=== PATIENT | female | born 1945 | race Caucasian/White ===

== ENCOUNTER → 2018-05-05 08:33 | Outpatient (CLI) | payer MEDICARE, OTHER, SELFPAY ==
[2018-05-05 10:22] LABS: Cholesterol 233 mg/dL (140-199); Glucose 92 mg/dL (80-110); HDL Cholesterol 49 mg/dL (40-60); LDL Cholesterol Calculated 151 mg/dL (<100); Triglycerides 164 mg/dL (35-150)
== END ==
PROVIDERS: PCP Physician Assistant; Visit Provider Physician Assistant
DX: Z13.1 Encounter for screening for diabetes mellitus (principal); Z13.220 Encounter for screening for lipoid disorders; Z13.6 Encounter for screening for cardiovascular disorders
CPT/HCPCS: 36415; 80061; 82947

== ENCOUNTER → 2018-07-06 14:57 | Outpatient (CLI) | payer MEDICARE, OTHER, SELFPAY ==
--- NOTE | 2018-07-06 15:02 | DI.RAD.S_ITS ---
PROCEDURE: XR WRIST RT MIN 3V INDICATIONS: Pain thumb/wrist TECHNIQUE: 4 views of the wrist were acquired. COMPARISON: [facility], , WRIST MINIMUM 3 VIEWS LEFT, 08/02/2015, 14:36. FINDINGS: Bones: No fractures or dislocations. No suspicious bony lesions. First CMC and triscaphe joint degeneration Soft tissues: No suspicious soft tissue calcifications. IMPRESSION: First CMC and triscaphe joint degeneration Dictated by: Adonay Gardner M.D. on 07/06/2018 at 16:16 Approved by: Adonay Gardner M.D. on 07/06/2018 at 16:25
--- NOTE | 2018-07-06 15:02 | DI.RAD.S_ITS ---
PROCEDURE: XR HAND RT MIN 3V INDICATIONS: Pain thumb/wrist TECHNIQUE: 3 views of the hand(s) acquired. COMPARISON: [facility], , HAND 3V LEFT, 08/02/2015, 14:36. FINDINGS: Bones: No fractures or dislocations. Carpal bones are normally aligned. No suspicious bony lesions. First CMC and triscaphe joint degeneration. Diffuse interphalangeal joint degeneration, with some marginal lucencies for example the PIP joint of the ring finger. Additional marginal lucencies present at the DIP joints of the index and middle finger as well as the PIP joints of the middle finger. Soft tissues: No suspicious soft tissue calcifications. IMPRESSION: First CMC and triscaphe joint degeneration Pauciarticular marginal lucencies raise the possibility of erosive arthropathy as detailed above. Dictated by: Adonay Gardner M.D. on 07/06/2018 at 16:14 Approved by: Adonay Gardner M.D. on 07/06/2018 at 16:16
== END ==
PROVIDERS: PCP Physician Assistant; Visit Provider Physician Assistant
DX: M79.644 Pain in right finger(s) (principal); M25.531 Pain in right wrist; M79.641 Pain in right hand; M18.11 Unilateral primary osteoarthritis of first carpometacarpal joint, right hand; M19.031 Primary osteoarthritis, right wrist; Z98.890 Other specified postprocedural states
CPT/HCPCS: 73110; 73130

== ENCOUNTER → 2019-01-19 08:49 | Outpatient (CLI) | payer MEDICARE, OTHER, SELFPAY ==
[2019-01-19 09:37] LABS: Cholesterol 258 mg/dL (140-199); HDL Cholesterol 48 mg/dL (40-60); LDL Cholesterol Calculated 186 mg/dL (<100); Triglycerides 120 mg/dL (35-150)
== END ==
PROVIDERS: PCP Physician Assistant; Visit Provider Physician Assistant
DX: E78.2 Mixed hyperlipidemia (principal)
CPT/HCPCS: 36415; 80061

== ENCOUNTER 2019-04-16 22:50 | Observation (INO) | payer MEDICARE, OTHER, SELFPAY ==
[2019-04-16 23:03] VITALS: BP 189/95; PULSE 124; RESP 20; O2SAT 98
--- NOTE | 2019-04-16 23:04 | DI.RAD.S_ITS ---
PROCEDURE: XR CHEST 1V INDICATIONS: chest pain TECHNIQUE: One view of the chest was acquired. COMPARISON: None. FINDINGS: Surgical changes and devices: Bilateral shoulder arthroplasties. Lungs and pleura: Lungs are clear. No pleural effusions or pneumothorax. Mediastinum: Mediastinal contours appear normal. Heart size is normal. Bones and chest wall: No suspicious bony lesions. Overlying soft tissues appear unremarkable. IMPRESSION: No acute cardiopulmonary disease process. Dictated by: Marina Moran MD, PhD on 04/17/2019 at 9:01 Approved by: Marina Moran MD, PhD on 04/17/2019 at 9:04
[2019-04-16 23:19] LABS: Add Manual Diff / Slide Review NO; Basophils Absolute Auto 0 /uL (0-100); Basophils Percent Auto 0.6 % (0-2); Eosinophils Absolute Auto 100 /uL (0-450); Eosinophils Percent Auto 1.6 % (2-4); Hematocrit 44.2 % (36-46); Lymphocytes Absolute Auto 3000 /uL (1100-4500); Lymphocytes Percent Auto 45.2 % (25-40); Mean Corpuscular Hemoglobin 30.5 PG (26-34); Mean Corpuscular Volume 89.7 fL (80-100); Monocytes Absolute Auto 600 /uL (0-900); Monocytes Percent Auto 9.4 % (3-14); Neutrophils Absolute Auto 2900 /uL (1500-7000); Neutrophils Percent Auto 43.2 % (50-75); Platelet Count 283 X10^3/uL (150-400); Red Blood Cell Count 4.93 X10^6/uL (4.0-5.2); Red Cell Distribution Width 13.7 % (11.6-14.8); White Blood Cell Count 6.7 X10^3/uL (4.5-11.0)
--- NOTE | 2019-04-16 23:19 | ED_ITS ---
HPI - Chest Pain General Chief Complaint: Chest Pain Stated Complaint: irregular heart beat Time Seen by Provider: 04/16/19 23:18 Source: patient Mode of arrival: Ambulatory History of Present Illness HPI narrative: Chief complaint: Palpitations with rapid heart rate History of present illness: The patient is a 73-year-old female who has no previous history of atrial fibrillation. She developed palpitations with a rapid heart rate. She denied any chest pain but had some mild chest pressure. She thought maybe this was a flare of her asthma so she took 2 puffs of her inhaler. She has had mild shortness of breath with exertion and walking up stairs. She thought that she may be developing a stress reaction. She denied any headache but has some degree of posterior neck pain. She had no jaw pain. She did feel short of breath. She admits to a history of asthma but denies a history of heart murmur COPD myocardial infarction hypertension diabetes mellitus. She did feel dizzy and lightheaded. Intermittently she has had ind igestion. She denies any fever chills or sweats cough nausea vomiting diarrhea change in bowel habits or urinary symptoms. Related Data Home Medications Medication Instructions Recorded Confirmed cetirizine 10 mg PO QDAYP PRN #0 06/03/16 07/06/18 multivitamin [Multiple Vitamins] 1 tab PO QDAY #0 12/16/16 04/17/19 Fish Oil 1 cap PO .QDAY 07/06/18 04/17/19 fluticasone propionate 110 2 puff INHALATION Q12H PRN 07/06/18 07/06/18 mcg/actuation HFA aerosol inhaler Previous Rx's Medication Instructions Recorded albuterol sulfate 90 mcg/actuation 2 puff INHALATION Q4-6H PRN #18 08/06/17 aerosol inhaler gram rivaroxaban 20 mg PO DAILY #30 tab 04/17/19 Allergies Allergy/AdvReac Type Severity Reaction Status Date / Time cephalexin [From KEFLEX] AdvReac Intermediate rash Verified 07/06/18 14:26 morphine [MORPHINE] AdvReac Intermediate rash Verified 07/06/18 14:26 high dose flu shot Allergy Throat Uncoded 07/06/18 14:26 closing, hoarsness Review of Systems Review of Systems Narrative: The patient's review of systems were all negative except those mentioned in the history of present illness. Patient History Medical History Asthma (Inactive) Family history of cardiovascular disease (Inactive) Mixed hyperlipidemia (Inactive) Seasonal allergic rhinitis due to pollen (Inactive) Surgical History History of ankle surgery (Acute) History of replacement of both shoulder joints (Acute) Status post appendectomy Status post knee surgery Family History Father Leukemia Cancer Social History household members: none Smoking Status: Never smoker second hand exposure: No alcohol intake: current substance use type: does not use Smoking Status: Never smoker Exam Narrative Exam Narrative: PHYSICAL EXAM: CONSTITUTIONAL: Awake, Alert, Oriented, Coherent, Cooperative in NAD. Does not appear toxic or ill. HEAD: AT/NC EENT: PERRL, FROM of eyes, no discharge, Oral mucosa is moist and pink, posterior pharynx is without erythema or exudate. NECK: Supple, no obvious JVD, Trachea is midline without stridor, no palpable LN or masses. SPINE: No gross deformity, no palpable tenderness of the cervical, thoracic, lumbar or sacral spine. No CVA tenderness. THORAX: No deformity, retractions, chest wall tenderness, subcutaneous air or crepitice. LUNGS: Clear with symmetrical breath sounds without respiratory distress HEART: The patient's heart rhythm is irregular irregular with variable S1-S2. Intermittently her rate is fast. The monitor reveals that her heart rate ranges from [address]. ABDOMEN: Soft, non-tender, normal bowel sounds without guarding, rebound, rigidity or palpable mass EXTREMITIES: No edema, cyanosis, deformity or tenderness. SKIN: No rash, bruising, petechiae or purpura. NEURO: Awake, alert, oriented, conversive, cranial nerves II-XII are symmetrical and normal, moves all 4 extremities and is ambulatory Initial Vital Signs Initial Vital Signs: Vital Signs Pulse Rate 124 H 04/16/19 23:03 Respiratory Rate 20 04/16/19 23:03 Blood Pressure 189/95 H 04/16/19 23:03 Pulse Oximetry 98 04/16/19 23:03 Course Course Course Narrative: 0106 I discussed the patient with Dr. Martinez in the patient will be admitted to a general floor and telemetry Orders Ordered: Discontinued Medications Acetaminophen (Tylenol) 650 mg PO Q6HR PRN PRN Reason: Fever/Mild Pain (1-3) Albuterol (Ventolin Hfa) 2 puff INH RTQ4HR PRN PRN Reason: Shortness Of Breath Or Wheezing Albuterol (Ventolin) 2.5 mg INH [id number] PRN PRN Reason: Shortness Of Breath Aspirin (Aspirin Ec) 81 mg PO DAILY [facility] Last Admin: 04/17/19 08:50 Dose: 81 mg Documented by: FRANCES Atorvastatin Calcium (Lipitor) 20 mg PO BEDTIME [facility] Diltiazem HCl (Cardizem) 10 mg IV NOW ONE Stop: 04/16/19 23:22 Last Admin: 04/16/19 23:28 Dose: 10 mg Documented by: TATIANA Enoxaparin Sodium (Lovenox) 40 mg SUBCUT DAILY [facility] Last Admin: 04/17/19 08:50 Dose: 40 mg Documented by: FRANCES Sodium Chloride (Normal Saline 0.9%) 1,000 mls @ 75 mls/hr IV CONT [facility] Last Admin: 04/17/19 02:48 Dose: 75 mls/hr Documented by: NATHAN Loratadine (Claritin) 10 mg PO DAILY PRN PRN Reason: ALLERGIC SYMPTOMS Lorazepam (Ativan) 0.5 mg IV NOW ONE Stop: 04/16/19 23:39 Last Admin: 04/16/19 23:47 Dose: 0.5 mg Documented by: TATIANA Metoprolol Succinate (Toprol Xl) 12.5 mg PO NOW ONE Stop: 04/17/19 02:08 Last Admin: 04/17/19 02:41 Dose: 12.5 mg Documented by: NATHAN Naloxone HCl (Narcan) 0.2 mg IV Q2MIN PRN PRN Reason: Opiate Reversal Ondansetron HCl (Zofran) 4 mg IV Q8HR PRN PRN Reason: Nausea And Vomiting Potassium Chloride (Klor-Con M20) 40 meq PO NOW ONE Stop: 04/17/19 01:24 Last Admin: 04/17/19 02:40 Dose: 40 meq Documented by: NATHAN Vital Signs Vital signs: Vital Signs - 8 hr 04/16/19 23:03 04/16/19 23:28 04/17/19 00:02 Pulse Rate 124 H 135 H 97 H Respiratory Rate 20 19 Blood Pressure 189/95 H 195/95 H Blood Pressure [Left Arm] 178/92 H Pulse Oximetry 98 97 MDM - Chest Pain Medical Records Data Attestation: I reviewed the patient's medical records. Lab Data Attestation: I reviewed the patient's lab results. Result diagrams: 04/16/19 22:50 04/17/19 05:33 Labs: Lab Results 04/16/19 04/16/19 04/16/19 Range/Units 22:50 22:50 22:50 WBC 6.7 (4.5-11.0) X10^3/uL RBC 4.93 (4.0-5.2) X10^6/uL Hgb 15.0 (12.0-16.0) g/dL Hct 44.2 (36-46) % MCV 89.7 (80-100) fL MCH 30.5 (26-34) PG MCHC 34.0 (30-36) % RDW 13.7 (11.6-14.8) % Plt Count 283 (150-400) X10^3/uL Neut % (Auto) 43.2 L (50-75) % Lymph % (Auto) 45.2 H (25-40) % [place] % (Auto) 9.4 (3-14) % Eos % (Auto) 1.6 L (2-4) % Baso % (Auto) 0.6 (0-2) % Neut # (Auto) 2900 (0242-9086) /uL Lymph # (Auto) 3000 (7453-0559) /uL [place] # (Auto) 600 (0-900) /uL Eos # (Auto) 100 (0-450) /uL Baso # (Auto) 0 (0-100) /uL PT (10.1-12.7) SECONDS INR (0.9-1.3) APTT (26.4-36.2) SECONDS Sodium 142 (137-145) mmol/L Potassium 3.8 (3.4-5.1) mmol/L Chloride 102 (98-107) mmol/L Carbon Dioxide 32 (22-32) mmol/L BUN 20 H (7-17) mg/dL Creatinine 0.70 (0.52-1.04) mg/dL Estimated GFR > 60.0 (>60) mL/min BUN/Creatinine Ratio 28.6 H (6-22) Glucose 99 (80-110) mg/dL Calcium 9.9 (8.4-10.2) mg/dL Magnesium 2.2 (1.6-2.3) mg/dL Total Bilirubin 0.3 (0.2-1.3) mg/dL AST 52 H (14-36) IU/L ALT 47 H (<35) IU/L Alkaline Phosphatase 117 (38-126) U/L Total Creatine Kinase 105 (30-135) U/L Troponin I < 0.012 (0.01-0.034) ng/mL Total Protein 8.2 (6.3-8.2) g/dL Albumin 4.8 (3.5-5.0) g/dL Globulin 3.4 (1.7-4.1) g/dL Albumin/Globulin Ratio 1.4 (1.0-2.8) TSH (0.47-4.68) uIU/mL 04/16/19 04/16/19 Range/Units 22:50 22:57 WBC (4.5-11.0) X10^3/uL RBC (4.0-5.2) X10^6/uL Hgb (12.0-16.0) g/dL Hct (36-46) % MCV (80-100) fL MCH (26-34) PG MCHC (30-36) % RDW (11.6-14.8) % Plt Count (150-400) X10^3/uL Neut % (Auto) (50-75) % Lymph % (Auto) (25-40) % [place] % (Auto) (3-14) % Eos % (Auto) (2-4) % Baso % (Auto) (0-2) % Neut # (Auto) (6652-0921) /uL Lymph # (Auto) (0691-1280) /uL [place] # (Auto) (0-900) /uL Eos # (Auto) (0-450) /uL Baso # (Auto) (0-100) /uL PT 10.2 (10.1-12.7) SECONDS INR 0.9 (0.9-1.3) APTT 34 (26.4-36.2) SECONDS Sodium (137-145) mmol/L Potassium (3.4-5.1) mmol/L Chloride (98-107) mmol/L Carbon Dioxide (22-32) mmol/L BUN (7-17) mg/dL Creatinine (0.52-1.04) mg/dL Estimated GFR (>60) mL/min BUN/Creatinine Ratio (6-22) Glucose (80-110) mg/dL Calcium (8.4-10.2) mg/dL Magnesium (1.6-2.3) mg/dL Total Bilirubin (0.2-1.3) mg/dL AST (14-36) IU/L ALT (<35) IU/L Alkaline Phosphatase (38-126) U/L Total Creatine Kinase (30-135) U/L Troponin I (0.01-0.034) ng/mL Total Protein (6.3-8.2) g/dL Albumin (3.5-5.0) g/dL Globulin (1.7-4.1) g/dL Albumin/Globulin Ratio (1.0-2.8) TSH 3.97 (0.47-4.68) uIU/mL ECG Data Attestation: I personally reviewed and interpreted this ECG as follows: Interpretation: The patient's EKG obtained on April 16 at 22: 5A revealed atrial fibrillation with rapid ventricular rate. The ventricular rate is 114. QRS is slightly prolonged at 104 milliseconds. QTC is normal at 396 milliseconds the patient has a left axis deviation. The patient has nonspecific ST segment depressions in V3 through V6. There are no acute T-wave abnormalities. Discharge Plan Departure Patient Disposition: Admitted as Observation Clinical Impression: Atrial fibrillation with rapid ventricular response Discharge Date/Time: 04/17/19 02:09 Admit Date/Time: 04/17/19 01:20 Admit Provider: Albert Martinez
[2019-04-16 23:22] LABS: Alanine Aminotransferase 47 IU/L (<35); Albumin 4.8 g/dL (3.5-5.0); Albumin Globulin Ratio 1.4 (1.0-2.8); Alkaline Phosphatase 117 U/L (38-126); Aspartate Aminotransferase 52 IU/L (14-36); BUN Creatinine Ratio 28.6 (6-22); Bilirubin Total 0.3 mg/dL (0.2-1.3); Blood Urea Nitrogen 20 mg/dL (7-17); Calcium 9.9 mg/dL (8.4-10.2); Carbon Dioxide 32 mmol/L (22-32); Chloride 102 mmol/L (98-107); Estimated Glomerular Filt Rate > 60.0 mL/min (>60); Globulin 3.4 g/dL (1.7-4.1); Glucose 99 mg/dL (80-110); HEMOLYSIS 28 (0-50); Potassium 3.8 mmol/L (3.4-5.1); Sodium 142 mmol/L (137-145); Total Protein 8.2 g/dL (6.3-8.2)
[2019-04-16 23:28] VITALS: BP 195/95; PULSE 135
[2019-04-16] MEDS: dilTIAZem 5 MG/ML SDV 10 MG IV (23:28)
[2019-04-16 23:34] LABS: Troponin I < 0.012 ng/mL (0.01-0.034)
[2019-04-16] MEDS: LORazepam 2 MG/ML INJ 0.5 MG IV (23:47)
[2019-04-16 23:48] LABS: Creatine Kinase 105 U/L (30-135); Magnesium 2.2 mg/dL (1.6-2.3)
[2019-04-17] VITALS (12 sets, daily range): BP systolic 118–178; BP diastolic 71–92; PULSE 59–97; RESP 14–19; TEMP 36.4–37.1; O2SAT 93–99; BMI 28.8
[2019-04-17 00:37] LABS: Thyroid Stimulating Hormone 3.97 uIU/mL (0.47-4.68)
[2019-04-17 01:32] LABS: INR 0.9 (0.9-1.3); Prothrombin Time 10.2 SECONDS (10.1-12.7)
[2019-04-17 01:35] LABS: PTT Partial Thromboplastin Tim 34 SECONDS (26.4-36.2)
--- NOTE | 2019-04-17 02:19 | PM.HP.1 ---
History of Present Illness History of Present Illness Date Patient Seen: 04/17/19 Time Patient Seen: 02:00 Chief complaint: irregular heart beat Narrative: Ms. Alicia Richmond is a 73-year-old female with history significant for asthma, seasonal allergies and mixed hyperlipidemia treated with lifestyle changes who presents to the ER with an onset of feeling unwell with fluttering palpitations and chest tightness, rapid irregular heartbeat, lightheadedness and dizziness that started at 9:00 p.m. tonight. The patient describes earlier in the day feeling winded somewhat and therefore used her albuterol inhaler without relief. She endorses consuming 4-5 cups of caffeinated drinks. She has had no prior episodes of tachycardia but has a family history cardiovascular disease notable for atrial fibrillation. She provides a history of having walking pneumonia at [facility] finally resolving around [place] time but no complaints of illness since. She has had no fevers or chills, headaches or visual changes. She has had no nasal congestion or sore throat. She has had chest tightness as described above that is resolved and is no longer short of breath. She has had no cough or wheezing though she has a history of asthma that is seasonal. She denies abdominal pain, heartburn, nausea or vomiting, diarrhea or constipation. She reports no urinary symptoms. She is normally active and was walking her dog early in the evening tonight asymptomatic. Upon arrival to the ER the patient is found to have a rapid heartbeat at 1:20 a.m. 4-180, hypertensive at 189/95, respirations of 20 saturating 98% on room air. A 12 lead EKG is obtained which reveals atrial fibrillation with ventricular rate of 114 with left axis the left anterior fascicular block, no ectopy, ST or T-wave changes. A chest x-ray shows no acute cardiopulmonary pathology. On laboratory analysis she has white count of 6.7, hemoglobin of 15.0 command crit 44.2 and platelets of 238. On chemistry she has potassium 3.8 and a magnesium of 2.2 she has a BUN of 20 and creatinine is 0.7 with a nonfasting glucose of 99. She has a TSH of 3.97. In the ER the patient is given Cardizem 10 mg IV with reduction of heart rate to 96 and upon arrival to the floor the patient has converted to a sinus rhythm. The patient is admitted to medicine service for further evaluation and treatment for new onset atrial fibrillation. Patient History Medical History (Updated 04/17/19 @ 02:34 by DASHAWN Ware) Asthma (Inactive) Family history of cardiovascular disease (Inactive) Mixed hyperlipidemia (Inactive) Seasonal allergic rhinitis due to pollen (Inactive) Surgical History (Updated 04/17/19 @ 02:34 by DASHAWN Ware) History of ankle surgery (Acute) History of replacement of both shoulder joints (Acute) Status post appendectomy Status post knee surgery Family & Social History Family History (Updated 04/17/19 @ 02:35 by DASHAWN Ware) Father Leukemia Cancer Tobacco & Substance use: Smoking Status Never smoker alcohol intake current Comment: The patient lives alone in a condominium with her doctor and has been for 20 years. She provides a family history of her father passing away from leukemia and prostate cancer, her mother having atrial fibrillation and strokes, her brother had hyperlipidemia and atrial fibrillation. Smoking: The patient denies using tobacco products. Alcohol: The patient endorses drinking occasionally socially. Substance use: The patient denies recreation pharmaceuticals herbal or cannabis products. Advanced directives: The patient has formal advanced directives and states her wishes to be FULL CODE. She designates her brother Sheridan Singh to be her surrogate decision maker. Meds Home Medications and Allergies Home Medications Medication Instructions Recorded Confirmed Type cetirizine 10 mg PO QDAYP PRN #0 06/03/16 07/06/18 History multivitamin [Multiple Vitamins] 1 tab PO QDAY #0 12/16/16 04/17/19 History albuterol sulfate 90 mcg/actuation 2 puff INHALATION Q4-6H PRN #18 08/06/17 04/17/19 Rx aerosol inhaler gram Fish Oil 1 cap PO .QDAY 07/06/18 04/17/19 History fluticasone propionate 110 2 puff INHALATION Q12H PRN 07/06/18 07/06/18 History mcg/actuation HFA aerosol inhaler Allergies Allergy/AdvReac Type Severity Reaction Status Date / Time cephalexin [From KEFLEX] AdvReac Intermediate rash Verified 07/06/18 14:26 morphine [MORPHINE] AdvReac Intermediate rash Verified 07/06/18 14:26 high dose flu shot Allergy Throat Uncoded 07/06/18 14:26 closing, hoarsness Review of Systems Review of Systems Narrative: All systems reviewed and found unremarkable under discussed in the HPI above. Exam Vital Signs (past 8 hours): - 04/16/19 23:03 04/16/19 23:28 04/17/19 00:02 Pulse Rate 124 H 135 H 97 H Respiratory Rate 20 19 Blood Pressure 189/95 H 195/95 H Blood Pressure [Left Arm] 178/92 H Pulse Oximetry 98 97 04/17/19 01:39 Pulse Rate 73 Respiratory Rate 19 Blood Pressure Blood Pressure [Left Arm] 137/74 Pulse Oximetry 97 Oxygen Delivery Method Room Air Narrative Exam Narrative: GENERAL APPEARANCE: well developed, well nourished, restless and uncomfortable appearing HEENT: Normocephalic, PERRLA, conjunctiva clear, EOMs intact without nystagmus, no sinus tenderness to percussion, no rhinorrhea, mucous membranes are moist and pink without lesions or exudate. NECK/THYROID: neck supple, no JVD, no carotid bruit, no thyromegaly, trachea midline. LYMPH NODES: no cervical or supraclavicular lymphadenopathy. SKIN: [place], warm and dry, no visible lesions, rashes, ulcerations or petechiae. HEART: Irregularly irregular rhythm, S1-S2, 1/6 systolic murmur, no rubs or gallops, brisk capillary refill, no edema LUNGS: clear to auscultation bilaterally, no coarseness crackles or wheezing, no cough present CHEST: Symmetrical movement, no accessory muscle use, good tidal volume. ABDOMEN: Soft, no distention, no abdominal tenderness, no guarding or peritoneal signs, no organomegaly, no flank or suprapubic tenderness, active bowel tones. BACK: Normal curvature, nontender to palpation, no CVA tenderness on percussion EXTREMITIES: moves all extremities, strength is 5/5 and symmetrical, no deformities or joint effusions. NEUROLOGIC: AAO x4, cranial nerves II-XII grossly intact, altered sensation with slight tingling, hearing bilateral lower extremities. PSYCH: Good eye contact, anxious, cooperative, appropriate with stable behavior Objective Labs Result Diagrams: 04/16/19 22:50 04/16/19 22:50 Labs: Laboratory Results - last 24 hr 04/16/19 04/16/19 04/16/19 22:50 22:50 22:50 WBC 6.7 RBC 4.93 Hgb 15.0 Hct 44.2 MCV 89.7 MCH 30.5 MCHC 34.0 RDW 13.7 Plt Count 283 Neut % (Auto) 43.2 L Lymph % (Auto) 45.2 H [place] % (Auto) 9.4 Eos % (Auto) 1.6 L Baso % (Auto) 0.6 Neut # (Auto) 2900 Lymph # (Auto) 3000 [place] # (Auto) 600 Eos # (Auto) 100 Baso # (Auto) 0 PT INR APTT Sodium 142 Potassium 3.8 Chloride 102 Carbon Dioxide 32 BUN 20 H Creatinine 0.70 Estimated GFR > 60.0 BUN/Creatinine Ratio 28.6 H Glucose 99 Calcium 9.9 Magnesium 2.2 Total Bilirubin 0.3 AST 52 H ALT 47 H Alkaline Phosphatase 117 Total Creatine Kinase 105 Troponin I < 0.012 Total Protein 8.2 Albumin 4.8 Globulin 3.4 Albumin/Globulin Ratio 1.4 TSH 04/16/19 04/16/19 22:50 22:57 WBC RBC Hgb Hct MCV MCH MCHC RDW Plt Count Neut % (Auto) Lymph % (Auto) [place] % (Auto) Eos % (Auto) Baso % (Auto) Neut # (Auto) Lymph # (Auto) [place] # (Auto) Eos # (Auto) Baso # (Auto) PT 10.2 INR 0.9 APTT 34 Sodium Potassium Chloride Carbon Dioxide BUN Creatinine Estimated GFR BUN/Creatinine Ratio Glucose Calcium Magnesium Total Bilirubin AST ALT Alkaline Phosphatase Total Creatine Kinase Troponin I Total Protein Albumin Globulin Albumin/Globulin Ratio TSH 3.97 Assessment & Plan Assessment & Plan narrative: This is a 73-year-old female patient who presents a new onset of atrial fibrillation with shortness of breath earlier in the day began having chest fluttering lightheadedness and dizziness at 9:00 p.m. tonight. The patient has no prior episodes but a finely history cardiovascular disease notably for atrial fibrillation. 1. New onset atrial fibrillation, acute, present on admission, active. Patient with onset of acute symptoms at 9:00 p.m. this evening, fluttering in her chest, chest tightness, SOB, diaphoresis and lightheadedness. Positive family history of cardiovascular disease and atrial fibrillation. Patient reports increased stress as well as 4-5 caffeinated drinks today. Upon arrival patient's heart rate is 120s to 180s in atrial fibrillation. Troponin is negative at less than 0.012, 12 lead EKG showing AFib at a rate of 114 with left axis and left anterior fascicular block no ectopy, ST or T-wave changes. Patient received Cardizem 10 mg IV in the emergency department with decrease in atrial fibrillation to a controlled rate in the 90s. Potassium 3.8, will give 40 mEq of potassium extended release, magnesium is adequate at 2.2. Will give metoprolol succinate 12.5 p.o. x1 now. 2. Mild persistent asthma, chronic, stable Patient with history of seasonal asthma using albuterol inhaler as needed. Has previously had Flovent prescribed but has not used it for over a year. Patient used albuterol earlier for dyspnea without benefit. Respiratory therapy to consult and evaluate. Continue albuterol inhaler 2 puffs every 4 hours as needed for shortness of breath or wheezing. Albuterol nebulizer every 2 hours as needed. 3. Mixed hyperlipidemia, presumed stable -history of elevated lipids undergoing lifestyle modification. -will obtain an updated lipid panel. -will start atorvastatin 20 mg daily. VTE prophylaxis: SCDs, Lovenox Diet: Heart healthy IVF: Normal saline 75 cc/hour. The patient is admitted to the hospital for further treatment evaluation of new onset atrial fibrillation. The patient is at risk for complications and adverse events. The patient is admitted as observation with expected length of stay to be less than 2 midnights.
[2019-04-17] MEDS: POTASSIUM CHLORIDE 20 MEQ TAB 40 MEQ PO (02:40)
[2019-04-17] MEDS: METOPROLOL ER 25 MG TABLET 12.5 MG PO (02:41)
[2019-04-17] MEDS: SODIUM CHLORIDE 0.9% 1,000 ML 75 ML IV (02:48)
[2019-04-17 06:16] LABS: BUN Creatinine Ratio 28.3 (6-22); Blood Urea Nitrogen 17 mg/dL (7-17); Calcium 8.8 mg/dL (8.4-10.2); Carbon Dioxide 26 mmol/L (22-32); Chloride 107 mmol/L (98-107); Estimated Glomerular Filt Rate > 60.0 mL/min (>60); Glucose 100 mg/dL (80-110); HEMOLYSIS < 15 (0-50); Potassium 4.4 mmol/L (3.4-5.1); Sodium 141 mmol/L (137-145)
[2019-04-17 06:17] LABS: Cholesterol 213 mg/dL (140-199); HDL Cholesterol 46 mg/dL (40-60); LDL Cholesterol Calculated 138 mg/dL (<100); Triglycerides 144 mg/dL (35-150)
[2019-04-17] MEDS: ENOXAPARIN 40 MG/0.4 ML SYRINGE SUBCUT (08:50)
[2019-04-17] MEDS: ASPIRIN EC 81 MG TABLET PO (08:50)
--- NOTE | 2019-04-17 09:02 | CM.DANOTE ---
DCP: Case received, EMR reviewed and met with patient. Introduced self and role. Was able to obtain information from patient regarding baseline history regarding activity and living situation. DCP assessment completed with information currently available. Patient is a 73 year old female who admitted early this morning to the care of the hospitalist team. PCP: Dr. Bill Canales (Formerly Janey Baker, [facility]) Payer: confirmed: Medicare/[employer] PPO. Patient came to the hospital via family vehicle secondary to shortness of breath and irregular heart beat. Patient holds diagnosis of a-fib with rapid v. response. Met with patient in her room. Her brother, [place], was at bedside. She is alert and oriented. She resides alone and is independent. She confirmed that she is now seeing Bill Canales, her primary prior was Janey Baker. She stated she has not had any heart problems before. P: DCP to continue to follow and be available for any resources needed. Patient should be able to go home when she is medically stable. Tameka Elias, RN/[employer]
--- NOTE | 2019-04-17 10:56 | PC.NURSE ---
AM NOTE - pt is alert, denies chest pain or nausea, hr reg 58 this am, ra 98%.
--- NOTE | 2019-04-17 11:20 | DI.ECHO.S_ITS ---
Echocardiogram Report + + :Name: YOLIS US Study Date: 04/17/2019 Height: 64 in : :[facility] Weight: 167 lb : : Gender: Female BSA: 1.8 m2 : :: 1945 Age: 73 yrs BP: 118/74 mmHg: :Reason For Study: Atrial fibrillation : :Ordering Physician: [place] : :Hospitalist Performed By: Esther Mesa : :Referring: JAZMYNE AUGUST : + + Interpretation Summary Normal left ventricle size with ejection fraction 60-65%. Both atria are normal in size. Mild aortic valve sclerosis. Mild aortic regurgitation. Mildly enlarged ascending aorta and aortic arch. Procedure: A two-dimensional transthoracic echocardiogram with color flow and Doppler was performed. The study quality was technically adequate. There is no prior echocardiogram noted for this patient. The patient was in sinus bradycardia with heart rates between 52-67 bpm during the exam. Left Ventricle: The left ventricle is normal in size and wall thickness. The ejection fraction is estimated to be 60-65%. Left ventricular wall motion is normal. Diastolic parameters suggest probable normal left ventricular diastolic function and normal filling pressures. Right Ventricle: The right ventricle is normal in size and function. Atria: Both atria are normal in size. There is no Doppler evidence for an interatrial shunt. Mitral Valve: The mitral valve is normal in structure and function. There is trace mitral regurgitation. Aortic Valve: The aortic valve is trileaflet. The aortic valve opens well. There is mild aortic valve sclerosis. There is mild aortic regurgitation. Tricuspid Valve: The tricuspid valve is normal in structure but is abnormal in function. There is a trace or physiologic amount of tricuspid regurgitation. Pulmonary artery pressures cannot be estimated because of the lack of a measurable TR jet velocity. Pulmonic Valve: The pulmonic valve is not well visualized. There is a trace or physiologic amount of pulmonic regurgitation. Great Vessels: The aortic root is normal size. The ascending aorta is mildly enlarged. The aortic arch is mildly enlarged. The IVC is dilated (diameter is greater than 2.1 cm) yet it collapses greater than 50% with a sniff. This suggests a right atrial pressure of 8 mm Hg. Pericardium/ Pleura There is no pericardial effusion. MMode/2D Measurements & Calculations LVIDd: 4.0 cm LVOT diam: 2.0 cm LVIDs: 2.4 cm Ao root diam: 2.7 cm FS: 38.5 % asc Aorta Diam: 3.4 cm EPSS: 0.73 cm Ao Arch Diam (Prox Trans): 3.0 cm IVSd: 0.97 cm LVPWd: 0.79 cm LV albright. diameter/BSA (cm/m^2): 2.2 LV sys. diameter/BSA (cm/m^2): 1.3 LA A2 area: 15.9 cm2 RA long axis: 3.5 cm LA A4 area: 13.2 cm2 RA area: 10.4 cm2 LA length (vol): 4.2 cm RA vol: 26.6 ml LA vol: 42.1 ml RA : 14.7 ml/m2 LA vol index: 23.2 ml/m2 IVC diam: 2.3 cm RVD1 (basal): 2.7 cm RVD2 (mid): 2.1 cm TAPSE: 1.9 cm Doppler Measurements & Calculations Ao V2 max: 105.2 cm/sec LVOT Max Haris: 100.9 cm/sec Ao V2 mean: 72.2 cm/sec LV V1 max P.1 mmHg Ao max P.4 mmHg LV V1 VTI: 23.6 cm Ao mean P.4 mmHg CORNEL(I,D): 3.2 cm2 Ao V2 VTI: 22.7 cm CORNEL(V,D): 3.0 cm2 sev ratio: 1.0 CORNEL indexed to BSA (cm^2/m^2): 1.8 MV E max haris: 71.8 cm/sec PA V2 max: 69.4 cm/sec MV A max haris: 64.5 cm/sec PA V2 mean: 46.6 cm/sec MV E/A: 1.1 PA mean P.0 mmHg Med Peak E' Haris: 6.6 cm/sec PA pr(Accel): 4.3 mmHg E/E' med: 10.8 Lat Peak E' Haris: 8.7 cm/sec E/E' lat: 8.2 E/e' average: 9.5 MV dec time: 0.29 sec MV P1/2t: 85.4 msec MV P1/2t max haris: 73.1 cm/sec SV(LVOT): 72.9 ml MVA(P1/2t): 2.6 cm2 _ Electronically signed by: Karey Basurto on Reading Physician:04/17/2019 03:45 PM
--- NOTE | 2019-04-17 13:54 | DIET.PN ---
Dietary Progress Note Assessment: Mr. Richmond is a 73 yof history significant for asthma, seasonal allergies and mixed hyperlipidemia treated with lifestyle changes who presents feeling unwell with fluttering palpitations and chest tightness, rapid irregular heartbeat, lightheadedness and dizziness. She reports having consumed 5-6 cups of coffee the day of admission as she was running around all day. For the last several days she has had more carbonated beverages that normal and associated her heavy chest to reflux. She reports good appetite consuming cereals, yogurt, toast, soups, salads, fruit, and cheese on a daily basis. Activity involves walking her dog. HT: 162.56 cm WT: 76 kg BMI: 28.8 Labs: AST: 52 ALT: 47 Chol: 213 LDL: 138 HDL: 46 Tr MNA: 14 Pascual: 22 Nutrition Diagnosis: Altered nutrition related lab values r/t cardiac, liver disorders aeb increased AST, ALT, Serium lipids, shortness of breat, excess intake of food high in sodium, caffeine, fat. Interventions: 1. Discussed hear healthy nutrition therapy. Recommended limiting salt to 2g/day, cholesterol to 200 mg, caffeine to < 300 mg. 2. Discussed importance of non-caffeinated fluids. 3. Provided handouts of [facility] healthy food lists to increase and to limit. Diet Order: Heart healthy EER: 1600 anu @ 30cal/kg IBW 70-80g pro @ 1.3-1.5 g/kg IBW Monitoring/Evaluations: Wt, PO's, labs.
--- NOTE | 2019-04-17 14:05 | PM.DS.1 ---
History of Present Illness History of Present Illness Date Patient Seen: 04/17/19 Chief complaint: irregular heart beat Narrative: Ms. Alicia Richmond is a 73-year-old female with history significant for asthma, seasonal allergies and mixed hyperlipidemia treated with lifestyle changes who presents to the ER with an onset of feeling unwell with fluttering palpitations and chest tightness, rapid irregular heartbeat, lightheadedness and dizziness that started at 9:00 p.m. tonight. The patient describes earlier in the day feeling winded somewhat and therefore used her albuterol inhaler without relief. She endorses consuming 4-5 cups of caffeinated drinks. She has had no prior episodes of tachycardia but has a family history cardiovascular disease notable for atrial fibrillation. She provides a history of having walking pneumonia at [facility] finally resolving around [place] time but no complaints of illness since. She has had no fevers or chills, headaches or visual changes. She has had no nasal congestion or sore throat. She has had chest tightness as described above that is resolved and is no longer short of breath. She has had no cough or wheezing though she has a history of asthma that is seasonal. She denies abdominal pain, heartburn, nausea or vomiting, diarrhea or constipation. She reports no urinary symptoms. She is normally active and was walking her dog early in the evening tonight asymptomatic. Upon arrival to the ER the patient is found to have a rapid heartbeat at 1:20 a.m. 4-180, hypertensive at 189/95, respirations of 20 saturating 98% on room air. A 12 lead EKG is obtained which reveals atrial fibrillation with ventricular rate of 114 with left axis the left anterior fascicular block, no ectopy, ST or T-wave changes. A chest x-ray shows no acute cardiopulmonary pathology. On laboratory analysis she has white count of 6.7, hemoglobin of 15.0 command crit 44.2 and platelets of 238. On chemistry she has potassium 3.8 and a magnesium of 2.2 she has a BUN of 20 and creatinine is 0.7 with a nonfasting glucose of 99. She has a TSH of 3.97. In the ER the patient is given Cardizem 10 mg IV with reduction of heart rate to 96 and upon arrival to the floor the patient has converted to a sinus rhythm. The patient is admitted to medicine service for further evaluation and treatment for new onset atrial fibrillation. Discharge Providers Provider Date of admission: 04/17/19 01:20 Discharge Date: 04/17/19 Primary care physician: Irena Baker PA-C Consults: 04/17/19 02:11 Consult to Dietitian, Adult Routine Comment: Reason For Exam: new onset afib, freq caffeine intake Consult to Discharge Planning Routine Comment: 04/17/19 02:16 Consult to Respiratory Therapy Evaluate & Treat Comment: Mild persistent asthma Physician Instructions: Evaluate and treat Discharge provider: Donna Ford MD Summary Hospital Course Discharge Diagnosis: 1. Paroxsymal Atrial Fibrillation 2. Asthma Hospital Course: Patient was admitted to the hospital with rapid afib. She received one dose of cardizem in the ED and an additional dose of metoprolol with conversion of her afib to sinus rhythm. Her heart rate is 59 today before any medication. The patient has a CHadsvasc score of 2 and qualifies for anticoagulation. The patient was discharged on xeralto with a plan for outpatient Cardiac Event monitoring. Patient has no complaints today and is deemed appropriate for discharge home. Patient had an echo obtained before discharge, the results of which are still pending. Status at Discharge Cognitive/behavioral status at discharge: oriented Functional status at discharge: independent ambulation Overall status at discharge: patient is back to baseline Time Spent with Patient Time spent: Less than 30 minutes Time spent discussing smoking cessation with patient: 3 to 10 minutes Exam Vital Signs (past 8 hours): - 04/17/19 06:08 04/17/19 07:40 04/17/19 10:00 Temperature 98.1 F Pulse Rate 59 L Respiratory Rate 16 Blood Pressure 118/74 Pulse Oximetry 97 97 98 04/17/19 12:58 Temperature 98.6 F Pulse Rate 59 L Respiratory Rate 16 Blood Pressure 132/71 Pulse Oximetry 98 Oxygen Delivery Method Room Air Oxygen Flow Rate 0 Narrative Exam Narrative: Pleasant female in no acute distress Lungs: Clear to auscultation CV: RRR nl Sl S2 2/6 CHRISTINE Abd; soft/ non tender/ non distended Ext/ no edema Objective Labs Result Diagrams: 04/16/19 22:50 04/17/19 05:33 Labs: Laboratory Results - last 24 hr 04/16/19 04/16/19 04/16/19 22:50 22:50 22:50 WBC 6.7 RBC 4.93 Hgb 15.0 Hct 44.2 MCV 89.7 MCH 30.5 MCHC 34.0 RDW 13.7 Plt Count 283 Neut % (Auto) 43.2 L Lymph % (Auto) 45.2 H [place] % (Auto) 9.4 Eos % (Auto) 1.6 L Baso % (Auto) 0.6 Neut # (Auto) 2900 Lymph # (Auto) 3000 [place] # (Auto) 600 Eos # (Auto) 100 Baso # (Auto) 0 PT INR APTT Sodium 142 Potassium 3.8 Chloride 102 Carbon Dioxide 32 BUN 20 H Creatinine 0.70 Estimated GFR > 60.0 BUN/Creatinine Ratio 28.6 H Glucose 99 Calcium 9.9 Magnesium 2.2 Total Bilirubin 0.3 AST 52 H ALT 47 H Alkaline Phosphatase 117 Total Creatine Kinase 105 Troponin I < 0.012 Total Protein 8.2 Albumin 4.8 Globulin 3.4 Albumin/Globulin Ratio 1.4 Triglycerides Cholesterol LDL Cholesterol, Calc HDL Cholesterol TSH 04/16/19 04/16/19 04/17/19 22:50 22:57 05:33 WBC RBC Hgb Hct MCV MCH MCHC RDW Plt Count Neut % (Auto) Lymph % (Auto) [place] % (Auto) Eos % (Auto) Baso % (Auto) Neut # (Auto) Lymph # (Auto) [place] # (Auto) Eos # (Auto) Baso # (Auto) PT 10.2 INR 0.9 APTT 34 Sodium 141 Potassium 4.4 Chloride 107 Carbon Dioxide 26 BUN 17 Creatinine 0.60 Estimated GFR > 60.0 BUN/Creatinine Ratio 28.3 H Glucose 100 Calcium 8.8 Magnesium Total Bilirubin AST ALT Alkaline Phosphatase Total Creatine Kinase Troponin I Total Protein Albumin Globulin Albumin/Globulin Ratio Triglycerides Cholesterol LDL Cholesterol, Calc HDL Cholesterol TSH 3.97 04/17/19 05:33 WBC RBC Hgb Hct MCV MCH MCHC RDW Plt Count Neut % (Auto) Lymph % (Auto) [place] % (Auto) Eos % (Auto) Baso % (Auto) Neut # (Auto) Lymph # (Auto) [place] # (Auto) Eos # (Auto) Baso # (Auto) PT INR APTT Sodium Potassium Chloride Carbon Dioxide BUN Creatinine Estimated GFR BUN/Creatinine Ratio Glucose Calcium Magnesium Total Bilirubin AST ALT Alkaline Phosphatase Total Creatine Kinase Troponin I Total Protein Albumin Globulin Albumin/Globulin Ratio Triglycerides 144 Cholesterol 213 H LDL Cholesterol, Calc 138 H HDL Cholesterol 46 TSH Discharge Plan Discharge Plan Patient Disposition: Home Discharge comment: outpatient phototypesetting equipment monitor. Please obtain from the Cardiology office in [place] Discharge orders & Medications Prescriptions: New rivaroxaban 20 mg tablet 20 mg PO DAILY Qty: 30 RF: 0 Continued albuterol sulfate [Ventolin HFA] 90 mcg/actuation HFA aerosol inhaler 2 puff INHALATION Q4-6H PRN (Reason: wheezing) Qty: 18 RF: 3 cetirizine 10 MG tablet 10 mg PO QDAYP PRNQty: 0 RF: 0 multivitamin [Multiple Vitamins] 1 EACH tablet 1 tab PO QDAY Qty: 0 RF: 0 Flovent HFA 110 mcg/actuation HFA aerosol inhaler 2 puff INHALATION Q12H PRNRF: 0 Fish Oil 1 cap PO .QDAY RF: 0 Follow up/Referrals: Irena Baker PA-C [Primary Care Provider] - Diet/Activity/Treatments Diet: Low-fat and Low-sodium Activity: as tolerated Discharge Data Primary Care Provider: Irena Baker Attending Provider: Albert Martinez Admit Date/Time: 04/17/19 01:20 Quality VTE Deep Vein Thrombosis/Pulmonary Embolism Present on Admission: No
--- NOTE | 2019-04-17 15:33 | PC.NURSE ---
Discharge note: Discharge instructions given to patient as ordered, discharged home via private vehicle with brother [place]. Discussed importance of F/U with Dr. Canales on 04/18 at 0830 and Event monitor f/u placement. Educated regarding diet, activity/restrictions, home safety, and stroke sx. Verbalized understanding of discharge instructions. Ambulating independently in the room,alert and pleasant. IV removed.
--- NOTE | 2019-04-26 10:01 | PC.NURSE ---
Late entry: NS stop time 04/17 [id number]
== END 2019-04-17 15:51 | disposition home or self-care (01) ==
LOC: ED 04-17 01:07 → AC 04-17 01:20
PROVIDERS: Admitting Provider Nurse Practitioner Adult Health; Emergency Provider Emergency Medicine; PCP Physician Assistant; Visit Provider Nurse Practitioner Adult Health
DX: I48.0 Paroxysmal atrial fibrillation (principal); R07.9 Chest pain, unspecified; J45.909 Unspecified asthma, uncomplicated
CPT/HCPCS: 36415; 71045; 80048; 80053; 80061; 82550; 83735; 84443; 84484; 85025; 85610; 85730; 93005; 93306; 96361; 96372; 96374; 96375; 99284; 99285; G0378; J1650; J2060

== ENCOUNTER → 2019-05-15 06:53 | Outpatient (CLI) | payer MEDICARE, OTHER, SELFPAY ==
[2019-04-17 02:13] VITALS: BMI 28.8
--- NOTE | 2019-05-15 08:16 | PM.TREADMILL ---
Cardiac Stress Test Report Referral & Results Date Patient Seen: 05/15/19 Time Patient Seen: 08:16 Requesting provider: Bill Canales Indication: atrial fibrillation Rest ECG: normal sinus rhythm Procedure Note: Standard Oscar protocol, 6:44, 6.9 METS Very good exercise capacity, KAITLIN -21% Normal hemodynamic response to exercise No chest pain or anginal symptoms Resting ECG sinus rhythm; non specific st changes to exercise; no ectopy Impression: Non conclusive exercise stress test Please note: Actual ECG tracings can be found in the PACS system.
== END ==
PROVIDERS: PCP Internal Medicine; Referring Provider Internal Medicine; Visit Provider Internal Medicine
DX: I48.91 Unspecified atrial fibrillation (principal)
CPT/HCPCS: 93017

== ENCOUNTER → 2020-06-03 12:27 | Outpatient (CLI) | payer MEDICARE, OTHER, SELFPAY ==
[2019-04-17 02:13] VITALS: BMI 28.8
--- NOTE | 2020-06-03 | DI.CT.S_ITS ---
PROCEDURE: CT SINUS SCREEN WO CON INDICATIONS: Chronic pansinusitis TECHNIQUE: Noncontrast 3.0 mm axial images acquired from the frontal sinuses to the mid-sella, with coronal and sagittal reformats. For radiation dose reduction, the following was used: automated exposure control, adjustment of mA and/or kV according to patient size. COMPARISON: A prior sinus CT from 2018 is not available for review at the time of this dictation. FINDINGS: Image quality: Excellent. Maxillary Sinuses: No bony remodeling or destruction. [id number] mucosal thickening is seen within the inferior right maxillary sinus. Ethmoid Air Cells: No bony remodeling or destruction. Sinuses are clear. Sphenoid Sinuses: No bony remodeling or destruction. Sinuses are clear. Frontal Sinuses: No bony remodeling or destruction. Sinuses are clear. Ostiomeatal Complexes: Ostiomeatal complexes are patent, if there constitutionally narrowed. No Kimber cells. Miscellaneous: Visualized intra-orbital contents are normal. 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 No significant nasal septal deviation. Incidental note is made of hyperostosis frontalis. This is not considered to be pathologic in a woman of this age. IMPRESSION: Mild focal right maxillary sinus disease. Constitutionally narrowed ostiomeatal complexes noted. Dictated by: Hang Guzman M.D. on 06/03/2020 at 14:23 Approved by: Hang Guzman M.D. on 06/03/2020 at 14:25
== END ==
PROVIDERS: PCP Internal Medicine; Referring Provider Otolaryngology; Visit Provider Otolaryngology
DX: J32.4 Chronic pansinusitis (principal); J30.9 Allergic rhinitis, unspecified
CPT/HCPCS: 70486

== ENCOUNTER → 2021-05-01 09:55 | Outpatient (CLI) | payer MEDICARE, OTHER, SELFPAY ==
[2019-04-17 02:13] VITALS: BMI 28.8
--- NOTE | 2021-05-01 | DI.RAD.S_ITS ---
PROCEDURE: XR CHEST 2V INDICATIONS: Mild intermittent asthma with (acute) exacerbation TECHNIQUE: 2 views of the chest were acquired. COMPARISON: [facility], CR, XR CHEST 1V, 04/16/2019, 23:50. FINDINGS: Surgical changes and devices: Bilateral shoulder prosthesis noted Lungs and pleura: Lungs are clear. No pleural effusions or pneumothorax. Mediastinum: Mediastinal contours are normal. Heart size is normal. Atherosclerotic vascular calcification noted in the aortic arch. Bones and chest wall: No suspicious bony abnormalities. Soft tissues appear unremarkable. IMPRESSION: No acute cardiopulmonary findings Approved by: Joey May M.D. on 05/01/2021 at 11:43
== END ==
PROVIDERS: PCP Internal Medicine; Referring Provider Physician Assistant; Visit Provider Physician Assistant
DX: J45.21 Mild intermittent asthma with (acute) exacerbation (principal)
CPT/HCPCS: 71046

== ENCOUNTER → 2021-06-11 18:10 | Outpatient (ROUT) | payer MEDICARE, OTHER, SELFPAY ==
[2019-04-17 02:13] VITALS: BMI 28.8
== END ==
PROVIDERS: PCP Internal Medicine; Visit Provider Dermatology
DX: M71.30 Other bursal cyst, unspecified site (principal)
CPT/HCPCS: 87070; 87205

== ENCOUNTER → 2021-08-12 08:33 | Outpatient (CLI) | payer MEDICARE, OTHER, SELFPAY ==
[2019-04-17 02:13] VITALS: BMI 28.8
--- NOTE | 2021-08-12 08:35 | DI.CT.S_ITS ---
PROCEDURE: CT HEAD/BRAIN WO CON INDICATIONS: fall 3wk ago, head trauma, >65 yo TECHNIQUE: Noncontrast 4.5 mm thick angled axial sections acquired from the foramen magnum to the vertex, with coronal and sagittal reformats. For radiation dose reduction, the following was used: automated exposure control, adjustment of mA and/or kV according to patient size. COMPARISON: None. FINDINGS: Image quality: Excellent. CSF spaces: Basal cisterns are patent. No extra-axial fluid collections. The ventricles are symmetric in size and shape. Brain: No intracranial bleeds or masses. There is cerebral volume loss for age, with resultant ventricular and sulcal prominence. There are periventricular and deep white matter chronic small vessel ischemic changes. There is intracranial internal carotid artery atherosclerosis. Skull and face: Calvarium and visualized facial bones appear intact, without suspicious lesions. Incidental note is made of hyperostosis frontalis. This is not considered to be pathologic in a woman of this age. Sinuses: Visualized sinuses and mastoids are clear. IMPRESSION: Negative for hemorrhage. Unremarkable intracranial study for age, with note made of mild brain parenchymal volume loss and chronic small vessel ischemic change. Dictated by: Hang Guzman M.D. on 08/12/2021 at 7:53 Approved by: Hang Guzman M.D. on 08/12/2021 at 7:54
== END ==
PROVIDERS: PCP Internal Medicine; Referring Provider Physician Assistant; Visit Provider Physician Assistant
DX: S09.90XA Unspecified injury of head, initial encounter (principal); W19.XXXA Unspecified fall, initial encounter
CPT/HCPCS: 70450

== ENCOUNTER → 2022-04-27 07:56 | Outpatient (CLI) | payer MEDICARE, OTHER, SELFPAY ==
[2019-04-17 02:13] VITALS: BMI 28.8
[2022-04-27 09:49] LABS: Add Manual Diff / Slide Review NO; Basophils Absolute Auto 0 /uL (0-100); Basophils Percent Auto 0.7 % (0-2); Eosinophils Absolute Auto 100 /uL (0-450); Eosinophils Percent Auto 2.1 % (2-4); Hemoglobin 13.6 g/dL (12.0-16.0); Lymphocytes Absolute Auto 1300 /uL (1100-4500); Lymphocytes Percent Auto 25.2 % (25-40); Mean Corpuscular HGB Conc 33.1 % (30-36); Mean Corpuscular Hemoglobin 29.4 PG (26-34); Mean Corpuscular Volume 88.9 fL (80-100); Monocytes Absolute Auto 400 /uL (0-900); Monocytes Percent Auto 7.5 % (3-14); Neutrophils Absolute Auto 3300 /uL (1500-7000); Neutrophils Percent Auto 64.5 % (50-75); Platelet Count 255 X10^3/uL (150-400); Red Blood Cell Count 4.61 X10^6/uL (4.0-5.2); Red Cell Distribution Width 13.7 % (11.6-14.8); White Blood Cell Count 5.1 X10^3/uL (4.5-11.0)
[2022-04-27 10:39] LABS: Alanine Aminotransferase 21 IU/L (<35); Albumin 4.3 g/dL (3.5-5.0); Albumin Globulin Ratio 1.7 (1.0-2.8); Alkaline Phosphatase 88 U/L (38-126); Aspartate Aminotransferase 23 IU/L (14-36); BUN Creatinine Ratio 21.7 (6-22); Bilirubin Total 0.5 mg/dL (0.2-1.3); Blood Urea Nitrogen 15 mg/dL (7-17); Calcium 9.2 mg/dL (8.4-10.2); Carbon Dioxide 28 mmol/L (22-32); Chloride 102 mmol/L (98-107); Cholesterol 258 mg/dL (140-199); Estimated Glomerular Filt Rate > 60 mL/min (>60); Globulin 2.5 g/dL (1.7-4.1); Glucose 94 mg/dL (80-110); HDL Cholesterol 66 mg/dL (40-60); HEMOLYSIS < 15 (0-50); LDL Cholesterol Calculated 159 mg/dL (<100); Potassium 4.3 mmol/L (3.4-5.1); Sodium 138 mmol/L (137-145); Total Protein 6.8 g/dL (6.3-8.2); Triglycerides 163 mg/dL (35-150)
[2022-04-27 10:53] LABS: Vitamin D 25 Hydroxy (D3) 46.3 ng/mL (30.0-100.0)
[2022-04-27 11:07] LABS: TSH w/ Reflex to FT4 0.81 uIU/mL (0.47-4.68)
[2022-04-27 11:22] LABS: Vitamin B12 387 pg/mL (239-931)
[2022-04-27 11:50] LABS: Folate > 20.0 ng/mL (2.76-20.0)
== END ==
PROVIDERS: PCP Family Medicine; Referring Provider Family Medicine; Visit Provider Family Medicine
DX: J45.909 Unspecified asthma, uncomplicated (principal); E78.2 Mixed hyperlipidemia; Z79.899 Other long term (current) drug therapy; Z13.29 Encounter for screening for other suspected endocrine disorder
CPT/HCPCS: 36415; 80053; 80061; 82306; 82607; 82746; 84443; 85025

== ENCOUNTER 2022-11-23 07:54 | Emergency (ER) | payer MEDICARE, OTHER, SELFPAY ==
[2019-04-17 02:13] VITALS: BMI 28.8
[2022-11-23 08:31] VITALS: BP 165/72; PULSE 68; RESP 18; TEMP 36.9; O2SAT 100; BMI 25.4
--- NOTE | 2022-11-23 08:54 | ED.EXTPRO ---
HPI - Extremity Problem General Chief complaint: Extremity Problem,Nontraumatic Stated complaint: poss blood clot/RT calf muscle Time Seen by Provider: 11/23/22 08:36 Source: patient Mode of arrival: Family Vehicle History of Present Illness HPI Narrative: Patient is a 77-year-old female. Is approximately 2-3 weeks status post right total hip replacement. She states that she has been increasing her activity at home. Over the past day or so she has had increased discomfort in her right upper outside hip and also behind her right knee. No swelling. No chest pain. No shortness of breath. She states she did take an extra pain medication last night and the pain did improve and she was able to sleep. She tried to contact her orthopedic surgeon at the end of last week but has not heard anything back from them. Related Data Home Medications Medication Instructions Recorded Confirmed cetirizine 10 mg tablet 10 mg PO QDAYP PRN ##0 06/03/16 07/06/18 multivitamin (Multiple Vitamins 1 tab PO QDAY ##0 12/16/16 04/17/19 tablet) Fish Oil 1 cap PO .QDAY 07/06/18 04/17/19 fluticasone propionate 110 2 puff inhalation Q12H PRN 07/06/18 07/06/18 mcg/actuation HFA aerosol inhaler (Flovent HFA) Previous Rx's Medication Instructions Recorded albuterol sulfate 90 mcg/actuation 2 puff inhalation Q4-6H PRN 08/06/17 aerosol inhaler (Ventolin HFA) wheezing #18 grams rivaroxaban 20 mg tablet 20 mg PO DAILY #30 tabs 04/17/19 Allergies Allergy/AdvReac Type Severity Reaction Status Date / Time cephalexin [From KEFLEX] AdvReac Intermediate rash Verified 11/23/22 08:35 morphine [MORPHINE] AdvReac Intermediate rash Verified 11/23/22 08:35 high dose flu shot Allergy Throat Uncoded 11/23/22 08:35 closing, hoarsness Review of Systems Constitutional Constitutional: Reports system reviewed and no additional complaints, except as documented Gastrointestinal Gastrointestinal: Reports system reviewed and no additional complaints, except as documented Genitourinary Genitourinary: Reports system reviewed and no additional complaints, except as documented Musculoskeletal Musculoskeletal: Reports system reviewed and no additional complaints, except as documented Integumentary/Breasts Skin/Breast: Reports system reviewed and no additional complaints, except as documented Hematologic/Lymphatic On Anticoagulants: No Patient History Medical History (Updated 11/23/22 @ 08:56 by Elie Valles DO) Asthma Family history of cardiovascular disease Mixed hyperlipidemia Seasonal allergic rhinitis due to pollen Surgical History History of ankle surgery History of replacement of both shoulder joints Status post appendectomy Status post knee surgery Family History Father Leukemia Cancer Social History household members: none Smoking Status: Never smoker second hand exposure: No alcohol intake: current substance use type: does not use Smoking Status: Never smoker alcohol intake frequency: 0-2 drinks per day Substance Use Type: does not use Exam Initial Vital Signs Initial Vital Signs: Vital Signs Temperature 98.4 F 11/23/22 08:31 Pulse Rate 68 11/23/22 08:31 Respiratory Rate 18 11/23/22 08:31 Blood Pressure 165/72 H 11/23/22 08:31 Pulse Oximetry 100 11/23/22 08:31 Oxygen Delivery Method Room Air 11/23/22 08:31 HENMT Head: normal to inspection Resp Effort & Inspection: normal respiratory effort Extrem Other: No swelling in the right lower extremity. Some minimal discomfort to the lateral aspect of the right upper hip. No discomfort to the calf muscle. No discomfort along the vessels concerning for DVT. Course Vital Signs Vital signs: Vital Signs - 8 hr 11/23/22 08:31 Temperature 98.4 F Pulse Rate 68 Respiratory Rate 18 Blood Pressure 165/72 H Pulse Oximetry 100 Oxygen Delivery Method Room Air MDM - Extremity (Nontraumatic) MDM Narrative Medical decision making narrative: I have low suspicion based on her clinical presentation today that she has a DVT. She has no swelling. She has no tenderness along the back of the vessels that would be concerning for DVT. She is no chest pain. No shortness of breath. I do suspect that this is activity related. Advised she maybe cut back on her activity for the next day or so. She has pain medication at home that does seem to be working for her when she takes it. Will have her follow all of the postoperative instructions given to her by the orthopedic surgeon. Discharge Plan Departure Patient Disposition: Home Clinical Impression: Pain in right leg Activity Restrictions/Additional Instructions: I have low suspicion based on your presentation today that you have a blood clot in your leg. I do suspect that this is activity related. I do recommend that you follow all of the postoperative instructions given to you by your orthopedic surgeon and keep all of your scheduled medical appointments. Return to the emergency department for new or worsening symptoms. Prescriptions: No Action albuterol sulfate [Ventolin HFA] 90 mcg/actuation HFA aerosol inhaler 2 puff INHALATION Q4-6H PRN (Reason: wheezing) Qty: 18 3RF cetirizine 10 MG tablet 10 mg PO QDAYP PRNQty: 0 multivitamin [Multiple Vitamins] 1 EACH tablet 1 tab PO QDAY Qty: 0 Flovent HFA 110 mcg/actuation HFA aerosol inhaler 2 puff INHALATION Q12H PRN Fish Oil 1 cap PO .QDAY rivaroxaban 20 mg tablet 20 mg PO DAILY Qty: 30 0RF Rx Instructions: must administer with evening meal Referrals: Anahi Card ARNP [Primary Care Provider] - Stand Alone Forms: Patient Portal/API
== END 2022-11-23 09:10 | disposition home or self-care (01) ==
PROVIDERS: Emergency Provider Emergency Medicine; PCP Family Medicine
DX: M79.604 Pain in right leg (principal); Z96.641 Presence of right artificial hip joint
CPT/HCPCS: 99281

== ENCOUNTER 2023-04-02 21:52 | Emergency (ER) | payer MEDICARE, OTHER, SELFPAY ==
[2019-04-17 02:13] VITALS: BMI 28.8
[2023-04-02] VITALS (16 sets, daily range): BP systolic 104–176; BP diastolic 68–124; PULSE 45–136; RESP 16–32; TEMP 36.6; O2SAT 96–99
--- NOTE | 2023-04-02 22:09 | DI.RAD.S_ITS ---
PROCEDURE: XR CHEST 1V INDICATIONS: A FIB RVR TECHNIQUE: One view of the chest was acquired. COMPARISON: [facility], CR, XR CHEST 2V, 05/01/2021, 9:55. [facility], CR, XR CHEST 1V, 04/16/2019, 23:50. FINDINGS: Surgical changes and devices: None. Lungs and pleura: Lungs are clear. No pleural effusions or pneumothorax. Mediastinum: Mediastinal contours appear normal. Heart size is normal. Bones and chest wall: Bilateral shoulder arthroplasties. No suspicious bony lesions. Overlying soft tissues appear unremarkable. IMPRESSION: No acute cardiopulmonary abnormality is seen. Dictated by: Kristina Quinones M.D. on 04/02/2023 at 22:31 Approved by: Kristina Quinones M.D. on 04/02/2023 at 22:32
--- NOTE | 2023-04-02 22:09 | ED.ARRPALP ---
HPI - Arrhythmia/Palpitations General Chief Complaint: Arrhythmia/Palpitations Stated Complaint: chest discomfort afib w/ rvr Time Seen by Provider: 04/02/23 21:53 Source: family and EMS Mode of arrival: EMS History of Present Illness HPI narrative: 77-year-old female presents by EMS from home for chest pressure that began approximately 1 hour prior to arrival. Patient states that yesterday after eating a big meal she felt central chest pressure, but it went away. Today it returned and was accompanied by a fluttering sensation in her chest so she called 911. EMS noted pulse rate varial between 90-140bpm. Patient denies history of heart disease. Currently being treated for a sinus infection by PCP. Related Data Home Medications Medication Instructions Recorded Confirmed cetirizine 10 mg tablet 10 mg PO QDAYP PRN ##0 06/03/16 03/24/23 multivitamin (Multiple Vitamins 1 tab PO QDAY ##0 12/16/16 03/24/23 tablet) Fish Oil 1 cap PO .QDAY 07/06/18 03/24/23 fluticasone propionate 110 2 puff inhalation Q12H PRN 07/06/18 03/24/23 mcg/actuation HFA aerosol inhaler (Flovent HFA) Previous Rx's Medication Instructions Recorded albuterol sulfate 90 mcg/actuation 2 puff inhalation Q4-6H PRN 08/06/17 aerosol inhaler (Ventolin HFA) wheezing #18 grams rivaroxaban 20 mg tablet 20 mg PO DAILY #30 tabs 04/17/19 fluticasone propionate 50 1 spray intranasal DAILY #16 grams 03/24/23 mcg/actuation nasal spray,suspension (Flonase Allergy Relief) apixaban 5 mg tablet (Eliquis) 5 mg PO BID #60 tabs 04/03/23 metoprolol succinate 25 mg 12.5 mg (1/2 x 25 mg) PO BID #60 04/03/23 tablet,extended release 24 hr tabs (Toprol XL) Allergies Allergy/AdvReac Type Severity Reaction Status Date / Time cephalexin [From KEFLEX] AdvReac Intermediate rash Verified 04/02/23 22:42 morphine [MORPHINE] AdvReac Intermediate rash Verified 04/02/23 22:42 high dose flu shot Allergy Throat Uncoded 04/02/23 22:42 closing, hoarsness Review of Systems Review of Systems Narrative: negative except as noted above Patient History Medical History Chronic rhinosinusitis Mixed hyperlipidemia Family history of cardiovascular disease Seasonal allergic rhinitis due to pollen Asthma Surgical History History of ankle surgery History of replacement of both shoulder joints Status post appendectomy Status post knee surgery Family History Father Leukemia Cancer Social History household members: none Smoking Status: Never smoker second hand exposure: No alcohol intake: current substance use type: does not use Smoking Status: Never smoker alcohol intake frequency: 0-2 drinks per day Substance Use Type: does not use Exam Initial Vital Signs Initial Vital Signs: Vital Signs Temperature 97.8 F 04/02/23 21:52 Pulse Rate 136 H 04/02/23 21:52 Respiratory Rate 18 04/02/23 21:52 Blood Pressure 168/86 H 04/02/23 21:52 Pulse Oximetry 98 04/02/23 21:52 Oxygen Delivery Method Room Air 04/02/23 21:52 Const: Awake, alert, no acute distress, nontoxic appearing Cardiac: irregularly irregular, variable between 80-120bpm RESP: unlabored, clear bilaterally, no wheezing GI: Atraumatic, soft, nontender, nondistended, no rebound, no guarding MSK: Atraumatic, full range of motion, pulses equal Skin: Warm, Dry, intact, no rashes Neuro: AO x3, CN II-XII grossly intact, moves all extremities Psych: affect normal, mood normal, not suicidal, not homicidal Course Orders Ordered: ED Orders 04/02/23 21:55 BNP [NT-proBNP (BNP-Adult 18+)] Stat CBC Auto Diff [Complete Blood Count AUTO DIFF] Stat CMP [Comprehensive Metabolic Panel] Stat PT [Prothrombin Time INR] Stat TSH [Thyroid Stimulating Hormone] Stat Troponin & CK Cardiac Panel Stat 04/02/23 22:09 Chest [XR chest 1V] Stat EKG-12 Lead Stat 04/02/23 23:44 EKG-12 Lead Stat 04/03/23 00:25 Trop I [Troponin I] Stat Discontinued Medications Apixaban (Apixaban 5 Mg Tablet) 5 mg PO NOW ONE Stop: 04/03/23 01:37 Last Admin: 04/03/23 01:41 Dose: 5 mg Documented By: CHERYL Sodium Chloride (Normal Saline 0.9%) 1,000 mls @ 1,000 mls/hr IV BOLUS ONE Stop: 04/03/23 00:43 Last Infusion: 04/03/23 01:10 Dose: Infused Documented By: Admin: 04/02/23 23:47 Dose: 1,000 mls/hr Documented By: CHERYL Metoprolol Tartrate (Metoprolol Tartrate 5 Mg/5 Ml Inj) 5 mg IV Q5M SAHIL Stop: 04/02/23 22:26 Last Admin: 04/02/23 22:30 Dose: 5 mg Documented By: Admin: 04/02/23 22:23 Dose: 5 mg Documented By: Admin: 04/02/23 22:16 Dose: 5 mg Documented By: CHERYL Vital Signs Vital signs: Vital Signs - 8 hr 04/02/23 21:52 04/02/23 22:17 04/02/23 22:18 Temperature 97.8 F Pulse Rate 136 H 92 H 96 H Respiratory Rate 18 23 22 Blood Pressure 168/86 H Pulse Oximetry 98 97 98 Oxygen Delivery Method Room Air Room Air Room Air 04/02/23 22:18 04/02/23 22:21 04/02/23 22:21 Temperature Pulse Rate 108 H Respiratory Rate 22 Blood Pressure 176/124 H 155/92 H Pulse Oximetry 96 Oxygen Delivery Method Room Air 04/02/23 22:25 04/02/23 22:25 04/02/23 22:30 Temperature Pulse Rate 103 H 98 H Respiratory Rate 29 H 16 Blood Pressure 141/100 H Pulse Oximetry 97 97 Oxygen Delivery Method 04/02/23 22:30 04/02/23 22:35 04/02/23 22:35 Temperature Pulse Rate 87 Respiratory Rate 19 Blood Pressure 138/102 H 130/108 H Pulse Oximetry 98 Oxygen Delivery Method Room Air 04/02/23 22:40 04/02/23 22:40 04/02/23 22:50 Temperature Pulse Rate 74 Respiratory Rate 32 H Blood Pressure 142/102 H 129/77 Pulse Oximetry 99 Oxygen Delivery Method Room Air 04/02/23 22:50 04/02/23 22:55 04/02/23 22:55 Temperature Pulse Rate 83 76 Respiratory Rate 29 H 18 Blood Pressure 117/86 Pulse Oximetry 98 98 Oxygen Delivery Method Room Air Room Air 04/02/23 23:00 04/02/23 23:01 04/02/23 23:01 Temperature Pulse Rate 80 94 H Respiratory Rate 18 23 Blood Pressure 120/96 H Pulse Oximetry 97 97 Oxygen Delivery Method Room Air 04/02/23 23:06 04/02/23 23:06 04/02/23 23:08 Temperature Pulse Rate 85 104 H Respiratory Rate 20 23 Blood Pressure 109/68 Pulse Oximetry 97 96 Oxygen Delivery Method Room Air Room Air 04/02/23 23:08 04/02/23 23:30 04/02/23 23:33 Temperature Pulse Rate 45 L Respiratory Rate 26 H Blood Pressure 104/69 109/71 Pulse Oximetry 97 Oxygen Delivery Method Room Air 04/02/23 23:33 04/03/23 00:00 04/03/23 00:00 Temperature Pulse Rate 49 L 50 L Respiratory Rate 22 23 Blood Pressure 116/79 Pulse Oximetry 96 99 Oxygen Delivery Method Room Air Room Air 04/03/23 00:24 04/03/23 00:24 04/03/23 00:30 Temperature Pulse Rate 49 L 50 L Respiratory Rate 24 25 H Blood Pressure 118/69 Pulse Oximetry 98 98 Oxygen Delivery Method Room Air Room Air 04/03/23 00:31 04/03/23 00:31 04/03/23 01:00 Temperature Pulse Rate 50 L 54 L Respiratory Rate 21 29 H Blood Pressure 119/67 Pulse Oximetry 98 98 Oxygen Delivery Method Room Air Room Air 04/03/23 01:01 04/03/23 01:01 04/03/23 01:30 Temperature Pulse Rate 53 L 60 Respiratory Rate 24 24 Blood Pressure 100/69 Pulse Oximetry 98 96 Oxygen Delivery Method Room Air Room Air MDM - Arrhythmia/Palpitations Differential Diagnosis Differential diagnosis: Likely palpitations, artial fibrillation and artial flutter Lab Data 04/02/23 21:55 04/02/23 21:55 Labs: Lab Results 04/02/23 04/03/23 Range/Units 21:55 00:25 WBC 7.4 (4.5-11.0) X10^3/uL RBC 5.10 (4.0-5.2) X10^6/uL Hgb 14.1 (12.0-16.0) g/dL Hct 42.9 (36-46) % MCV 84.1 (80-100) fL MCH 27.7 (26-34) PG MCHC 33.0 (30-36) % RDW 17.8 H (11.6-14.8) % Plt Count 333 (150-400) X10^3/uL Neut % (Auto) 56.5 (50-75) % Lymph % (Auto) 31.8 (25-40) % [place] % (Auto) 8.2 (3-14) % Eos % (Auto) 2.3 (2-4) % Baso % (Auto) 1.2 (0-2) % Neut # (Auto) 4200 (7946-5450) /uL Lymph # (Auto) 2400 (2121-3453) /uL [place] # (Auto) 600 (0-900) /uL Eos # (Auto) 200 (0-450) /uL Baso # (Auto) 100 (0-100) /uL PT 10.5 (9.4-12.5) SECONDS INR 0.9 (0.9-1.3) Sodium 138 (137-145) mmol/L Potassium 4.2 (3.4-5.1) mmol/L Chloride 99 (98-107) mmol/L Carbon Dioxide 30 (22-32) mmol/L BUN 16 (7-17) mg/dL Creatinine 0.76 (0.52-1.04) mg/dL Estimated GFR > 60 (>60) mL/min BUN/Creatinine Ratio 21.1 (6-22) Glucose 112 H (80-110) mg/dL Calcium 10.5 H (8.4-10.2) mg/dL Total Bilirubin 0.5 (0.2-1.3) mg/dL AST 30 (14-36) IU/L ALT 21 (<35) IU/L Alkaline Phosphatase 76 (38-126) U/L Total Creatine Kinase 109 (30-135) U/L Troponin I 0.025 0.019 (0.01-0.034) ng/mL NT-Pro-B Natriuret Pep 357 (<450) pg/mL Total Protein 7.5 (6.3-8.2) g/dL Albumin 4.4 (3.5-5.0) g/dL Globulin 3.1 (1.7-4.1) g/dL Albumin/Globulin Ratio 1.4 (1.0-2.8) TSH 1.04 (0.47-4.68) uIU/mL ECG Data Interpretation: EKG 1 -atrial fibrillation, 98 beats per minute, no ST T wave changes, no STEMI EKG 2 -sinus bradycardia, rate 48 beats per minute, no ST T wave changes, no STEMI MDM Narrative Medical decision making narrative: Patient presenting for chest pain and irregular heartbeat, found to be in atrial fibrillation with variable ventricular response. Patient denies history of atrial fibrillation or heart problems, however record review shows that in April of 2019 patient presented to the ER for shortness of breath and was found to be in AFib with RVR. She was actually admitted to the hospital for this and subsequently discharged with Xarelto prescription. Patient does have repetitive speaking pattern and details the same story multiple times throughout our interview, I question if patient has beginnings of dementia Patient received IV metoprolol with conversion to sinus bradycardia. Laboratory work is reviewed, WBCs 7.4, hemoglobin 14.1, potassium 4.2, creatinine 0.6. Initial troponin 0.025, recheck 0.019. Patient reports feeling improved after converting to sinus rhythm. Patient's chads 2 Vasc score for based on age, female gender, hypertension. She consents to Eliquis use and initial dose provided in the emergency department. Patient will be discharged on low-dose metoprolol and Eliquis. She has an appointment with her primary care physician on 04/07 and will discuss results of ER visit at that time. Discharge Plan Departure Patient Disposition: Home Clinical Impression: Atrial fibrillation Instructions: DI for Atrial Fibrillation Prescriptions: New metoprolol succinate [Toprol XL] 25 mg tablet extended release 24 hr 12.5 mg PO BID Qty: 60 0RF Eliquis 5 mg tablet 5 mg PO BID Qty: 60 0RF No Action fluticasone propionate [Flonase Allergy Relief] 50 mcg/actuation spray,suspension 1 spray intranasal DAILY Qty: 16 0RF Rx Instructions: administer into each nostril albuterol sulfate [Ventolin HFA] 90 mcg/actuation HFA aerosol inhaler 2 puff INHALATION Q4-6H PRN (Reason: wheezing) Qty: 18 3RF cetirizine 10 MG tablet 10 mg PO QDAYP PRNQty: 0 multivitamin [Multiple Vitamins] 1 EACH tablet 1 tab PO QDAY Qty: 0 Flovent HFA 110 mcg/actuation HFA aerosol inhaler 2 puff INHALATION Q12H PRN Fish Oil 1 cap PO .QDAY rivaroxaban 20 mg tablet 20 mg PO DAILY Qty: 30 0RF Rx Instructions: must administer with evening meal Referrals: Rocio Thomas MD [Primary Care Provider] - Stand Alone Forms: Patient Portal/API
[2023-04-02 22:16] LABS: Add Manual Diff / Slide Review NO; Basophils Absolute Auto 100 /uL (0-100); Basophils Percent Auto 1.2 % (0-2); Eosinophils Absolute Auto 200 /uL (0-450); Eosinophils Percent Auto 2.3 % (2-4); Hematocrit 42.9 % (36-46); Hemoglobin 14.1 g/dL (12.0-16.0); INR 0.9 (0.9-1.3); Lymphocytes Absolute Auto 2400 /uL (1100-4500); Lymphocytes Percent Auto 31.8 % (25-40); Mean Corpuscular Hemoglobin 27.7 PG (26-34); Mean Corpuscular Volume 84.1 fL (80-100); Monocytes Absolute Auto 600 /uL (0-900); Monocytes Percent Auto 8.2 % (3-14); Neutrophils Absolute Auto 4200 /uL (1500-7000); Neutrophils Percent Auto 56.5 % (50-75); Platelet Count 333 X10^3/uL (150-400); Prothrombin Time 10.5 SECONDS (9.4-12.5); Red Cell Distribution Width 17.8 % (11.6-14.8); White Blood Cell Count 7.4 X10^3/uL (4.5-11.0)
[2023-04-02] MEDS: METOPROLOL TARTRATE 5 MG/5 ML INJ IV ×3 (22:16→22:30)
[2023-04-02 22:18] LABS: Chloride 99 mmol/L (98-107); HEMOLYSIS 17 (0-50)
[2023-04-02 22:21] LABS: Alanine Aminotransferase 21 IU/L (<35); Albumin 4.4 g/dL (3.5-5.0); Albumin Globulin Ratio 1.4 (1.0-2.8); BUN Creatinine Ratio 21.1 (6-22); Bilirubin Total 0.5 mg/dL (0.2-1.3); Blood Urea Nitrogen 16 mg/dL (7-17); Calcium 10.5 mg/dL (8.4-10.2); Carbon Dioxide 30 mmol/L (22-32); Creatine Kinase 109 U/L (30-135); Estimated Glomerular Filt Rate > 60 mL/min (>60); Globulin 3.1 g/dL (1.7-4.1); Potassium 4.2 mmol/L (3.4-5.1); Sodium 138 mmol/L (137-145); Total Protein 7.5 g/dL (6.3-8.2)
[2023-04-02 22:22] LABS: Alkaline Phosphatase 76 U/L (38-126); Aspartate Aminotransferase 30 IU/L (14-36); Glucose 112 mg/dL (80-110)
[2023-04-02 22:32] LABS: NT-proBNP (BNP-Adult 18+) 357 pg/mL (<450); Troponin I 0.025 ng/mL (0.01-0.034)
[2023-04-02 23:21] LABS: Thyroid Stimulating Hormone 1.04 uIU/mL (0.47-4.68)
[2023-04-02] MEDS: SODIUM CHLORIDE 0.9% 1,000 ML 1000 ML IV (23:47)
[2023-04-03] VITALS (7 sets, daily range): BP systolic 100–119; BP diastolic 67–79; PULSE 49–60; RESP 21–29; O2SAT 96–99
[2023-04-03 01:35] LABS: Troponin I 0.019 ng/mL (0.01-0.034)
[2023-04-03] MEDS: APIXABAN 5 MG TABLET PO (01:41)
== END 2023-04-03 01:53 | disposition home or self-care (01) ==
PROVIDERS: Emergency Provider Emergency Medicine; PCP Family Medicine
DX: I48.91 Unspecified atrial fibrillation (principal); Z79.01 Long term (current) use of anticoagulants
CPT/HCPCS: 36415; 71045; 80053; 82550; 83880; 84443; 84484; 85025; 85610; 93005; 96361; 96374; 99284

== ENCOUNTER 2023-04-15 05:42 | Emergency (ER) | payer MEDICARE, OTHER, SELFPAY ==
[2019-04-17 02:13] VITALS: BMI 28.8
[2023-04-15 05:51] VITALS: PULSE 52; RESP 23; O2SAT 98
--- NOTE | 2023-04-15 05:51 | DI.RAD.S_ITS ---
PROCEDURE: XR CHEST 1V INDICATIONS: chest pain TECHNIQUE: One view of the chest was acquired. COMPARISON: [facility], CR, XR CHEST 1V, 04/02/2023, 22:09. [facility], CR, XR CHEST 2V, 05/01/2021, 9:55. FINDINGS: Surgical changes and devices: Bilateral shoulder arthroplasties are present. Lungs and pleura: Lungs are clear. No pleural effusions or pneumothorax. Mediastinum: Mediastinal contours appear normal. Heart size is normal. Bones and chest wall: No suspicious bony lesions. Overlying soft tissues appear unremarkable. IMPRESSION: No acute cardiopulmonary abnormality is seen. There is no significant discrepancy when compared to the overnight preliminary report. Approved by: Adrián Jeter M.D. on 04/15/2023 at 8:05
[2023-04-15 05:57] VITALS: BP 193/86; PULSE 49; RESP 22; TEMP 36.1; O2SAT 99; BMI 25.2
[2023-04-15 06:00] VITALS: BP 179/113; PULSE 49; RESP 28; O2SAT 98
[2023-04-15 06:11] LABS: Add Manual Diff / Slide Review NO; Basophils Absolute Auto 0 /uL (0-100); Basophils Percent Auto 0.8 % (0-2); Eosinophils Absolute Auto 200 /uL (0-450); Hematocrit 37.5 % (36-46); Hemoglobin 12.3 g/dL (12.0-16.0); Lymphocytes Absolute Auto 1600 /uL (1100-4500); Lymphocytes Percent Auto 27.5 % (25-40); Mean Corpuscular HGB Conc 32.9 % (30-36); Mean Corpuscular Hemoglobin 27.9 PG (26-34); Mean Corpuscular Volume 84.9 fL (80-100); Monocytes Absolute Auto 500 /uL (0-900); Monocytes Percent Auto 9.4 % (3-14); Neutrophils Absolute Auto 3300 /uL (1500-7000); Neutrophils Percent Auto 59.3 % (50-75); Platelet Count 218 X10^3/uL (150-400); Red Blood Cell Count 4.41 X10^6/uL (4.0-5.2); Red Cell Distribution Width 17.2 % (11.6-14.8); White Blood Cell Count 5.6 X10^3/uL (4.5-11.0)
--- NOTE | 2023-04-15 06:11 | ED.CHESTPAIN ---
HPI - Chest Pain General Chief Complaint: Chest Pain Stated Complaint: sharp pain in chest Time Seen by Provider: 04/15/23 05:48 Source: patient Mode of arrival: Ambulatory Limitations: no limitations History of Present Illness HPI narrative: Patient is a 77-year-old female. Recent new diagnosis of atrial fibrillation. Not currently in atrial fibrillation. Is on Eliquis and also metoprolol. Has seen her primary doctor several times over the past couple days for several different reasons to include medication management and other medical issues. She was scheduled to have a stress test today at 0730 hours and also a ZIO patch. She states that she was also diagnosed with reflux disease just recently. Was started on Prilosec. States she took a dose last evening. She seems to have issues taking this medication and she thinks that maybe it is making her symptoms worse. She woke up this morning with sharp retrosternal chest discomfort. No shortness a breath. Not worse with palpation or movement. She took some Pepto-Bismol. That seems to have resolved her symptoms. She was currently asymptomatic. She has not taken her daily medications today. Related Data Home Medications Medication Instructions Recorded Confirmed cetirizine 10 mg tablet 10 mg PO QDAYP PRN ##0 06/03/16 04/14/23 multivitamin (Multiple Vitamins 1 tab PO QDAY ##0 12/16/16 04/14/23 tablet) Fish Oil 1 cap PO .QDAY 07/06/18 04/14/23 Previous Rx's Medication Instructions Recorded albuterol sulfate 90 mcg/actuation 2 puff inhalation Q4-6H PRN 08/06/17 aerosol inhaler (Ventolin HFA) wheezing #18 grams fluticasone propionate 50 1 spray intranasal DAILY #16 grams 03/24/23 mcg/actuation nasal spray,suspension (Flonase Allergy Relief) apixaban 5 mg tablet (Eliquis) 5 mg PO BID #60 tabs 04/03/23 metoprolol succinate 25 mg 12.5 mg (1/2 x 25 mg) PO BID #60 04/03/23 tablet,extended release 24 hr tabs (Toprol XL) famotidine 20 mg tablet (Pepcid) 20 mg PO DAILY #30 tabs 04/12/23 fluticasone propionate 110 2 puff inhalation Q12H #12 grams 04/12/23 mcg/actuation HFA aerosol inhaler (Flovent HFA) Allergies Allergy/AdvReac Type Severity Reaction Status Date / Time cephalexin [From KEFLEX] AdvReac Intermediate rash Verified 04/12/23 10:47 morphine [MORPHINE] AdvReac Intermediate rash Verified 04/12/23 10:47 high dose flu shot Allergy Throat Uncoded 04/12/23 10:47 closing, hoarsness Review of Systems Constitutional Constitutional: Reports system reviewed and no additional complaints, except as documented Cardiovascular Cardiovascular: Reports system reviewed and no additional complaints, except as documented Respiratory Respiratory: Reports system reviewed and no additional complaints, except as documented Gastrointestinal Gastrointestinal: Reports system reviewed and no additional complaints, except as documented Hematologic/Lymphatic On Anticoagulants: No Patient History Medical History Heartburn Asthma Chronic rhinosinusitis Mixed hyperlipidemia Family history of cardiovascular disease Seasonal allergic rhinitis due to pollen Surgical History History of ankle surgery History of replacement of both shoulder joints Status post appendectomy Status post knee surgery Family History Father Leukemia Cancer Social History household members: none Smoking Status: Never smoker second hand exposure: No alcohol intake: current substance use type: does not use Smoking Status: Never smoker alcohol intake frequency: a few times a week Substance Use Type: does not use Exam Initial Vital Signs Initial Vital Signs: Vital Signs Pulse Rate 52 L 04/15/23 05:51 Respiratory Rate 23 04/15/23 05:51 Pulse Oximetry 98 04/15/23 05:51 HENMT Head: normal to inspection and normocephalic Resp Effort & Inspection: normal respiratory effort Auscultation: clear to auscultation bilaterally Cardio Rate: regular rate Rhythm: regular rhythm GI Inspection: normal to inspection Palpation: soft and No tender Skin General: no rashes or lesions noted Neuro General: patient alert, patient awake and moves all extremities Course Orders Ordered: ED Orders 04/15/23 05:51 XR chest 1V Stat EKG-12 Lead Stat 04/15/23 06:03 Complete Blood Count AUTO DIFF Stat Comprehensive Metabolic Panel Stat Lipase Stat Troponin I Stat Vital Signs Vital signs: Vital Signs - 8 hr 04/15/23 05:51 04/15/23 05:57 04/15/23 06:00 Temperature 97 F L Pulse Rate 52 L 49 L Respiratory Rate 23 22 Blood Pressure 193/86 H 179/113 H Pulse Oximetry 98 99 Oxygen Delivery Method Room Air 04/15/23 06:00 04/15/23 06:22 04/15/23 06:22 Temperature Pulse Rate 49 L 48 L Respiratory Rate 28 H 16 Blood Pressure 190/84 H Pulse Oximetry 98 98 Oxygen Delivery Method Room Air 04/15/23 06:30 04/15/23 06:30 Temperature Pulse Rate 48 L Respiratory Rate 16 Blood Pressure 182/91 H Pulse Oximetry 97 Oxygen Delivery Method MDM - Chest Pain Medical Records Data Attestation: I reviewed the patient's medical records. Lab Data 04/15/23 06:03 04/15/23 06:03 Labs: Lab Results 04/15/23 Range/Units 06:03 WBC 5.6 (4.5-11.0) X10^3/uL RBC 4.41 (4.0-5.2) X10^6/uL Hgb 12.3 (12.0-16.0) g/dL Hct 37.5 (36-46) % MCV 84.9 (80-100) fL MCH 27.9 (26-34) PG MCHC 32.9 (30-36) % RDW 17.2 H (11.6-14.8) % Plt Count 218 (150-400) X10^3/uL Neut % (Auto) 59.3 (50-75) % Lymph % (Auto) 27.5 (25-40) % [place] % (Auto) 9.4 (3-14) % Eos % (Auto) 3.0 (2-4) % Baso % (Auto) 0.8 (0-2) % Neut # (Auto) 3300 (4927-4448) /uL Lymph # (Auto) 1600 (6360-1927) /uL [place] # (Auto) 500 (0-900) /uL Eos # (Auto) 200 (0-450) /uL Baso # (Auto) 0 (0-100) /uL Sodium 137 (137-145) mmol/L Potassium 4.0 (3.4-5.1) mmol/L Chloride 104 (98-107) mmol/L Carbon Dioxide 26 (22-32) mmol/L BUN 14 (7-17) mg/dL Creatinine 0.74 (0.52-1.04) mg/dL Estimated GFR > 60 (>60) mL/min BUN/Creatinine Ratio 18.9 (6-22) Glucose 106 (80-110) mg/dL Calcium 8.9 (8.4-10.2) mg/dL Total Bilirubin 0.6 (0.2-1.3) mg/dL AST 42 H (14-36) IU/L ALT 41 H (<35) IU/L Alkaline Phosphatase 88 (38-126) U/L Troponin I < 0.012 (0.01-0.034) ng/mL Total Protein 6.8 (6.3-8.2) g/dL Albumin 4.1 (3.5-5.0) g/dL Globulin 2.7 (1.7-4.1) g/dL Albumin/Globulin Ratio 1.5 (1.0-2.8) Lipase 103 (23-300) U/L ECG Data Attestation: I personally reviewed and interpreted this ECG as follows: Interpretation: Sinus bradycardia Ventricular rate of 48 Normal axis Normal QRS Normal QTC No ST T wave changes MDM Narrative Medical decision making narrative: Patient is now asymptomatic and has been asymptomatic since arrival here in the ER. She is in sinus rhythm. Her symptoms resolved after taking the Pepto-Bismol. I do suspect that this was GI related. She has an appointment to have a stress test done in approximately 45 minutes. Troponin was negative. Labs unremarkable. Nonischemic EKG. Will discharge patient so that she can follow-up with her outpatient stress test. Discharge Plan Departure Patient Disposition: Home Clinical Impression: Atypical chest pain Instructions: DI for Atypical Chest Pain Activity Restrictions/Additional Instructions: Recommend that you continue to take all of your medications as directed. I also recommend that you keep your scheduled medical appointments that you have later this morning. Contact your primary care doctor for follow-up. Return to the emergency department for new symptoms. Prescriptions: No Action fluticasone propionate [Flonase Allergy Relief] 50 mcg/actuation spray,suspension 1 spray intranasal DAILY Qty: 16 0RF Rx Instructions: administer into each nostril famotidine [Pepcid] 20 mg tablet 20 mg PO DAILY Qty: 30 2RF Flovent HFA 110 mcg/actuation HFA aerosol inhaler 2 puff INHALATION Q12H Qty: 12 2RF albuterol sulfate [Ventolin HFA] 90 mcg/actuation HFA aerosol inhaler 2 puff INHALATION Q4-6H PRN (Reason: wheezing) Qty: 18 3RF cetirizine 10 MG tablet 10 mg PO QDAYP PRNQty: 0 multivitamin [Multiple Vitamins] 1 EACH tablet 1 tab PO QDAY Qty: 0 Fish Oil 1 cap PO .QDAY metoprolol succinate [Toprol XL] 25 mg tablet extended release 24 hr 12.5 mg PO BID Qty: 60 0RF Eliquis 5 mg tablet 5 mg PO BID Qty: 60 0RF Referrals: Rocio Thomas MD [Primary Care Provider] - Stand Alone Forms: Patient Portal/API
[2023-04-15 06:22] VITALS: BP 190/84; PULSE 48; RESP 16; O2SAT 98
[2023-04-15 06:28] LABS: Alanine Aminotransferase 41 IU/L (<35); Albumin 4.1 g/dL (3.5-5.0); Albumin Globulin Ratio 1.5 (1.0-2.8); Alkaline Phosphatase 88 U/L (38-126); Aspartate Aminotransferase 42 IU/L (14-36); BUN Creatinine Ratio 18.9 (6-22); Bilirubin Total 0.6 mg/dL (0.2-1.3); Blood Urea Nitrogen 14 mg/dL (7-17); Calcium 8.9 mg/dL (8.4-10.2); Carbon Dioxide 26 mmol/L (22-32); Chloride 104 mmol/L (98-107); Estimated Glomerular Filt Rate > 60 mL/min (>60); Globulin 2.7 g/dL (1.7-4.1); Glucose 106 mg/dL (80-110); HEMOLYSIS 22 (0-50); Lipase 103 U/L (23-300); Sodium 137 mmol/L (137-145); Total Protein 6.8 g/dL (6.3-8.2)
[2023-04-15 06:30] VITALS: BP 182/91; PULSE 48; RESP 16; O2SAT 97
[2023-04-15 06:39] LABS: Troponin I < 0.012 ng/mL (0.01-0.034)
== END 2023-04-15 07:03 | disposition home or self-care (01) ==
PROVIDERS: Emergency Provider Emergency Medicine; PCP Family Medicine
DX: R07.89 Other chest pain (principal); Z79.01 Long term (current) use of anticoagulants; I48.91 Unspecified atrial fibrillation; I48.92 Unspecified atrial flutter
CPT/HCPCS: 36415; 71045; 80053; 83690; 84484; 85025; 93005; 93010; 93246; 99284

== ENCOUNTER → 2023-04-15 07:48 | Outpatient (CLI) | payer MEDICARE, OTHER, SELFPAY ==
[2019-04-17 02:13] VITALS: BMI 28.8
== END ==
LOC: CAR 07:49
PROVIDERS: PCP Family Medicine; Referring Provider Family Medicine; Visit Provider Family Medicine
DX: I48.91 Unspecified atrial fibrillation (principal); I48.92 Unspecified atrial flutter
CPT/HCPCS: 93246

== ENCOUNTER → 2023-05-18 09:36 | Outpatient (CLI) | payer MEDICARE, OTHER, SELFPAY ==
[2019-04-17 02:13] VITALS: BMI 28.8
--- NOTE | 2023-05-18 09:37 | DI.ECHO.S_ITS ---
[facility] +---------+ [facility] +---------+ : : [address] : : : : [id number] : : : : Phone: [phone] Echocardiogram Report + + :Name: YOLIS US Study Date: 05/18/2023 Height: 64 in : :[facility] ReadingLocation: Weight: 148 lb : : Gender: Female BSA: 1.7 m2 : :: 1945 Age: 77 yrs BP: 142/80 mmHg: :Reason For Study: Chest pain : :Ordering Physician: JESSIKA, : :ALEXANDRA Alejo Performed By: Niraj Hicks : :Referring: ALEXANDRA ROSEN : + + Interpretation Summary The ejection fraction is estimated to be 60-65%. Grade II diastolic dysfunction. The left atrium is mildly dilated. The right ventricle is normal in size and function. There is mild mitral regurgitation. There is mild to moderate aortic regurgitation. There is mild tricuspid regurgitation. Pulmonary artery pressures cannot be estimated because of the lack of a measurable TR jet velocity but the IVC suggests a CVP of around 3 mmHg. The aortic arch is mildly enlarged. Compared to the prior study dated 04/17/2019, there is a slight increased the aortic regurgitation. Procedure: A two-dimensional transthoracic echocardiogram with color flow and Doppler was performed. The study quality was technically adequate. Comparison is made with the echocardiogram of 04/17/2019. The patient was in normal sinus rhythm during the exam. The heart rate ranged between 52-78 bpm during the study. Left Ventricle: The left ventricle is normal in size and wall thickness. The ejection fraction is estimated to be 60-65%. Diastolic parameters suggest a pseudonormalization pattern, consistent with probable elevated filling pressures. Right Ventricle: The right ventricle is normal in size and function. Atria: The left atrium is mildly dilated. Right atrial size is normal. The interatrial septum grossly appears intact with no obvious evidence for an atrial septal defect. Mitral Valve: The mitral valve is normal. There is no mitral valve stenosis. There is mild mitral regurgitation. Aortic Valve: The aortic valve opens well. There is no aortic valve stenosis. There is mild to moderate aortic regurgitation. Tricuspid Valve: The tricuspid valve is normal in structure and function. There is no tricuspid stenosis. There is mild tricuspid regurgitation. Pulmonary artery pressures cannot be estimated because of the lack of a measurable TR jet velocity but the IVC suggests a CVP of around 3 mmHg. Pulmonic Valve: The pulmonic valve is not well visualized. There is no pulmonic valvular stenosis. There is a trace or physiologic amount of pulmonic regurgitation. Great Vessels: The aortic root is normal size. The dimensions of the ascending aorta are normal. The aortic arch is mildly enlarged. The IVC is of normal diameter and collapses greater than 50% with a sniff. This suggests a low right atrial pressure of 3 mm Hg. Pericardium/ Pleura There is no pericardial effusion. There is no pleural effusion. MMode/2D Measurements & Calculations LVIDd: 4.4 cm LVOT diam: 1.9 cm LVIDs: 2.8 cm Ao root diam: 2.5 cm FS: 35.5 % asc Aorta Diam: 2.4 cm IVSd: 0.92 cm Ao Arch Diam (Prox Trans): 3.3 cm LVPWd: 0.89 cm LV albright. diameter/BSA (cm/m^2): 2.5 LV sys. diameter/BSA (cm/m^2): 1.6 LA A2 area: 19.0 cm2 RA long axis: 4.3 cm LA A4 area: 18.2 cm2 RA area: 13.2 cm2 LA length (vol): 4.9 cm RA vol: 34.7 ml LA vol: 60.0 ml RA : 20.2 ml/m2 LA vol index: 34.9 ml/m2 IVC diam: 1.9 cm RVD1 (basal): 3.1 cm RVD2 (mid): 2.9 cm TAPSE: 2.3 cm Doppler Measurements & Calculations Ao V2 max: 158.0 cm/sec LVOT Max Haris: 111.5 cm/sec Ao V2 mean: 102.6 cm/sec LV V1 max P.0 mmHg Ao max P.0 mmHg LV V1 VTI: 29.1 cm Ao mean P.8 mmHg CORNEL(I,D): 2.6 cm2 Ao V2 VTI: 34.0 cm CORNEL(V,D): 2.1 cm2 sev ratio: 0.86 CORNEL indexed to BSA (cm^2/m^2): 1.5 AI P1/2t: 433.8 msec AI dec slope: 340.8 cm/sec2 MV E max haris: 88.3 cm/sec TR max haris: 242.5 cm/sec MV A max haris: 97.7 cm/sec TR max P.5 mmHg MV E/A: 0.90 PA V2 max: 94.3 cm/sec Med Peak E' Haris: 5.7 cm/sec PA V2 mean: 71.6 cm/sec E/E' med: 15.6 PA mean P.2 mmHg Lat Peak E' Haris: 6.9 cm/sec PA pr(Accel): 17.3 mmHg E/E' lat: 12.8 E/e' average: 14.2 MV dec time: 0.22 sec SV(LVOT): 86.8 ml Reading Physician:09:48 PM
--- NOTE | 2023-05-18 23:39 | DI.NM.S_ITS ---
DATE OF SERVICE: 05/18/2023 PROCEDURE PERFORMED: Exercise treadmill stress and rest myocardial perfusion imaging with gating to assess ejection fraction and regional wall motion. ORDERING PROVIDER: Rianna Burr M.D. INDICATIONS: The patient is a 77-year-old female with recurrent paroxysmal atrial fibrillation. CARDIAC STRESS: The patient was able to exercise for 8 minutes and 2 seconds on a standard Oscar protocol suggesting excellent exercise capacity with an KAITLIN of -50%, achieving 10.1 METS. She had a normal heart rate and blood pressure response to exercise, although maximum heart rate was challenging to assess because of significant artifact at peak exercise but was at least 130 BPM. She had no chest discomfort or other anginal symptoms. Her resting ECG showed sinus rhythm with fairly normal ST segments. With stress, there was significant motion artifact that limited assessment of the ST segments, but there were no obvious ST-segment shifts on the immediate recovery tracings. There were runs of supraventricular ectopy with exercise although the mechanism cannot be discerned because of the motion artifact. In early recovery, she had frequent PACs, at times in a bigeminal pattern, but no sustained arrhythmias. At 6 minutes and 44 seconds of exercise at a heart rate of 122 BPM, 25.1 millicuries of technetium-99m Myoview was injected and she was imaged 15 minutes later using a gated SPECT acquisition protocol. Earlier in the day while at rest, she had been injected with 8.2 millicuries of technetium-99m Myoview and was imaged 15 minutes later, again using a gated SPECT acquisition protocol. FINDINGS: 1. Raw Data. There is fair myocardial tracer uptake with slight breast shadows noted. There is significant subdiaphragmatic tracer activity adjacent to the inferior wall on the resting images that complicates the interpretation. The lung/heart ratio is normal at 0.30 with a normal TID ratio of 1.05. 2. Quantitative gated SPECT: Post-stress ejection fraction is 84% without any focal wall motion abnormality. The end-diastolic volume is normal at 87 mL. The resting images were unable to be gated. 3. Myocardial perfusion imaging: Post-stress supine images show a normal myocardial perfusion pattern without any perfusion defects. Prone imaging was not available. The resting images show a similar perfusion pattern although are somewhat corrupted by the inferolateral subdiaphragmatic tracer activity. IMPRESSION: 1. Normal myocardial perfusion study. 2. No perfusion defects to suggest myocardial ischemia or previous myocardial infarction. 3. Normal left ventricular size and systolic function without focal wall motion abnormality. 4. Excellent exercise capacity without angina or obvious ECG evidence of ischemia. She appears to have significant supraventricular ectopy with exercise although motion artifact prevents definitive assessment of the mechanism. She had frequent PACs in recovery, at times in a bigeminal and trigeminal pattern. Basilio Alicia - LEONARDO/alcides/EVY doc#: [id number]/job#: [id number] dd: 05/18/2023 16:39:00 dt: 05/18/2023 23:16:00 DICTATING MD/COPIES TO: Cholo Portillo MD; Rianna Burr M.D. COPIES MNE: SINAN;
== END ==
PROVIDERS: PCP Family Medicine; Referring Provider Family Medicine; Visit Provider Family Medicine
DX: I08.3 Combined rheumatic disorders of mitral, aortic and tricuspid valves (principal); I48.0 Paroxysmal atrial fibrillation; R07.9 Chest pain, unspecified; I77.89 Other specified disorders of arteries and arterioles
CPT/HCPCS: 78452; 93017; 93306; A9502

== ENCOUNTER 2023-06-03 17:21 | Emergency (ER) | payer MEDICARE, OTHER, SELFPAY ==
[2019-04-17 02:13] VITALS: BMI 28.8
[2023-06-03] VITALS (18 sets, daily range): BP systolic 125–185; BP diastolic 70–118; PULSE 66–123; RESP 12–34; TEMP 36.2; O2SAT 96–98; BMI 26.0
--- NOTE | 2023-06-03 17:44 | DI.RAD.S_ITS ---
PROCEDURE: XR CHEST 1V INDICATIONS: chest pain TECHNIQUE: One view of the chest was acquired. COMPARISON: [facility], CR, XR CHEST 1V, 04/15/2023, 5:53. FINDINGS: Surgical changes and devices: Bilateral shoulder arthroplasties. Lungs and pleura: Lungs are clear. No pleural effusions or pneumothorax. Mediastinum: Mediastinal contours appear normal. Heart size is normal. Bones and chest wall: No suspicious bony lesions. Overlying soft tissues appear unremarkable. IMPRESSION: No acute cardiopulmonary abnormality is seen. Dictated by: Keshia Block M.D. on 06/03/2023 at 19:22 Approved by: Keshia Block M.D. on 06/03/2023 at 19:22
--- NOTE | 2023-06-03 18:16 | ED.SOB ---
HPI - SOB/Dyspnea General Chief Complaint: Shortness of Breath/Dyspnea Stated Complaint: Dx AFIB, SOB Time Seen by Provider: 06/03/23 18:15 History of Present Illness HPI Narrative: Patient comes to the ED today because of a vague sense of heaviness in her chest and fluttering. She knows she has been diagnosed with atrial fibrillation and is currently taking apixaban and is on diltiazem 90 mg extended release twice a. She has no recent illness no cough no severe chest pain no fainting. No nausea vomiting or diarrhea. Recent cardiac workup is reassuring. Related Data Home Medications Medication Instructions Recorded Confirmed cetirizine 10 mg tablet 10 mg PO QDAYP PRN ##0 06/03/16 05/28/23 multivitamin (Multiple Vitamins 1 tab PO QDAY ##0 12/16/16 05/28/23 tablet) Fish Oil 1 cap PO .QDAY 07/06/18 05/28/23 Previous Rx's Medication Instructions Recorded albuterol sulfate 90 mcg/actuation 2 puff inhalation Q4-6H PRN 08/06/17 aerosol inhaler (Ventolin HFA) wheezing #18 grams fluticasone propionate 110 2 puff inhalation Q12H #12 grams 04/12/23 mcg/actuation HFA aerosol inhaler (Flovent HFA) fluticasone propionate 50 1 spray intranasal DAILY #16 grams 05/20/23 mcg/actuation nasal spray,suspension (Flonase Allergy Relief) apixaban 5 mg tablet (Eliquis) 5 mg PO BID #60 tabs 05/26/23 diltiazem HCl 90 mg 90 mg PO BID #30 caps 05/26/23 capsule,extended release 12 hr omeprazole 20 mg capsule,delayed 20 mg PO DAILY #90 caps 05/28/23 release diltiazem HCl 120 mg 120 mg PO BID #60 caps 06/03/23 capsule,extended release 12 hr Allergies Allergy/AdvReac Type Severity Reaction Status Date / Time cephalexin [From KEFLEX] AdvReac Intermediate rash Verified 05/28/23 08:06 morphine [MORPHINE] AdvReac Intermediate rash Verified 05/28/23 08:06 high dose flu shot Allergy Throat Uncoded 05/28/23 08:06 closing, hoarsness Patient History Medical History (Updated 06/03/23 @ 20:09 by Akash Jones MD) Upper back pain Elevated blood pressure reading Heartburn Asthma Chronic rhinosinusitis Mixed hyperlipidemia Family history of cardiovascular disease Seasonal allergic rhinitis due to pollen Surgical History History of ankle surgery History of replacement of both shoulder joints Status post appendectomy Status post knee surgery Family History Father Leukemia Cancer Social History household members: none Smoking Status: Never smoker second hand exposure: No alcohol intake: current substance use type: does not use Smoking Status: Never smoker alcohol intake frequency: a few times a week Substance Use Type: does not use Exam Narrative Exam Narrative: GENERAL: Alert, cooperative and in no distress. HEAD: Atraumatic. Normocephalic. EYES: Sclera are clear without icterus. Extraocular movements are full. ENT: No rhinorrhea. Oropharynx is moist. Mouth exam is benign. NECK: Supple. Full range of motion. CARDIOVASCULAR: Normal rate and rhythm without murmur gallop or rub. RESPIRATORY: Clear to auscultation. Breath sounds equal bilaterally. No wheezes, rales, or rhonchi. GASTROINTESTINAL: Abdomen soft, non-tender, nondistended. EXTREMITIES: No edema, full range of motion. No obvious trauma. BACK: Normal inspection, no CVA tenderness. NEURO: Nonfocal examination, normal speech, normal gait. SKIN: No rash or erythema of visible areas PSYCH: Normally oriented. Normal range of affect. Appropriate behavior Initial Vital Signs Initial Vital Signs: Vital Signs Temperature 97.1 F L 06/03/23 17:31 Pulse Rate 74 06/03/23 17:31 Respiratory Rate 16 06/03/23 17:31 Blood Pressure 125/89 06/03/23 17:31 Pulse Oximetry 98 06/03/23 17:31 Oxygen Delivery Method Room Air 06/03/23 17:31 Course Orders Ordered: ED Orders 06/03/23 17:44 XR chest 1V Stat 06/03/23 17:56 EKG-12 Lead Stat 06/03/23 18:05 Complete Blood Count AUTO DIFF Stat Comprehensive Metabolic Panel Stat Lipase Stat Magnesium Stat PTT Partial Thromboplastin Sánchez Stat Prothrombin Time INR Stat Troponin & CK Cardiac Panel Stat Discontinued Medications Diltiazem HCl (Diltiazem 5 Mg/Ml Sdv) 20 mg IV NOW ONE Stop: 06/03/23 18:32 Last Admin: 06/03/23 18:54 Dose: 20 mg Documented By: ALICJA Vital Signs Vital signs: Vital Signs - 8 hr 06/03/23 17:31 06/03/23 17:59 06/03/23 18:00 Temperature 97.1 F L Pulse Rate 74 114 H Respiratory Rate 16 29 H Blood Pressure 125/89 136/89 Pulse Oximetry 98 Oxygen Delivery Method Room Air 06/03/23 18:00 06/03/23 18:30 06/03/23 18:31 Temperature Pulse Rate 112 H 123 H Respiratory Rate 32 H 32 H Blood Pressure 183/84 H Pulse Oximetry 98 Oxygen Delivery Method Room Air 06/03/23 18:31 06/03/23 18:51 06/03/23 18:51 Temperature Pulse Rate 96 H 106 H Respiratory Rate 21 12 Blood Pressure 185/118 H Pulse Oximetry 97 97 Oxygen Delivery Method Room Air 06/03/23 18:54 06/03/23 19:00 06/03/23 19:00 Temperature Pulse Rate 101 H 93 H Respiratory Rate 20 Blood Pressure 185/118 H 184/99 H Pulse Oximetry 98 Oxygen Delivery Method Room Air 06/03/23 19:04 06/03/23 19:04 06/03/23 19:10 Temperature Pulse Rate 66 Respiratory Rate 26 H Blood Pressure 155/71 H 149/70 H Pulse Oximetry 97 Oxygen Delivery Method 06/03/23 19:10 06/03/23 19:20 06/03/23 19:20 Temperature Pulse Rate 80 77 Respiratory Rate Blood Pressure 154/79 H Pulse Oximetry 97 98 Oxygen Delivery Method Room Air 06/03/23 19:30 06/03/23 19:30 06/03/23 19:41 Temperature Pulse Rate 71 85 Respiratory Rate 19 20 Blood Pressure 150/90 H Pulse Oximetry 97 96 Oxygen Delivery Method 06/03/23 19:41 06/03/23 19:50 06/03/23 19:50 Temperature Pulse Rate 77 Respiratory Rate 23 Blood Pressure 179/100 H 172/81 H Pulse Oximetry 97 Oxygen Delivery Method Room Air MDM - SOB/Dyspnea Lab Data 06/03/23 18:05 06/03/23 18:05 Labs: Lab Results 03/28/24 Range/Units 18:05 WBC 6.5 (4.5-11.0) X10^3/uL RBC 4.56 (4.0-5.2) X10^6/uL Hgb 13.3 (12.0-16.0) g/dL Hct 39.8 (36-46) % MCV 87.3 (80-100) fL MCH 29.1 (26-34) PG MCHC 33.3 (30-36) % RDW 15.3 H (11.6-14.8) % Plt Count 321 (150-400) X10^3/uL Neut % (Auto) 67.4 (50-75) % Lymph % (Auto) 22.6 L (25-40) % [place] % (Auto) 8.0 (3-14) % Eos % (Auto) 1.2 L (2-4) % Baso % (Auto) 0.8 (0-2) % Neut # (Auto) 4400 (7312-5639) /uL Lymph # (Auto) 1500 (5950-7083) /uL [place] # (Auto) 500 (0-900) /uL Eos # (Auto) 100 (0-450) /uL Baso # (Auto) 100 (0-100) /uL PT 12.7 H (9.4-12.5) SECONDS INR 1.1 (0.9-1.3) APTT 38 H (25.1-36.5) SECONDS Sodium 137 (137-145) mmol/L Potassium 4.0 (3.4-5.1) mmol/L Chloride 106 (98-107) mmol/L Carbon Dioxide 26 (22-32) mmol/L BUN 20 H (7-17) mg/dL Creatinine 0.67 (0.52-1.04) mg/dL Estimated GFR > 60 (>60) mL/min BUN/Creatinine Ratio 29.9 H (6-22) Glucose 105 (80-110) mg/dL Calcium 9.5 (8.4-10.2) mg/dL Magnesium 2.3 (1.6-2.3) mg/dL Total Bilirubin 0.3 (0.2-1.3) mg/dL AST 27 (14-36) IU/L ALT 20 (<35) IU/L Alkaline Phosphatase 89 (38-126) U/L Total Creatine Kinase 100 (30-135) U/L Troponin I < 0.012 (0.01-0.034) ng/mL Total Protein 7.2 (6.3-8.2) g/dL Albumin 4.2 (3.5-5.0) g/dL Globulin 3.0 (1.7-4.1) g/dL Albumin/Globulin Ratio 1.4 (1.0-2.8) Lipase 107 (23-300) U/L MDM Narrative Medical decision making narrative: Rate is nicely controlled with medications given to this point. Patient declines cardioversion. Will increase her diltiazem and have her follow-up as an outpatient as her desire. Discharge Plan Departure Patient Disposition: Home Clinical Impression: Atrial fibrillation with rapid ventricular response Activity Restrictions/Additional Instructions: Atrial fibrillation was the cause for her symptoms today. Your rate is now controlled with a higher dose of diltiazem. I recommend 120 mg now of diltiazem long-acting twice daily moving forward. Put the 90 mg tablets away. Follow-up with your doctor in the coming days for further evaluation and treatment. Return to the ED in the meantime if you develop severe chest pain, severe breathlessness at rest, fainting or other severe symptoms. Prescriptions: New diltiazem HCl 120 mg capsule,extended release 12 hr 120 mg PO BID Qty: 60 0RF No Action Flovent HFA 110 mcg/actuation HFA aerosol inhaler 2 puff INHALATION Q12H Qty: 12 2RF fluticasone propionate [Flonase Allergy Relief] 50 mcg/actuation spray,suspension 1 spray intranasal DAILY Qty: 16 0RF Rx Instructions: administer into each nostril albuterol sulfate [Ventolin HFA] 90 mcg/actuation HFA aerosol inhaler 2 puff INHALATION Q4-6H PRN (Reason: wheezing) Qty: 18 3RF omeprazole 20 mg capsule,delayed release(DR/EC) 20 mg PO DAILY Qty: 90 2RF cetirizine 10 MG tablet 10 mg PO QDAYP PRNQty: 0 multivitamin [Multiple Vitamins] 1 EACH tablet 1 tab PO QDAY Qty: 0 diltiazem HCl 90 mg capsule,extended release 12 hr 90 mg PO BID Qty: 30 0RF Eliquis 5 mg tablet 5 mg PO BID Qty: 60 0RF Fish Oil 1 cap PO .QDAY Referrals: Rocio Thomas MD [Primary Care Provider] - Stand Alone Forms: Patient Portal/API
[2023-06-03 18:33] LABS: Add Manual Diff / Slide Review NO; Basophils Absolute Auto 100 /uL (0-100); Basophils Percent Auto 0.8 % (0-2); Eosinophils Absolute Auto 100 /uL (0-450); Eosinophils Percent Auto 1.2 % (2-4); Hematocrit 39.8 % (36-46); Hemoglobin 13.3 g/dL (12.0-16.0); Lymphocytes Absolute Auto 1500 /uL (1100-4500); Lymphocytes Percent Auto 22.6 % (25-40); Mean Corpuscular HGB Conc 33.3 % (30-36); Mean Corpuscular Hemoglobin 29.1 PG (26-34); Mean Corpuscular Volume 87.3 fL (80-100); Monocytes Absolute Auto 500 /uL (0-900); Neutrophils Absolute Auto 4400 /uL (1500-7000); Neutrophils Percent Auto 67.4 % (50-75); Platelet Count 321 X10^3/uL (150-400); Red Blood Cell Count 4.56 X10^6/uL (4.0-5.2); Red Cell Distribution Width 15.3 % (11.6-14.8); White Blood Cell Count 6.5 X10^3/uL (4.5-11.0)
--- NOTE | 2023-06-03 18:35 | PC.NURSE ---
Pt reports feeling heart palpitations, SOB, and feeling anxious around 1100 today. She thought it may be allergies and related to my asthma, and I have been in denial about having afib. She then drove to [facility], reports having a drink with a friend, and drove here later with persistent symptoms. She denies dizziness, lightheaded, chest pain. Pt currently taking diltiazem ER 90mg tablets, 1 tablet twice daily. and is on eliquis 5mg tablet, 1 tablet twice daily.
[2023-06-03 18:39] LABS: INR 1.1 (0.9-1.3); Prothrombin Time 12.7 SECONDS (9.4-12.5)
[2023-06-03 18:42] LABS: PTT Partial Thromboplastin Tim 38 SECONDS (25.1-36.5)
[2023-06-03 18:44] LABS: Alanine Aminotransferase 20 IU/L (<35); Albumin 4.2 g/dL (3.5-5.0); Albumin Globulin Ratio 1.4 (1.0-2.8); Alkaline Phosphatase 89 U/L (38-126); Aspartate Aminotransferase 27 IU/L (14-36); BUN Creatinine Ratio 29.9 (6-22); Bilirubin Total 0.3 mg/dL (0.2-1.3); Blood Urea Nitrogen 20 mg/dL (7-17); Calcium 9.5 mg/dL (8.4-10.2); Carbon Dioxide 26 mmol/L (22-32); Chloride 106 mmol/L (98-107); Creatine Kinase 100 U/L (30-135); Estimated Glomerular Filt Rate > 60 mL/min (>60); Glucose 105 mg/dL (80-110); HEMOLYSIS < 15 (0-50); Lipase 107 U/L (23-300); Magnesium 2.3 mg/dL (1.6-2.3); Sodium 137 mmol/L (137-145); Total Protein 7.2 g/dL (6.3-8.2)
[2023-06-03 18:54] LABS: Troponin I < 0.012 ng/mL (0.01-0.034)
[2023-06-03] MEDS: dilTIAZem 5 MG/ML SDV 20 MG IV (18:54)
== END 2023-06-03 20:17 | disposition home or self-care (01) ==
PROVIDERS: Emergency Medicine; Emergency Provider Family Medicine Addiction Medicine; PCP Family Medicine
DX: I48.20 Chronic atrial fibrillation, unspecified (principal); Z79.01 Long term (current) use of anticoagulants
CPT/HCPCS: 36415; 71045; 80053; 82550; 83690; 83735; 84484; 85025; 85610; 85730; 93005; 96374; 99284

== ENCOUNTER 2023-07-14 09:23 | Emergency (ER) | payer MEDICARE, OTHER, SELFPAY ==
[2019-04-17 02:13] VITALS: BMI 28.8
[2023-07-14] VITALS (15 sets, daily range): BP systolic 175–213; BP diastolic 83–108; PULSE 53–59; RESP 11–37; TEMP 37; O2SAT 96–99
--- NOTE | 2023-07-14 09:50 | DI.RAD.S_ITS ---
PROCEDURE: XR CHEST 1V INDICATIONS: Shortness of breath TECHNIQUE: One view of the chest was acquired. COMPARISON: [facility], CR, XR CHEST 1V, 06/03/2023, 18:06. [facility], CR, XR CHEST 1V, 04/15/2023, 5:53. FINDINGS: Surgical changes and devices: Bilateral shoulder arthroplasties. Lungs and pleura: Lungs are clear. No pleural effusions or pneumothorax. Mediastinum: Mediastinal contours appear normal. Heart size is normal. Bones and chest wall: No suspicious bony lesions. Overlying soft tissues appear unremarkable. IMPRESSION: No acute cardiopulmonary abnormality is seen. Dictated by: Jayesh Lee M.D. on 07/14/2023 at 10:16 Approved by: Jayesh Lee M.D. on 07/14/2023 at 10:16
[2023-07-14 10:00] LABS: INR 1.4 (0.9-1.3); Prothrombin Time 16.4 SECONDS (9.4-12.5)
[2023-07-14 10:05] LABS: Alanine Aminotransferase 25 IU/L (<35); Albumin 4.6 g/dL (3.5-5.0); Albumin Globulin Ratio 1.6 (1.0-2.8); Alkaline Phosphatase 106 U/L (38-126); Aspartate Aminotransferase 30 IU/L (14-36); BUN Creatinine Ratio 27.4 (6-22); Bilirubin Total 0.5 mg/dL (0.2-1.3); Blood Urea Nitrogen 20 mg/dL (7-17); Calcium 9.3 mg/dL (8.4-10.2); Carbon Dioxide 27 mmol/L (22-32); Chloride 106 mmol/L (98-107); Estimated Glomerular Filt Rate > 60 mL/min (>60); Globulin 2.9 g/dL (1.7-4.1); Glucose 109 mg/dL (80-110); HEMOLYSIS 33 (0-50); Lactate (Lactic Acid) 0.9 mmol/L (0.7-2.1); Potassium 4.1 mmol/L (3.4-5.1); Sodium 139 mmol/L (137-145); Total Protein 7.5 g/dL (6.3-8.2)
[2023-07-14 10:06] LABS: Add Manual Diff / Slide Review NO; Basophils Absolute Auto 0 /uL (0-100); Basophils Percent Auto 0.8 % (0-2); Eosinophils Absolute Auto 100 /uL (0-450); Eosinophils Percent Auto 1.5 % (2-4); Hematocrit 39.9 % (36-46); Hemoglobin 13.2 g/dL (12.0-16.0); Lymphocytes Absolute Auto 1100 /uL (1100-4500); Mean Corpuscular HGB Conc 33.1 % (30-36); Mean Corpuscular Hemoglobin 29.3 PG (26-34); Mean Corpuscular Volume 88.3 fL (80-100); Monocytes Absolute Auto 600 /uL (0-900); Monocytes Percent Auto 13.7 % (3-14); Neutrophils Absolute Auto 2500 /uL (1500-7000); Platelet Count 223 X10^3/uL (150-400); Red Blood Cell Count 4.52 X10^6/uL (4.0-5.2); Red Cell Distribution Width 14.3 % (11.6-14.8); White Blood Cell Count 4.3 X10^3/uL (4.5-11.0)
[2023-07-14 10:15] LABS: NT-proBNP (BNP-Adult 18+) 89 pg/mL (<450); Troponin I < 0.012 ng/mL (0.01-0.034)
[2023-07-14 11:21] LABS: Urine Volume 10mL (spun)
[2023-07-14 11:25] LABS: Bacteria Urine None Seen; Culture Indicated Urine Cult Not Indicated; RBC Urine 0-1/HPF (0-5/HPF); Squamous Epithelial Cell Urine 0-1 /HPF (0-5/HPF); WBC Urine None Seen (0-5/HPF)
--- NOTE | 2023-07-14 11:37 | ED_ITS ---
HPI - Asthma General Chief Complaint: Asthma Stated Complaint: asthma Time Seen by Provider: 07/14/23 11:02 Source: patient Mode of arrival: Family Vehicle Limitations: no limitations History of Present Illness HPI Narrative: 78-year-old female with history of atrial fibrillation on Eliquis and diltiazem, asthma comes in with complaint of recent cough that has been worsening over the past 24 hours and had an episode of chest tightness and shortness of breath during episcopal. Patient states she has not had any fevers. She was not having any chest pain or shortness of breath yesterday but has had a nonproductive cough which has changed recently in states is typical when she gets asthma during the spring. She has known seasonal allergies was on Zyrtec D and albuterol but was told to stop using this after she had an episode of atrial fibrillation in April. She was then started on Eliquis and metoprolol but switch still diltiazem. Then her physician told her take fluticasone daily in place of her albuterol. Patient has been playing around with her fluticasone and using it once daily at times but not twice daily. She states symptoms have resolved. She denies nausea or vomiting no diaphoresis no other GI or urinary symptoms. No swelling of extremities. She feels much better and would like to discharge home. Related Data Home Medications Medication Instructions Recorded Confirmed cetirizine 10 mg tablet 10 mg PO QDAYP PRN ##0 06/03/16 06/24/23 multivitamin (Multiple Vitamins 1 tab PO QDAY ##0 12/16/16 06/24/23 tablet) Fish Oil 1 cap PO .QDAY 07/06/18 06/24/23 Previous Rx's Medication Instructions Recorded albuterol sulfate 90 mcg/actuation 2 puff inhalation Q4-6H PRN 08/06/17 aerosol inhaler (Ventolin HFA) wheezing #18 grams fluticasone propionate 50 1 spray intranasal DAILY #16 grams 05/20/23 mcg/actuation nasal spray,suspension (Flonase Allergy Relief) omeprazole 20 mg capsule,delayed 20 mg PO DAILY #90 caps 05/28/23 release diltiazem HCl 120 mg 120 mg PO BID #180 caps 06/10/23 capsule,extended release 12 hr apixaban 5 mg tablet (Eliquis) 5 mg PO BID #60 tabs 06/30/23 fluticasone propionate 110 2 puff inhalation Q12H #12 grams 07/08/23 mcg/actuation HFA aerosol inhaler levalbuterol tartrate 45 2 inh inhalation Q6H PRN shortness 07/14/23 mcg/actuation aerosol inhaler of breath or wheezing #15 grams Allergies Allergy/AdvReac Type Severity Reaction Status Date / Time cephalexin [From KEFLEX] AdvReac Intermediate rash Verified 06/24/23 09:07 morphine [MORPHINE] AdvReac Intermediate rash Verified 06/24/23 09:07 high dose flu shot Allergy Throat Uncoded 06/24/23 09:07 closing, hoarsness Review of Systems Review of Systems ROS Unobtainable: All systems reviewed & are unremarkable except as noted in HPI and below Patient History Medical History Seasonal allergies Upper back pain Elevated blood pressure reading Heartburn Asthma Chronic rhinosinusitis Mixed hyperlipidemia Family history of cardiovascular disease Seasonal allergic rhinitis due to pollen Surgical History History of ankle surgery History of replacement of both shoulder joints Status post appendectomy Status post knee surgery Family History Father Leukemia Cancer Social History household members: none Smoking Status: Never smoker second hand exposure: No alcohol intake: current substance use type: does not use Smoking Status: Never smoker alcohol intake frequency: a few times a week Substance Use Type: does not use Exam Narrative Exam Narrative: GENERAL: Alert and oriented x three, female in no acute distress. Patient was walking back bathroom and into her just prior to examination. HEENT: Head normocephalic, atraumatic, EOMI, pupils reactive, face symmetric, moist mucous membranes NECK: Supple, full range of motion CARDIOVASCULAR: Regular rate and rhythm without murmurs, rubs or gallops. No JVD. No edema bilateral lower extremities. RESPIRATORY: Breath sounds equal bilaterally, no wheezes rales or rhonchi. No tachypnea or accessory muscle use. ABDOMEN: Soft, nontender. Normoactive bowel sounds all 4 quadrants. No guarding or rebound, rigidity, no mass : No CVA tenderness EXTREMITIES: Normal range of motion, no clubbing or edema. Neurovascularly intact NEUROLOGICAL: Cranial nerves II through XII grossly intact. Moving all extremities SKIN: Warm, dry, no petechiae, no rashes or lesions. Initial Vital Signs Initial Vital Signs: Vital Signs Pulse Oximetry 98 07/14/23 09:35 Course Orders Ordered: ED Orders 07/14/23 09:45 Complete Blood Count AUTO DIFF Stat Comprehensive Metabolic Panel Stat Lactate (Lactic Acid) Stat NT-proBNP (BNP-Adult 18+) Stat Prothrombin Time INR Stat Troponin I Stat 07/14/23 09:50 XR chest 1V Stat EKG-12 Lead Stat Measure peak expiratory flow ONCE RT Consult Eval and Treat NOW 07/14/23 11:00 Urine Microscopic Stat 07/14/23 12:18 Trop I [Troponin I] Stat Vital Signs Vital signs: Vital Signs - 8 hr 07/14/23 09:35 07/14/23 09:36 07/14/23 09:36 Temperature Pulse Rate 56 L Respiratory Rate Blood Pressure 213/86 H Pulse Oximetry 98 97 Oxygen Delivery Method 07/14/23 09:43 07/14/23 10:00 07/14/23 10:01 Temperature 98.6 F Pulse Rate 56 L 53 L 55 L Respiratory Rate 14 27 H Blood Pressure 213/86 H Pulse Oximetry 99 98 96 Oxygen Delivery Method Room Air 07/14/23 10:01 07/14/23 10:30 07/14/23 10:55 Temperature Pulse Rate 57 L Respiratory Rate 29 H Blood Pressure 175/105 H 200/88 H Pulse Oximetry Oxygen Delivery Method 07/14/23 10:55 07/14/23 11:00 07/14/23 11:00 Temperature Pulse Rate 56 L 55 L Respiratory Rate 11 L 15 Blood Pressure 206/86 H Pulse Oximetry 99 99 Oxygen Delivery Method 07/14/23 11:12 07/14/23 11:12 07/14/23 11:30 Temperature Pulse Rate 54 L Respiratory Rate 28 H Blood Pressure 175/83 H 201/86 H Pulse Oximetry 98 Oxygen Delivery Method 07/14/23 11:30 07/14/23 12:11 07/14/23 12:13 Temperature Pulse Rate 54 L Respiratory Rate 23 36 H Blood Pressure 202/108 H Pulse Oximetry 97 Oxygen Delivery Method 05/08/24 12:13 Temperature Pulse Rate 59 L Respiratory Rate 37 H Blood Pressure Pulse Oximetry 99 Oxygen Delivery Method MDM - Asthma Lab Data 07/14/23 09:45 07/14/23 09:45 Labs: Lab Results 07/14/23 07/14/23 07/14/23 Range/Units 09:45 11:00 12:18 WBC 4.3 L (4.5-11.0) X10^3/uL RBC 4.52 (4.0-5.2) X10^6/uL Hgb 13.2 (12.0-16.0) g/dL Hct 39.9 (36-46) % MCV 88.3 (80-100) fL MCH 29.3 (26-34) PG MCHC 33.1 (30-36) % RDW 14.3 (11.6-14.8) % Plt Count 223 (150-400) X10^3/uL Neut % (Auto) 59.0 (50-75) % Lymph % (Auto) 25.0 (25-40) % Kaufman % (Auto) 13.7 (3-14) % Eos % (Auto) 1.5 L (2-4) % Baso % (Auto) 0.8 (0-2) % Neut # (Auto) 2500 (8648-0180) /uL Lymph # (Auto) 1100 (7095-5669) /uL Kaufman # (Auto) 600 (0-900) /uL Eos # (Auto) 100 (0-450) /uL Baso # (Auto) 0 (0-100) /uL PT 16.4 H (9.4-12.5) SECONDS INR 1.4 H (0.9-1.3) Sodium 139 (137-145) mmol/L Potassium 4.1 (3.4-5.1) mmol/L Chloride 106 (98-107) mmol/L Carbon Dioxide 27 (22-32) mmol/L BUN 20 H (7-17) mg/dL Creatinine 0.73 (0.52-1.04) mg/dL Estimated GFR > 60 (>60) mL/min BUN/Creatinine Ratio 27.4 H (6-22) Glucose 109 (80-110) mg/dL Lactate 0.9 (0.7-2.1) mmol/L Calcium 9.3 (8.4-10.2) mg/dL Total Bilirubin 0.5 (0.2-1.3) mg/dL AST 30 (14-36) IU/L ALT 25 (<35) IU/L Alkaline Phosphatase 106 (38-126) U/L Troponin I < 0.012 < 0.012 (0.01-0.034) ng/mL NT-Pro-B Natriuret Pep 89 (<450) pg/mL Total Protein 7.5 (6.3-8.2) g/dL Albumin 4.6 (3.5-5.0) g/dL Globulin 2.9 (1.7-4.1) g/dL Albumin/Globulin Ratio 1.6 (1.0-2.8) Urine RBC 0-1/hpf (0-5/HPF) Urine WBC None seen (0-5/HPF) Ur Squamous Epith Cells 0-1 /hpf (0-5/HPF) Urine Bacteria None seen (None) Ur Culture Indicated? Cult not indicated Vol Urine Centrifuged 10ml (spun) Urine Dip Bedside Urine Glucose Negative Bedside Urine Bilirubin - Negative Bedside Urine Ketone - Negative Urine Specific [employer] 1.010 Bedside Urine Occult Blood + Bedside Urine pH 7.5 Bedside Urine Protein - Negative Bedside Urine Urobilinogen - Negative Bedside Urine Nitrite - Negative Bedside Urine Leukocytes - Negative Esterase Imaging Data Chest x-ray: Radiologist's Impression: Close Chest X-Ray (Signed) Jayesh Lee - 07/14/23 Chest X-Ray (Signed) Keshia Block - 06/03/23 Radiology Report (Cancelled) Cholo Portillo - 05/18/23 Myocardial Perfusion Scan Nuc Med (Signed) Cholo Portillo - 05/18/23 Echocardiogram Ultrasound (Signed) Lauren Naylor - 05/18/23 Chest X-Ray (Signed) Adrián Jeter - 04/15/23 Chest X-Ray (Signed) Kristina Quinones - 04/02/[address] (Signed) Hang Guzman - 08/12/21 Chest X-Ray (Signed) Joey May - 05/01/[address] (Signed) Hang Guzman - 06/03/20 Echocardiogram Ultrasound (Signed) Karey Castillo - 04/17/19 Telemetry Strips 04/17/19 Chest X-Ray (Signed) Marina Moran - 04/16/19 Wrist X-Ray (Signed) Adonay Gardner - 07/06/18 Hand X-Ray (Signed) Adonay Gardner - 07/06/18 DI Result CC 05/03/17 DI Result CC 05/03/17 Launch?Image [address] [address] XRay Report Signed Patient: Alicia Richmond MR#: [id number] : 1945 Acct:[id number] Age/Sex: 78 / F Date of Service: 07/14/23 Loc: ED Accession Number: [id number] Procedure: XR chest 1V Ordering Provider: Thania Back D.O. PROCEDURE: XR CHEST 1V INDICATIONS: Shortness of breath TECHNIQUE: One view of the chest was acquired. COMPARISON: [facility], CR, XR CHEST 1V, 06/03/2023, 18:06. [facility], CR, XR CHEST 1V, 04/15/2023, 5:53. FINDINGS: Surgical changes and devices: Bilateral shoulder arthroplasties. Lungs and pleura: Lungs are clear. No pleural effusions or pneumothorax. Mediastinum: Mediastinal contours appear normal. Heart size is normal. Bones and chest wall: No suspicious bony lesions. Overlying soft tissues appear unremarkable. IMPRESSION: No acute cardiopulmonary abnormality is seen. Dictated by: Jayesh Lee M.D. on 07/14/2023 at 10:16 Approved by: Jayesh Lee M.D. on 07/14/2023 at 10:16 ECG Data Attestation: I personally reviewed and interpreted this ECG as follows: Prior ECG tracings: available for review Interpretation: Sinus bradycardia first-degree AV block left anterior fascicular block rate of 51 [place] 218 QRS of 98 QTC of 416. No acute ST elevation depression. Patient has prior from 06/03/2023 which showed atrial fibrillation. Today appears to be sinus Kannan. EKG number sinus bradycardia, left axis deviation, left anterior fascicular block. Rate of 56 [place] 202 QRS of 96 QTC of [address] changes appreciated. MDM Narrative Medical decision making narrative: This is a 78-year-old with history of AFib, seasonal asthma who has been off her typical medications as she used to take Zyrtec D and albuterol and was concerned that would kick off her atrial fibrillation. She states she typically gets issues this year started have increasing cough over the past 24 hours which has a little bit different than normal. No fevers or other infectious symptoms that she is appreciated. She would tightness and pressure in her chest during episcopal earlier today which has resolved. She states she would have use her albuterol but was told not to. Symptoms have since resolved. Labs show white count of 4.3 hemoglobin of 13 platelets of 223. INR is 1.4 sodium is 139 potassium is 4 1 chloride 106 with a CO2 of 27 BUN 20 with a creatinine of 0.73 glucose of 109 LFTs are negative, initial troponin is negative repeat troponin is negative. BNP is 89 Chest x-ray shows no acute change EKG shows sinus bradycardia left axis deviation but does appear to be sinus on repeats with no acute or dynamic ST changes. Discussed with patient plan of follow-up. Discussed she can use plain Zyrtec instead of Zyrtec D this should not interfere with her medications can give a prescription for levoalbuterol or Xopenex. Did discuss if she has having an active asthma flare can try her regular asthma and a true emergency if needed. Discharge Plan Departure Patient Disposition: Home Clinical Impression: Chest pain Activity Restrictions/Additional Instructions: Follow up with primary care for recheck. Continue with your fluticasone daily. You can take Zyrtec (plain) or loratadine [id number] once daily seasonal. A prescription for leave a albuterol or Xopenex was sent. You can use this if needed for asthma exacerbations. It formulated to decrease the risk for tachycardia. Prescription was sent to [facility] in [place]. Please return for recurrent chest pain or shortness of breath, lightheadedness or passing out, fevers, new swelling in your extremities or other new or concerning symptoms. Prescriptions: New levalbuterol tartrate 45 mcg/actuation HFA aerosol inhaler 2 inh inhalation Q6H PRN (Reason: shortness of breath or wheezing) Qty: 15 0RF Rx Instructions: DX Asthma, Atrial fibrillation No Action fluticasone propionate [Flonase Allergy Relief] 50 mcg/actuation spray,suspension 1 spray intranasal DAILY Qty: 16 0RF Rx Instructions: administer into each nostril albuterol sulfate [Ventolin HFA] 90 mcg/actuation HFA aerosol inhaler 2 puff INHALATION Q4-6H PRN (Reason: wheezing) Qty: 18 3RF omeprazole 20 mg capsule,delayed release(DR/EC) 20 mg PO DAILY Qty: 90 2RF cetirizine 10 MG tablet 10 mg PO QDAYP PRNQty: 0 multivitamin [Multiple Vitamins] 1 EACH tablet 1 tab PO QDAY Qty: 0 diltiazem HCl 120 mg capsule,extended release 12 hr 120 mg PO BID Qty: 180 0RF Eliquis 5 mg tablet 5 mg PO BID Qty: 60 2RF fluticasone propionate 110 mcg/actuation HFA aerosol inhaler 2 puff INHALATION Q12H Qty: 12 2RF Fish Oil 1 cap PO .QDAY Referrals: Rocio Thomas MD [Primary Care Provider] - Stand Alone Forms: Patient Portal/API
[2023-07-14 12:50] LABS: Troponin I < 0.012 ng/mL (0.01-0.034)
== END 2023-07-14 13:18 | disposition home or self-care (01) ==
PROVIDERS: Emergency Provider Emergency Medicine; PCP Family Medicine
DX: R07.9 Chest pain, unspecified (principal); R00.1 Bradycardia, unspecified; I44.0 Atrioventricular block, first degree; Z79.01 Long term (current) use of anticoagulants
CPT/HCPCS: 36415; 71045; 80053; 81003; 81015; 83605; 83880; 84484; 85025; 85610; 93005; 93010; 99283; 99284

== ENCOUNTER 2023-12-21 20:20 | Emergency (ER) | payer MEDICARE, OTHER, SELFPAY ==
[2023-11-09 11:03] VITALS: BMI 28.8
[2023-12-21] VITALS (15 sets, daily range): BP systolic 137–209; BP diastolic 77–139; PULSE 83–132; RESP 13–28; TEMP 36.6; O2SAT 95–98; BMI 24.0
--- NOTE | 2023-12-21 20:28 | DI.RAD.S_ITS ---
PROCEDURE: XR CHEST 1V INDICATIONS: chest pain TECHNIQUE: One view of the chest was acquired. COMPARISON: [facility], CR, XR CHEST 1V, 07/14/2023, 9:57. [facility], CR, XR CHEST 1V, 06/03/2023, 18:06. [facility], CR, XR CHEST 1V, 04/15/2023, 5:53. [facility], CR, XR CHEST 1V, 04/16/2019, 23:50. FINDINGS: Surgical changes and devices: None. Lungs and pleura: Lungs are clear. No pleural effusions or pneumothorax. Mediastinum: Aortic arch calcifications. Mediastinal contours appear normal. Heart size is normal. Bones and chest wall: No suspicious bony lesions. Overlying soft tissues appear unremarkable. Partially identified right shoulder arthroplasty. IMPRESSION: No acute cardiothoracic process. Dictated by: Alfredo Candelario M.D. on 12/21/2023 at 21:31 Approved by: Alfredo Candelario M.D. on 12/21/2023 at 21:32
--- NOTE | 2023-12-21 20:33 | EKG_ITS ---
[address] [address] Test Date: 2023-12-21 Pat Name: Alicia Richmond Department: Room: Gender: Female Day Care Worker: SAVANAH : 1945 Requested By: Order Number: [id number] Reading MD: Albert Deleon Measurements Intervals [place] Rate: 104 P: 72 DE: 198 QRS: -58 QRSD: 94 T: 59 QT: 328 QTc: 431 Interpretive Statements Sinus tachycardia with premature supraventricular complexes Incomplete right bundle branch block Left anterior fascicular block Minimal voltage criteria for LVH, may be normal variant ( [place] product ) Electronically Signed On 12-22-2023 18:09:52 PDT by Albert Deleon
[2023-12-21 20:47] LABS: Add Manual Diff / Slide Review NO; Basophils Absolute Auto 0 /uL (0-100); Basophils Percent Auto 0.5 % (0-2); Eosinophils Absolute Auto 0 /uL (0-450); Eosinophils Percent Auto 0.5 % (2-4); Hematocrit 41.1 % (36-46); Hemoglobin 13.9 g/dL (12.0-16.0); Lymphocytes Absolute Auto 1300 /uL (1100-4500); Lymphocytes Percent Auto 18.1 % (25-40); Mean Corpuscular HGB Conc 33.7 % (30-36); Mean Corpuscular Hemoglobin 30.1 PG (26-34); Mean Corpuscular Volume 89.4 fL (80-100); Monocytes Absolute Auto 600 /uL (0-900); Monocytes Percent Auto 8.5 % (3-14); Neutrophils Absolute Auto 5400 /uL (1500-7000); Neutrophils Percent Auto 72.4 % (50-75); Platelet Count 300 X10^3/uL (150-400); White Blood Cell Count 7.4 X10^3/uL (4.5-11.0)
[2023-12-21 20:54] LABS: INR 1.3 (0.9-1.3); Prothrombin Time 14.5 SECONDS (9.4-12.5)
[2023-12-21 20:57] LABS: PTT Partial Thromboplastin Tim 40 SECONDS (25.1-36.5)
[2023-12-21 20:58] LABS: Alanine Aminotransferase 22 IU/L (<35); Albumin 4.3 g/dL (3.5-5.0); Albumin Globulin Ratio 1.3 (1.0-2.8); Alkaline Phosphatase 102 U/L (38-126); Aspartate Aminotransferase 29 IU/L (14-36); BUN Creatinine Ratio 19.4 (6-22); Bilirubin Total 0.2 mg/dL (0.2-1.3); Blood Urea Nitrogen 13 mg/dL (7-17); Calcium 9.6 mg/dL (8.4-10.2); Carbon Dioxide 25 mmol/L (22-32); Chloride 102 mmol/L (98-107); Creatine Kinase 132 U/L (30-135); Estimated Glomerular Filt Rate > 60 mL/min (>60); Globulin 3.2 g/dL (1.7-4.1); Glucose 135 mg/dL (80-110); HEMOLYSIS < 15 (0-50); Lipase 75 U/L (23-300); Potassium 3.6 mmol/L (3.4-5.1); Sodium 137 mmol/L (137-145); Total Protein 7.5 g/dL (6.3-8.2)
[2023-12-21 21:10] LABS: NT-proBNP (BNP-Adult 18+) 323 pg/mL (<450); Troponin I 0.013 ng/mL (0.01-0.034)
--- NOTE | 2023-12-21 21:37 | ED.ARRPALP ---
HPI - Arrhythmia/Palpitations General Chief Complaint: Arrhythmia/Palpitations Stated Complaint: afib Time Seen by Provider: 12/21/23 21:19 Source: patient Mode of arrival: Ambulatory History of Present Illness HPI narrative: Patient is a 78-year-old female. Has a history of paroxysmal atrial fibrillation. Is on apixaban. Has been on this medication consistently for months now. Is also on diltiazem what she states she was taken on a daily basis. Over the past couple days she was had occasional episodes of what she describes as fluttering of the left side of her chest. She was feeling those symptoms currently it has been more persistent throughout the day today. No chest pain. She also states that she has asthma. He states that her albuterol causes her to have an increase in heart rate. No fevers. No abdominal pain. Some nausea. Just generally does not feel very well. Related Data Home Medications Medication Instructions Recorded Confirmed cetirizine 10 mg tablet 10 mg PO QDAYP PRN ##0 06/03/16 11/19/23 multivitamin (Multiple Vitamins 1 tab PO QDAY ##0 12/16/16 11/19/23 tablet) Fish Oil 1 cap PO .QDAY 07/06/18 11/19/23 fluticasone propionate 110 inhalation 08/30/23 11/19/23 mcg/actuation HFA aerosol inhaler montelukast 10 mg tablet 10 mg PO DAILY 08/30/23 11/19/23 Previous Rx's Medication Instructions Recorded omeprazole 20 mg capsule,delayed 20 mg PO DAILY #90 caps 05/28/23 release apixaban 5 mg tablet (Eliquis) 5 mg PO BID #60 tabs 06/30/23 levalbuterol tartrate 45 2 inh inhalation Q6H PRN shortness 07/14/23 mcg/actuation aerosol inhaler of breath or wheezing #15 grams albuterol sulfate 90 mcg/actuation 2 puff inhalation Q4-6H PRN 08/05/23 aerosol inhaler (Ventolin HFA) wheezing #18 grams diltiazem HCl 120 mg 120 mg PO BID #180 caps 09/28/23 capsule,extended release 12 hr Allergies Allergy/AdvReac Type Severity Reaction Status Date / Time cephalexin [From KEFLEX] AdvReac Intermediate rash Verified 11/19/23 14:13 morphine [MORPHINE] AdvReac Intermediate rash Verified 11/19/23 14:13 high dose flu shot Allergy Throat Uncoded 11/19/23 14:13 closing, hoarsness Review of Systems Review of Systems ROS Unobtainable: All systems reviewed & are unremarkable except as noted in HPI and below Patient History Medical History Seasonal allergies Upper back pain Elevated blood pressure reading Heartburn Asthma Chronic rhinosinusitis Mixed hyperlipidemia Family history of cardiovascular disease Seasonal allergic rhinitis due to pollen Surgical History History of ankle surgery History of replacement of both shoulder joints Status post appendectomy Status post knee surgery Family History Father Leukemia Cancer Social History household members: none Smoking Status: Never smoker second hand exposure: No alcohol intake: current substance use type: does not use Smoking Status: Never smoker alcohol intake frequency: a few times a week Substance Use Type: does not use Exam Initial Vital Signs Initial Vital Signs: Vital Signs Temperature 97.8 F 12/21/23 20:22 Pulse Rate 128 H 12/21/23 20:22 Respiratory Rate 20 12/21/23 20:22 Blood Pressure 162/124 H 12/21/23 20:22 Pulse Oximetry 97 12/21/23 20:22 Oxygen Delivery Method Room Air 12/21/23 20:22 Const General: cooperative, comfortable and No ill appearing HENMT Head: normal to inspection and normocephalic Resp Effort & Inspection: normal respiratory effort Auscultation: clear to auscultation bilaterally Cardio Rate: tachycardic Rhythm: abnormal rhythm GI Inspection: normal to inspection and non-distended Skin General: no rashes or lesions noted Neuro General: patient alert, patient awake, patient oriented x3 and moves all extremities Extrem General: No edema Procedures Cardioversion Consent Signed: Yes Indication: Atrial fibrillation Stability: Stable Number of attempts (shocks): 1 Joules used: 200 Cardiac rhythm post-cardioversion: Sinus rhythm Procedural Sedation Consent signed: Yes Time out performed: Yes Indication: cardioversion ASA Class: III Mallampati Airway Classification: Class II Preparation: textile slitting machine operator applied, pulse oximeter, capnometry used, supplemental O2 applied, suction/airway equipment at bedside and IV secured Fentanyl: IV Fentanyl dose (mcg): 12 IV Propofol dose (mg): 40 Intraservice time/total sedation time (min): 15 ED Sedation Level: Moderate (Concious) Patient Tolerated Procedure: Well Complications: none Course Orders Ordered: ED Orders 12/21/23 20:28 XR chest 1V Stat EKG-12 Lead Stat 12/21/23 20:40 Complete Blood Count AUTO DIFF Stat Comprehensive Metabolic Panel Stat Lipase Stat Magnesium Stat NT-proBNP (BNP-Adult 18+) Stat PTT Partial Thromboplastin Sánchez Stat Prothrombin Time INR Stat Troponin & CK Cardiac Panel Stat 12/22/23 00:10 EKG-12 Lead Stat 12/22/23 00:11 EKG-12 Lead Stat Discontinued Medications Diltiazem HCl (Diltiazem 25 Mg/5 Ml Sdv) 10 mg IV NOW ONE Stop: 12/21/23 21:39 Last Admin: 12/21/23 21:45 Dose: 10 mg Documented By: Fentanyl (Fentanyl 100 Mcg/2 Ml Inj) 12.5 mcg IV NOW ONE Stop: 12/21/23 23:32 Last Admin: 12/22/23 00:04 Dose: 12.5 mcg Documented By: Propofol (Propofol 200 Mg/20 Ml Vial) 100 mg IV NOW ONE Stop: 12/21/23 23:32 Last Admin: 12/22/23 00:12 Dose: 40 mg Documented By: Vital Signs Vital signs: Vital Signs - 8 hr 12/21/23 20:22 12/21/23 21:18 12/21/23 21:18 Temperature 97.8 F Pulse Rate 128 H 116 H Respiratory Rate 20 14 18 Blood Pressure 162/124 H 137/99 H Pulse Oximetry 97 96 96 Oxygen Delivery Method Room Air Room Air Oxygen Flow Rate 12/21/23 21:30 12/21/23 21:31 12/21/23 21:31 Temperature Pulse Rate 132 H 121 H Respiratory Rate 22 22 Blood Pressure 207/122 H Pulse Oximetry 96 95 Oxygen Delivery Method Oxygen Flow Rate 12/21/23 21:45 12/21/23 21:46 12/21/23 21:46 Temperature Pulse Rate 109 H 115 H Respiratory Rate 13 Blood Pressure 189/98 H 209/139 H Pulse Oximetry Oxygen Delivery Method Oxygen Flow Rate 12/21/23 21:51 12/21/23 21:51 12/21/23 22:00 Temperature Pulse Rate 87 Respiratory Rate 20 Blood Pressure 171/77 H 173/105 H Pulse Oximetry 96 Oxygen Delivery Method Oxygen Flow Rate 12/21/23 22:00 12/21/23 22:27 12/21/23 22:27 Temperature Pulse Rate 120 H 98 H Respiratory Rate 18 21 Blood Pressure 197/123 H Pulse Oximetry 96 97 Oxygen Delivery Method Oxygen Flow Rate 12/21/23 22:30 12/21/23 22:30 12/21/23 23:00 Temperature Pulse Rate 92 H 83 Respiratory Rate 21 17 Blood Pressure 182/94 H Pulse Oximetry 98 96 Oxygen Delivery Method Oxygen Flow Rate 12/21/23 23:00 12/21/23 23:30 12/21/23 23:30 Temperature Pulse Rate 93 H Respiratory Rate 28 H Blood Pressure 182/91 H 191/128 H Pulse Oximetry 98 Oxygen Delivery Method Room Air Oxygen Flow Rate 12/21/23 23:49 12/21/23 23:49 12/21/23 23:50 Temperature Pulse Rate 86 85 Respiratory Rate 21 21 Blood Pressure 194/107 H Pulse Oximetry 97 98 Oxygen Delivery Method Oxygen Flow Rate 12/21/23 23:50 12/21/23 23:55 12/21/23 23:55 Temperature Pulse Rate 95 H Respiratory Rate 26 H Blood Pressure 175/107 H 156/97 H Pulse Oximetry 97 Oxygen Delivery Method Oxygen Flow Rate 12/22/23 00:00 12/22/23 00:00 12/22/23 00:05 Temperature Pulse Rate 89 Respiratory Rate 18 Blood Pressure 207/103 H 170/113 H Pulse Oximetry 97 Oxygen Delivery Method Oxygen Flow Rate 12/22/23 00:05 12/22/23 00:06 12/22/23 00:10 Temperature Pulse Rate 91 H 65 65 Respiratory Rate 27 H 16 16 Blood Pressure 170/113 H Pulse Oximetry 97 94 93 Oxygen Delivery Method Oxygen Flow Rate 12/22/23 00:10 12/22/23 00:13 12/22/23 00:15 Temperature Pulse Rate 66 69 Respiratory Rate 24 22 Blood Pressure 147/78 H 147/78 H 172/98 H Pulse Oximetry 96 96 Oxygen Delivery Method Oxygen Flow Rate 0 12/22/23 00:15 12/22/23 00:15 12/22/23 00:20 Temperature Pulse Rate 66 66 Respiratory Rate 29 H 16 Blood Pressure 172/89 H Pulse Oximetry 97 94 Oxygen Delivery Method Oxygen Flow Rate 12/22/23 00:20 12/22/23 00:25 12/22/23 00:25 Temperature Pulse Rate 66 Respiratory Rate 20 Blood Pressure 157/90 H 156/89 H Pulse Oximetry 96 Oxygen Delivery Method Oxygen Flow Rate 12/22/23 00:30 12/22/23 00:30 12/22/23 00:35 Temperature Pulse Rate 66 Respiratory Rate 24 Blood Pressure 157/87 H 152/87 H Pulse Oximetry 96 Oxygen Delivery Method Oxygen Flow Rate 12/22/23 00:35 12/22/23 00:40 12/22/23 00:40 Temperature Pulse Rate 66 65 Respiratory Rate 33 H 22 Blood Pressure 155/97 H Pulse Oximetry 95 96 Oxygen Delivery Method Oxygen Flow Rate 12/22/23 00:45 12/22/23 00:45 12/22/23 00:50 Temperature Pulse Rate 64 Respiratory Rate 22 28 H Blood Pressure 161/90 H 153/93 H Pulse Oximetry 95 96 Oxygen Delivery Method Room Air Oxygen Flow Rate 12/22/23 00:50 12/22/23 00:55 12/22/23 00:55 Temperature Pulse Rate 64 64 Respiratory Rate 19 25 H Blood Pressure 148/82 H Pulse Oximetry 96 95 Oxygen Delivery Method Oxygen Flow Rate 12/22/23 01:00 12/22/23 01:00 12/22/23 01:05 Temperature Pulse Rate 63 66 Respiratory Rate 29 H 18 Blood Pressure 161/89 H Pulse Oximetry 96 98 Oxygen Delivery Method Oxygen Flow Rate 12/22/23 01:05 Temperature Pulse Rate Respiratory Rate Blood Pressure 164/89 H Pulse Oximetry Oxygen Delivery Method Oxygen Flow Rate MDM - Arrhythmia/Palpitations Lab Data Attestation: I reviewed the patient's lab results. 12/21/23 20:40 12/21/23 20:40 Labs: Lab Results 12/21/23 Range/Units 20:40 WBC 7.4 (4.5-11.0) X10^3/uL RBC 4.60 (4.0-5.2) X10^6/uL Hgb 13.9 (12.0-16.0) g/dL Hct 41.1 (36-46) % MCV 89.4 (80-100) fL MCH 30.1 (26-34) PG MCHC 33.7 (30-36) % RDW 14.0 (11.6-14.8) % Plt Count 300 (150-400) X10^3/uL Neut % (Auto) 72.4 (50-75) % Lymph % (Auto) 18.1 L (25-40) % Cook % (Auto) 8.5 (3-14) % Eos % (Auto) 0.5 L (2-4) % Baso % (Auto) 0.5 (0-2) % Neut # (Auto) 5400 (9076-7118) /uL Lymph # (Auto) 1300 (4427-8068) /uL Cook # (Auto) 600 (0-900) /uL Eos # (Auto) 0 (0-450) /uL Baso # (Auto) 0 (0-100) /uL PT 14.5 H (9.4-12.5) SECONDS INR 1.3 (0.9-1.3) APTT 40 H (25.1-36.5) SECONDS Sodium 137 (137-145) mmol/L Potassium 3.6 (3.4-5.1) mmol/L Chloride 102 (98-107) mmol/L Carbon Dioxide 25 (22-32) mmol/L BUN 13 (7-17) mg/dL Creatinine 0.67 (0.52-1.04) mg/dL Estimated GFR > 60 (>60) mL/min BUN/Creatinine Ratio 19.4 (6-22) Glucose 135 H (80-110) mg/dL Calcium 9.6 (8.4-10.2) mg/dL Magnesium 2.0 (1.6-2.3) mg/dL Total Bilirubin 0.2 (0.2-1.3) mg/dL AST 29 (14-36) IU/L ALT 22 (<35) IU/L Alkaline Phosphatase 102 (38-126) U/L Total Creatine Kinase 132 (30-135) U/L Troponin I 0.013 (0.01-0.034) ng/mL NT-Pro-B Natriuret Pep 323 (<450) pg/mL Total Protein 7.5 (6.3-8.2) g/dL Albumin 4.3 (3.5-5.0) g/dL Globulin 3.2 (1.7-4.1) g/dL Albumin/Globulin Ratio 1.3 (1.0-2.8) Lipase 75 (23-300) U/L Point of Care Testing Test Results Not applicable Imaging Data Chest x-ray: Radiologist's Impresson: PROCEDURE: XR CHEST 1V INDICATIONS: chest pain TECHNIQUE: One view of the chest was acquired. COMPARISON: [facility], CR, XR CHEST 1V, 07/14/2023, 9:57. [facility], CR, XR CHEST 1V, 06/03/2023, 18:06. [facility], CR, XR CHEST 1V, 04/15/2023, 5:53. [facility], CR, XR CHEST 1V, 04/16/2019, 23:50. FINDINGS: Surgical changes and devices: None. Lungs and pleura: Lungs are clear. No pleural effusions or pneumothorax. Mediastinum: Aortic arch calcifications. Mediastinal contours appear normal. Heart size is normal. Bones and chest wall: No suspicious bony lesions. Overlying soft tissues appear unremarkable. Partially identified right shoulder arthroplasty. IMPRESSION: No acute cardiothoracic process. ECG Data Interpretation: Have atrial flutter Ventricular rate of 104 Left axis deviation Incomplete right bundle-branch block No ST T wave changes Repeat EKG Sinus rhythm Ventricular rate is 66 Left axis deviation Incomplete right bundle-branch block No ST T wave changes MDM Narrative Medical decision making narrative: Patient has a history of paroxysmal atrial fibrillation. She was on anticoagulation and has been taking this medication daily for least the past month if not longer. She arrives in atrial fibrillation. Discussed options to include rate control versus rhythm control. Initially she was more leaning towards a rate control so diltiazem was given. This did improve her heart rate to where she was consistently in the 80s to 90s but was still in atrial fibrillation. I had a discussion with her regarding her current options to include cardioversion versus discharge home with being rate controlled and continuing her medications and following up with Cardiology. After discussion the patient opted for cardioversion. Patient signed the consent form. Cardioversion was performed and was successful. The patient recovered without incident. Will have her contact her primary doctor and new vehicle sales consultant for follow-up. Will have her continue to take her medications as directed. She expressed understanding and agreement. Discharge Plan Departure Patient Disposition: Home Clinical Impression: Atrial fibrillation Instructions: DI for Cardioversion Activity Restrictions/Additional Instructions: Recommend that you continue to take all of your medications as directed. When the office is open later today contact your primary doctor and also your new vehicle sales consultant for follow-up. Return to the emergency department for new or worsening symptoms. Prescriptions: No Action fluticasone propionate 110 mcg/actuation HFA aerosol inhaler inhalation montelukast 10 mg tablet 10 mg PO DAILY omeprazole 20 mg capsule,delayed release(DR/EC) 20 mg PO DAILY Qty: 90 2RF cetirizine 10 MG tablet 10 mg PO QDAYP PRNQty: 0 multivitamin [Multiple Vitamins] 1 EACH tablet 1 tab PO QDAY Qty: 0 Eliquis 5 mg tablet 5 mg PO BID Qty: 60 2RF albuterol sulfate [Ventolin HFA] 90 mcg/actuation HFA aerosol inhaler 2 puff INHALATION Q4-6H PRN (Reason: wheezing) Qty: 18 3RF diltiazem HCl 120 mg capsule,extended release 12 hr 120 mg PO BID Qty: 180 2RF Fish Oil 1 cap PO .QDAY levalbuterol tartrate 45 mcg/actuation HFA aerosol inhaler 2 inh inhalation Q6H PRN (Reason: shortness of breath or wheezing) Qty: 15 0RF Rx Instructions: DX Asthma, Atrial fibrillation Referrals: Rocio Thomas MD [Primary Care Provider] - Stand Alone Forms: Patient Portal/API
[2023-12-21] MEDS: dilTIAZem 25 MG/5 ML SDV 10 MG IV (21:45)
--- NOTE | 2023-12-21 22:46 | PC.NURSE ---
Pt HR 85-94.BP continues to remain 189/95, Dr Valles notified.
[2023-12-22] VITALS (16 sets, daily range): BP systolic 147–207; BP diastolic 78–113; PULSE 63–91; RESP 16–33; O2SAT 93–98
[2023-12-22] MEDS: fentaNYL 100 MCG/2 ML INJ 12.5 MCG IV (00:04)
--- NOTE | 2023-12-22 00:10 | EKG_ITS ---
[address] [address] Test Date: 2023-12-22 Pat Name: Alicia Richmond Department: Room: Gender: Female Strategic Sourcing Manager: SAVANAH : 1945 Requested By: Order Number: [id number] Reading MD: Albert Deleon Measurements Intervals [place] Rate: 66 P: 39 MA: 186 QRS: -55 QRSD: 108 T: 44 QT: 414 QTc: 434 Interpretive Statements Normal sinus rhythm Incomplete right bundle branch block Left anterior fascicular block Minimal voltage criteria for LVH, may be normal variant ( [place] product ) Septal infarct , age undetermined Electronically Signed On 12-22-2023 18:09:56 PDT by Albert Deleon
[2023-12-22] MEDS: propofoL 200 MG/20 ML VIAL 100 MG IV (00:12)
== END 2023-12-22 01:18 | disposition home or self-care (01) ==
PROVIDERS: Emergency Provider Emergency Medicine; PCP Family Medicine
DX: I48.0 Paroxysmal atrial fibrillation (principal); Z79.01 Long term (current) use of anticoagulants; R07.9 Chest pain, unspecified; I45.2 Bifascicular block; R11.0 Nausea
CPT/HCPCS: 36415; 71045; 80053; 82550; 83690; 83735; 83880; 84484; 85025; 85610; 85730; 92960; 93005; 96374; 99152; 99285; J2704; J3010

== ENCOUNTER 2024-03-05 01:19 | Emergency (ER) | payer MEDICARE, OTHER, SELFPAY ==
[2023-11-09 11:03] VITALS: BMI 28.8
[2024-03-05] VITALS (25 sets, daily range): BP systolic 115–203; BP diastolic 57–106; PULSE 51–151; RESP 12–54; TEMP 37; O2SAT 92–98; BMI 23.6
--- NOTE | 2024-03-05 01:26 | EKG_ITS ---
[address] [address] Test Date: 2024-03-05 Pat Name: Alicia Richmond Department: Room: Gender: Female Glove Stitcher: ADRIAN : 1945 Requested By: Order Number: [id number] Reading MD: Gerhard Shipman Measurements Intervals [place] Rate: 114 P: [place]: QRS: -58 QRSD: 92 T: 57 QT: 346 QTc: 476 Interpretive Statements Atrial fibrillation with rapid ventricular response Left anterior fascicular block Minimal voltage criteria for LVH, may be normal variant ( [place] product ) Electronically Signed On 03-09-2024 9:35:37 PST by Gerhard Shipman
--- NOTE | 2024-03-05 01:41 | ED_ITS ---
HPI - General Adult General Chief complaint: Arrhythmia/Palpitations Stated complaint: afib Time Seen by Provider: 03/05/24 01:27 Source: patient Mode of arrival: Ambulatory Limitations: no limitations History of Present Illness HPI narrative: Patient is a 78-year-old female. History of atrial fibrillation. Is on diltiazem and apixaban. She has been cardioverted in the past. Is normally in sinus rhythm. Has not missed any of the doses of her medications. Over the past 12 hours she was noticed intermittent palpitations with heart rate occasionally into the 150s and then over the past several hours has had persistent palpitations. No lightheadedness. No chest pain. She reports some uneasy feeling in her abdomen. Is having some nausea. Is having urinary frequency. No fevers. Related Data Home Medications Medication Instructions Recorded Confirmed cetirizine 10 mg tablet 10 mg PO QDAYP PRN ##0 06/03/16 02/10/24 multivitamin (Multiple Vitamins 1 tab PO QDAY ##0 12/16/16 02/10/24 tablet) Fish Oil 1 cap PO .QDAY 07/06/18 02/10/24 fluticasone propionate 110 inhalation 08/30/23 02/10/24 mcg/actuation HFA aerosol inhaler Previous Rx's Medication Instructions Recorded omeprazole 20 mg capsule,delayed 20 mg PO DAILY #90 caps 05/28/23 release apixaban 5 mg tablet (Eliquis) 5 mg PO BID #60 tabs 06/30/23 albuterol sulfate 90 mcg/actuation 2 puff inhalation Q4-6H PRN 08/05/23 aerosol inhaler (Ventolin HFA) wheezing #18 grams diltiazem HCl 120 mg 120 mg PO BID #180 caps 09/28/23 capsule,extended release 12 hr Allergies Allergy/AdvReac Type Severity Reaction Status Date / Time cephalexin [From KEFLEX] AdvReac Intermediate rash Verified 02/10/24 10:16 morphine [MORPHINE] AdvReac Intermediate rash Verified 02/10/24 10:16 high dose flu shot Allergy Throat Uncoded 02/10/24 10:16 closing, hoarsness Review of Systems Review of Systems ROS Unobtainable: All systems reviewed & are unremarkable except as noted in HPI and below Patient History Medical History Seasonal allergies Upper back pain Elevated blood pressure reading Heartburn Asthma Chronic rhinosinusitis Mixed hyperlipidemia Family history of cardiovascular disease Seasonal allergic rhinitis due to pollen Surgical History History of ankle surgery History of replacement of both shoulder joints Status post appendectomy Status post knee surgery Family History Father Leukemia Cancer Social History household members: none Smoking Status: Never smoker second hand exposure: No alcohol intake: current substance use type: does not use Smoking Status: Never smoker alcohol intake frequency: a few times a week Exam Initial Vital Signs Initial Vital Signs: Vital Signs Temperature 98.6 F 03/05/24 01:22 Pulse Rate 122 H 03/05/24 01:22 Respiratory Rate 21 03/05/24 01:22 Blood Pressure 176/100 H 03/05/24 01:22 Pulse Oximetry 97 03/05/24 01:22 Oxygen Delivery Method Room Air 03/05/24 01:22 Const General: cooperative, comfortable and No ill appearing HENCA Head: normal to inspection Resp Effort & Inspection: normal respiratory effort Auscultation: clear to auscultation bilaterally Cardio Rate: tachycardic Rhythm: abnormal rhythm GI Inspection: normal to inspection Skin General: no rashes or lesions noted Neuro General: patient alert, patient awake and moves all extremities Procedures Cardioversion Consent Signed: Yes Indication: Atrial fibrillation Stability: Stable Number of attempts (shocks): 1 Joules used: 120 Cardiac rhythm post-cardioversion: Sinus rhythm Procedural Sedation Consent signed: Yes Indication: cardioversion ASA Class: II Mallampati Airway Classification: Class II Preparation: monitoring engineer applied, pulse oximeter, capnometry used, supplemental O2 applied, suction/airway equipment at bedside and IV secured Fentanyl: IV Fentanyl dose (mcg): 12 IV Propofol dose (mg): 40 Intraservice time/total sedation time (min): 15 ED Sedation Level: Moderate (Concious) Patient Tolerated Procedure: No complications Complications: none Course Orders Ordered: ED Orders 03/05/24 01:21 EKG-12 Lead Stat 03/05/24 01:34 Complete Blood Count AUTO DIFF Stat Comprehensive Metabolic Panel Stat Lipase Stat Magnesium Stat Troponin & CK Cardiac Panel Stat 03/05/24 04:44 EKG-12 Lead Stat Discontinued Medications Fentanyl (Fentanyl 100 Mcg/2 Ml Inj) 12.5 mcg IV NOW ONE Stop: 03/05/24 02:56 Last Admin: 03/05/24 04:37 Dose: 12.5 mcg Documented By: SASHA Amiodarone HCl/Dextrose (Nexterone) 150 mg in 100 mls @ 600 mls/hr IV NOW ONE; Protocol Stop: 03/05/24 01:37 Last Infusion: 03/05/24 02:05 Dose: Infused Documented By: Admin: 03/05/24 01:45 Dose: 600 mls/hr Documented By: SASHA Ondansetron HCl (Ondansetron 4 Mg/2 Ml Inj) 4 mg IV NOW ONE Stop: 03/05/24 04:16 Last Admin: 03/05/24 04:19 Dose: 4 mg Documented By: SASHA Propofol (Propofol 200 Mg/20 Ml Vial) 100 mg IV NOW ONE Stop: 03/05/24 02:56 Last Admin: 03/05/24 04:39 Dose: 40 mg Documented By: SASHA Vital Signs Vital signs: Vital Signs - 8 hr 03/05/24 01:22 03/05/24 01:27 03/05/24 01:28 Temperature 98.6 F Pulse Rate 122 H 151 H Respiratory Rate 21 Blood Pressure 176/100 H 176/100 H Pulse Oximetry 97 97 Oxygen Delivery Method Room Air Oxygen Flow Rate 03/05/24 01:28 03/05/24 01:30 03/05/24 01:30 Temperature Pulse Rate 120 H 110 H Respiratory Rate 22 Blood Pressure 195/93 H Pulse Oximetry 98 98 Oxygen Delivery Method Oxygen Flow Rate 03/05/24 01:48 03/05/24 01:48 03/05/24 02:00 Temperature Pulse Rate 127 H 85 Respiratory Rate 14 Blood Pressure 203/106 H Pulse Oximetry 97 96 Oxygen Delivery Method Oxygen Flow Rate 03/05/24 02:00 03/05/24 02:19 03/05/24 02:19 Temperature Pulse Rate 97 H Respiratory Rate 21 Blood Pressure 150/76 H 161/82 H Pulse Oximetry 95 Oxygen Delivery Method Oxygen Flow Rate 03/05/24 02:30 03/05/24 02:30 03/05/24 03:00 Temperature Pulse Rate 86 90 Respiratory Rate 13 13 Blood Pressure 148/72 H Pulse Oximetry 94 94 Oxygen Delivery Method Oxygen Flow Rate 03/05/24 03:00 03/05/24 03:30 03/05/24 04:00 Temperature Pulse Rate 95 H 87 Respiratory Rate 22 Blood Pressure 156/84 H Pulse Oximetry 98 95 Oxygen Delivery Method Oxygen Flow Rate 03/05/24 04:13 03/05/24 04:13 03/05/24 04:30 Temperature Pulse Rate 98 H 80 Respiratory Rate Blood Pressure 139/90 Pulse Oximetry 97 96 Oxygen Delivery Method Room Air Oxygen Flow Rate 03/05/24 04:31 03/05/24 04:31 03/05/24 04:41 Temperature Pulse Rate 86 Respiratory Rate Blood Pressure 129/62 115/57 L Pulse Oximetry 95 Oxygen Delivery Method Room Air Oxygen Flow Rate 03/05/24 04:41 03/05/24 04:43 03/05/24 04:43 Temperature Pulse Rate 57 L 56 L Respiratory Rate 14 24 Blood Pressure 128/71 Pulse Oximetry 97 92 Oxygen Delivery Method Nasal Cannula Oxygen Flow Rate 2 03/05/24 04:46 03/05/24 04:46 03/05/24 04:48 Temperature Pulse Rate 54 L Respiratory Rate Blood Pressure 134/71 137/69 Pulse Oximetry 97 Oxygen Delivery Method Room Air Oxygen Flow Rate 03/05/24 04:48 03/05/24 04:50 03/05/24 04:50 Temperature Pulse Rate 54 L 53 L Respiratory Rate Blood Pressure 124/70 Pulse Oximetry 97 95 Oxygen Delivery Method Oxygen Flow Rate 03/05/24 04:52 03/05/24 04:55 03/05/24 04:55 Temperature Pulse Rate 56 L 54 L Respiratory Rate 16 54 H Blood Pressure 141/71 H Pulse Oximetry 94 Oxygen Delivery Method Oxygen Flow Rate 03/05/24 05:00 03/05/24 05:00 03/05/24 05:05 Temperature Pulse Rate 51 L Respiratory Rate 12 Blood Pressure 136/76 134/76 Pulse Oximetry 94 Oxygen Delivery Method Oxygen Flow Rate 03/05/24 05:05 03/05/24 05:10 03/05/24 05:10 Temperature Pulse Rate 51 L 52 L Respiratory Rate 18 17 Blood Pressure 133/77 Pulse Oximetry 94 96 Oxygen Delivery Method Oxygen Flow Rate Medical Decision Making Medical Records Medical records reviewed: Yes I reviewed the patient's medical records. Lab Data Lab results reviewed: Yes I reviewed the patient's lab results. 03/05/24 01:34 03/05/24 01:34 Labs: Lab Results 03/05/24 Range/Units 01:34 WBC 7.8 (4.5-11.0) X10^3/uL RBC 4.55 (4.0-5.2) X10^6/uL Hgb 13.7 (12.0-16.0) g/dL Hct 40.9 (36-46) % MCV 89.8 (80-100) fL MCH 30.2 (26-34) PG MCHC 33.6 (30-36) % RDW 13.8 (11.6-14.8) % Plt Count 288 (150-400) X10^3/uL Neut % (Auto) 70.1 (50-75) % Lymph % (Auto) 19.4 L (25-40) % [place] % (Auto) 9.1 (3-14) % Eos % (Auto) 1.1 L (2-4) % Baso % (Auto) 0.3 (0-2) % Neut # (Auto) 5500 (8790-6499) /uL Lymph # (Auto) 1500 (9102-2226) /uL [place] # (Auto) 700 (0-900) /uL Eos # (Auto) 100 (0-450) /uL Baso # (Auto) 0 (0-100) /uL Sodium 136 L (137-145) mmol/L Potassium 3.4 (3.4-5.1) mmol/L Chloride 105 (98-107) mmol/L Carbon Dioxide 25 (22-32) mmol/L BUN 23 H (7-17) mg/dL Creatinine 0.95 (0.52-1.04) mg/dL Estimated GFR > 60 (>60) mL/min BUN/Creatinine Ratio 24.2 H (6-22) Glucose 133 H (80-110) mg/dL Calcium 9.4 (8.4-10.2) mg/dL Magnesium 2.1 (1.6-2.3) mg/dL Total Bilirubin 0.4 (0.2-1.3) mg/dL AST 32 (14-36) IU/L ALT 24 (<35) IU/L Alkaline Phosphatase 101 (38-126) U/L Total Creatine Kinase 141 H (30-135) U/L Troponin I < 0.012 (0.01-0.034) ng/mL Total Protein 7.1 (6.3-8.2) g/dL Albumin 4.1 (3.5-5.0) g/dL Globulin 3.0 (1.7-4.1) g/dL Albumin/Globulin Ratio 1.4 (1.0-2.8) Lipase 203 (23-300) U/L ECG Data Attestation: I personally reviewed and interpreted this ECG as follows: Interpretation: Atrial fibrillation Ventricular rate of 114 Left axis deviation Normal QRS No ST T wave changes Post cardioversion Sinus bradycardia Ventricular rate of 53 Incomplete right bundle-branch block Normal axis No ST T wave changes MDM Narrative Medical decision making narrative: Patient with a history of AFib with RVR. Here in the emergency department this evening with AFib with RVR. Has not missed any of her medications. Patient was stable. Attempted amiodarone without success a conversion. Electrolytes are unremarkable. Discussed cardioversion. Consent was signed. Patient was cardioverted successfully as described above. Sinus rhythm post cardioversion. Symptoms have been present for less than 24 hours. She was anticoagulated. Will have her continue to take all of her medications as directed. Contact your primary doctor and receiver/laborer for follow-up. Discharge Plan Departure Patient Disposition: Home Clinical Impression: Atrial fibrillation Instructions: DI for Cardioversion, DI for Atrial Fibrillation Activity Restrictions/Additional Instructions: Our cardioversion today was successful. I recommend that you continue to take all of your medications as directed and on Wednesday contact both your primary doctor and also your receiver/laborer for follow-up. Return to the emergency department for new or worsening symptoms. Prescriptions: No Action fluticasone propionate 110 mcg/actuation HFA aerosol inhaler inhalation omeprazole 20 mg capsule,delayed release(DR/EC) 20 mg PO DAILY Qty: 90 2RF cetirizine 10 MG tablet 10 mg PO QDAYP PRNQty: 0 multivitamin [Multiple Vitamins] 1 EACH tablet 1 tab PO QDAY Qty: 0 Eliquis 5 mg tablet 5 mg PO BID Qty: 60 2RF albuterol sulfate [Ventolin HFA] 90 mcg/actuation HFA aerosol inhaler 2 puff INHALATION Q4-6H PRN (Reason: wheezing) Qty: 18 3RF diltiazem HCl 120 mg capsule,extended release 12 hr 120 mg PO BID Qty: 180 2RF Fish Oil 1 cap PO .QDAY Referrals: Rocio Thomas MD [Primary Care Provider] - Stand Alone Forms: Patient Portal/API/Survey
[2024-03-05 01:44] LABS: Add Manual Diff / Slide Review NO; Basophils Absolute Auto 0 /uL (0-100); Basophils Percent Auto 0.3 % (0-2); Eosinophils Absolute Auto 100 /uL (0-450); Eosinophils Percent Auto 1.1 % (2-4); Hematocrit 40.9 % (36-46); Hemoglobin 13.7 g/dL (12.0-16.0); Lymphocytes Absolute Auto 1500 /uL (1100-4500); Lymphocytes Percent Auto 19.4 % (25-40); Mean Corpuscular HGB Conc 33.6 % (30-36); Mean Corpuscular Hemoglobin 30.2 PG (26-34); Mean Corpuscular Volume 89.8 fL (80-100); Monocytes Absolute Auto 700 /uL (0-900); Monocytes Percent Auto 9.1 % (3-14); Neutrophils Absolute Auto 5500 /uL (1500-7000); Neutrophils Percent Auto 70.1 % (50-75); Platelet Count 288 X10^3/uL (150-400); Red Blood Cell Count 4.55 X10^6/uL (4.0-5.2); Red Cell Distribution Width 13.8 % (11.6-14.8); White Blood Cell Count 7.8 X10^3/uL (4.5-11.0)
[2024-03-05] MEDS: AMIODARONE 150 MG/100 ML PIGGYBACK 600 MG IV (01:45)
[2024-03-05 01:55] LABS: Alanine Aminotransferase 24 IU/L (<35); Albumin 4.1 g/dL (3.5-5.0); Albumin Globulin Ratio 1.4 (1.0-2.8); Alkaline Phosphatase 101 U/L (38-126); Aspartate Aminotransferase 32 IU/L (14-36); BUN Creatinine Ratio 24.2 (6-22); Bilirubin Total 0.4 mg/dL (0.2-1.3); Blood Urea Nitrogen 23 mg/dL (7-17); Calcium 9.4 mg/dL (8.4-10.2); Carbon Dioxide 25 mmol/L (22-32); Chloride 105 mmol/L (98-107); Creatine Kinase 141 U/L (30-135); Estimated Glomerular Filt Rate > 60 mL/min (>60); Glucose 133 mg/dL (80-110); HEMOLYSIS < 15 (0-50); Lipase 203 U/L (23-300); Magnesium 2.1 mg/dL (1.6-2.3); Potassium 3.4 mmol/L (3.4-5.1); Sodium 136 mmol/L (137-145); Total Protein 7.1 g/dL (6.3-8.2)
[2024-03-05 02:06] LABS: Troponin I < 0.012 ng/mL (0.01-0.034)
[2024-03-05] MEDS: ONDANSETRON 4 MG/2 ML INJ IV (04:19)
--- NOTE | 2024-03-05 04:26 | PC.NURSE ---
patient complains of nausea and a headache. provider aware. zofran ordered and given. see mar.
[2024-03-05] MEDS: fentaNYL 100 MCG/2 ML INJ 12.5 MCG IV (04:37)
[2024-03-05] MEDS: propofoL 200 MG/20 ML VIAL 100 MG IV (04:39)
--- NOTE | 2024-03-05 04:48 | EKG_ITS ---
[address] [address] [place] [address] Test Date: 2024-03-05 Pat Name: Alicia Richmond Department: [facility] Room: Gender: Female Procurement Clerk: CORTEZ : 1945 Requested By: Order Number: [id number] Reading MD: Gerhard Shipman Measurements Intervals [place] Rate: 53 P: 21 SC: 162 QRS: -59 QRSD: 98 T: 32 QT: 452 QTc: 424 Interpretive Statements Sinus bradycardia Incomplete right bundle branch block Left anterior fascicular block Electronically Signed On 03-09-2024 9:35:49 PST by Gerhard Shipman
== END 2024-03-05 05:38 | disposition home or self-care (01) ==
PROVIDERS: Emergency Provider Emergency Medicine; PCP Family Medicine
DX: I48.91 Unspecified atrial fibrillation (principal); Z79.01 Long term (current) use of anticoagulants
CPT/HCPCS: 36415; 80053; 82550; 83690; 83735; 84484; 85025; 92960; 93005; 96365; 96375; 99152; 99285; 99291; J0282; J2405; J2704; J3010

== ENCOUNTER 2024-03-09 08:05 | Emergency (ER) | payer MEDICARE, OTHER, SELFPAY ==
[2023-11-09 11:03] VITALS: BMI 28.8
[2024-03-09] VITALS (16 sets, daily range): BP systolic 147–192; BP diastolic 74–84; PULSE 51–64; RESP 14–36; TEMP 36.8; O2SAT 96–99; BMI 24.0
--- NOTE | 2024-03-09 08:08 | EKG_ITS ---
[address] [address] Test Date: 2024-03-09 Pat Name: Ailcia Richmond Department: Room: Gender: Female Residential Caregiver: JLUIS : 1945 Requested By: Order Number: [id number] Reading MD: Gerhard Shipman Measurements Intervals [place] Rate: 55 P: 35 ME: 184 QRS: -45 QRSD: 94 T: 22 QT: 444 QTc: 424 Interpretive Statements Sinus bradycardia Left anterior fascicular block Electronically Signed On 03-09-2024 18:36:31 PST by Gerhard Shipman
--- NOTE | 2024-03-09 08:09 | DI.RAD.S_ITS ---
PROCEDURE: XR CHEST 1V INDICATIONS: chest pain TECHNIQUE: One view of the chest was acquired. COMPARISON: [facility], CR, XR CHEST 1V, 12/21/2023, 20:40. FINDINGS: Surgical changes and devices: Bilateral shoulder arthroplasties Lungs and pleura: Lungs are clear. No pleural effusions or pneumothorax. Mediastinum: Mediastinal contours appear normal. Heart size is normal. Bones and chest wall: No suspicious bony lesions. Overlying soft tissues appear unremarkable. IMPRESSION: No acute cardiopulmonary abnormality is seen. Dictated by: Juve Delaney M.D. on 03/09/2024 at 8:30 Approved by: Juve Delaney M.D. on 03/09/2024 at 8:30
--- NOTE | 2024-03-09 08:16 | PC.NURSE ---
Pt here 03/05/24 cardioverted for afib.
[2024-03-09 08:19] LABS: Add Manual Diff / Slide Review NO; Basophils Absolute Auto 0 /uL (0-100); Basophils Percent Auto 0.6 % (0-2); Eosinophils Absolute Auto 100 /uL (0-450); Eosinophils Percent Auto 1.9 % (2-4); Hematocrit 39.8 % (36-46); Hemoglobin 13.1 g/dL (12.0-16.0); Lymphocytes Absolute Auto 1400 /uL (1100-4500); Lymphocytes Percent Auto 23.4 % (25-40); Mean Corpuscular Hemoglobin 29.7 PG (26-34); Mean Corpuscular Volume 90.2 fL (80-100); Monocytes Absolute Auto 500 /uL (0-900); Monocytes Percent Auto 7.5 % (3-14); Neutrophils Absolute Auto 4100 /uL (1500-7000); Neutrophils Percent Auto 66.6 % (50-75); Platelet Count 259 X10^3/uL (150-400); Red Blood Cell Count 4.41 X10^6/uL (4.0-5.2); White Blood Cell Count 6.1 X10^3/uL (4.5-11.0)
--- NOTE | 2024-03-09 08:25 | ED_ITS ---
HPI - Chest Pain General Chief Complaint: Chest Pain Stated Complaint: chest discomfort Time Seen by Provider: 03/09/24 08:06 Source: patient Mode of arrival: Ambulatory Limitations: no limitations History of Present Illness HPI narrative: 78-year-old female. History of AFib. Is on anticoagulation and also diltiazem who is here for evaluation of chest discomfort. Unsure exactly when the discomfort started. Potentially was last evening but certainly felt the discomfort this morning. No shortness of breath. Is taking all of her medications as directed. Discomfort not worse with palpation or movement. She describes it as ?indigestion? Related Data Home Medications Medication Instructions Recorded Confirmed cetirizine 10 mg tablet 10 mg PO QDAYP PRN ##0 06/03/16 02/10/24 multivitamin (Multiple Vitamins 1 tab PO QDAY ##0 12/16/16 02/10/24 tablet) Fish Oil 1 cap PO .QDAY 07/06/18 02/10/24 fluticasone propionate 110 inhalation 08/30/23 02/10/24 mcg/actuation HFA aerosol inhaler Previous Rx's Medication Instructions Recorded omeprazole 20 mg capsule,delayed 20 mg PO DAILY #90 caps 05/28/23 release apixaban 5 mg tablet (Eliquis) 5 mg PO BID #60 tabs 06/30/23 albuterol sulfate 90 mcg/actuation 2 puff inhalation Q4-6H PRN 08/05/23 aerosol inhaler (Ventolin HFA) wheezing #18 grams diltiazem HCl 120 mg 120 mg PO BID #180 caps 09/28/23 capsule,extended release 12 hr Allergies Allergy/AdvReac Type Severity Reaction Status Date / Time cephalexin [From KEFLEX] AdvReac Intermediate rash Verified 03/09/24 08:12 morphine [MORPHINE] AdvReac Intermediate rash Verified 03/09/24 08:12 high dose flu shot Allergy Throat Uncoded 02/10/24 10:16 closing, madhuriness Review of Systems Review of Systems ROS Unobtainable: All systems reviewed & are unremarkable except as noted in HPI and below Patient History Medical History Seasonal allergies Upper back pain Elevated blood pressure reading Heartburn Asthma Chronic rhinosinusitis Mixed hyperlipidemia Family history of cardiovascular disease Seasonal allergic rhinitis due to pollen Surgical History History of ankle surgery History of replacement of both shoulder joints Status post appendectomy Status post knee surgery Family History Father Leukemia Cancer Social History household members: none Smoking Status: Never smoker second hand exposure: No alcohol intake: current substance use type: does not use Smoking Status: Never smoker alcohol intake frequency: a few times a week Exam Initial Vital Signs Initial Vital Signs: Vital Signs Temperature 98.2 F 03/09/24 08:06 Pulse Rate 64 03/09/24 08:06 Respiratory Rate 14 03/09/24 08:06 Blood Pressure 186/84 H 03/09/24 08:06 Pulse Oximetry 99 03/09/24 08:06 Oxygen Delivery Method Room Air 03/09/24 08:06 Const General: cooperative, comfortable and No ill appearing HENMT Head: normal to inspection and normocephalic Resp Effort & Inspection: normal respiratory effort Auscultation: clear to auscultation bilaterally Cardio Rate: regular rate Rhythm: regular rhythm Skin General: no rashes or lesions noted Neuro General: patient alert, patient awake and moves all extremities Extrem General: normal to inspection and capillary refill normal Course Orders Ordered: ED Orders 03/09/24 08:08 EKG-12 Lead Stat 03/09/24 08:09 XR chest 1V Stat 03/09/24 08:10 Complete Blood Count AUTO DIFF Stat Comprehensive Metabolic Panel Stat Magnesium Stat Troponin & CK Cardiac Panel Stat 03/09/24 10:10 Troponin & CK Cardiac Panel Stat Vital Signs Vital signs: Vital Signs - 8 hr 03/09/24 08:06 Temperature 98.2 F Pulse Rate 64 Respiratory Rate 14 Blood Pressure 186/84 H Pulse Oximetry 99 Oxygen Delivery Method Room Air MDM - Chest Pain Medical Records Data Attestation: I reviewed the patient's medical records. Lab Data Attestation: I reviewed the patient's lab results. 03/09/24 08:10 03/09/24 08:10 Labs: Lab Results 03/09/24 03/09/24 Range/Units 08:10 10:10 WBC 6.1 (4.5-11.0) X10^3/uL RBC 4.41 (4.0-5.2) X10^6/uL Hgb 13.1 (12.0-16.0) g/dL Hct 39.8 (36-46) % MCV 90.2 (80-100) fL MCH 29.7 (26-34) PG MCHC 33.0 (30-36) % RDW 14.0 (11.6-14.8) % Plt Count 259 (150-400) X10^3/uL Neut % (Auto) 66.6 (50-75) % Lymph % (Auto) 23.4 L (25-40) % [place] % (Auto) 7.5 (3-14) % Eos % (Auto) 1.9 L (2-4) % Baso % (Auto) 0.6 (0-2) % Neut # (Auto) 4100 (4921-8435) /uL Lymph # (Auto) 1400 (0131-4517) /uL [place] # (Auto) 500 (0-900) /uL Eos # (Auto) 100 (0-450) /uL Baso # (Auto) 0 (0-100) /uL Sodium 137 (137-145) mmol/L Potassium 4.1 (3.4-5.1) mmol/L Chloride 104 (98-107) mmol/L Carbon Dioxide 27 (22-32) mmol/L BUN 17 (7-17) mg/dL Creatinine 0.89 (0.52-1.04) mg/dL Estimated GFR > 60 (>60) mL/min BUN/Creatinine Ratio 19.1 (6-22) Glucose 125 H (80-110) mg/dL Calcium 9.2 (8.4-10.2) mg/dL Magnesium 2.0 (1.6-2.3) mg/dL Total Bilirubin 0.2 (0.2-1.3) mg/dL AST 59 H (14-36) IU/L ALT 54 H (<35) IU/L Alkaline Phosphatase 106 (38-126) U/L Total Creatine Kinase 102 89 (30-135) U/L Troponin I < 0.012 < 0.012 (0.01-0.034) ng/mL Total Protein 6.7 (6.3-8.2) g/dL Albumin 4.2 (3.5-5.0) g/dL Globulin 2.5 (1.7-4.1) g/dL Albumin/Globulin Ratio 1.7 (1.0-2.8) Imaging Data Chest x-ray: Radiologist's Impression: PROCEDURE: XR CHEST 1V INDICATIONS: chest pain TECHNIQUE: One view of the chest was acquired. COMPARISON: [facility], CR, XR CHEST 1V, 12/21/2023, 20:40. FINDINGS: Surgical changes and devices: Bilateral shoulder arthroplasties Lungs and pleura: Lungs are clear. No pleural effusions or pneumothorax. Mediastinum: Mediastinal contours appear normal. Heart size is normal. Bones and chest wall: No suspicious bony lesions. Overlying soft tissues appear unremarkable. IMPRESSION: No acute cardiopulmonary abnormality is seen. ECG Data Attestation: I personally reviewed and interpreted this ECG as follows: Interpretation: Sinus bradycardia Ventricular rate of 55 Left axis deviation Normal QRS No ST T wave changes MDM Narrative Medical decision making narrative: Patient was had 2- troponins. It was now asymptomatic. Sinus bradycardia on her EKG. Chest x-ray is unremarkable. Recommended that the patient follow-up with her primary care doctor for a follow-up to discuss a stress test. We will hold on admission to the hospital today as she can have this performed as an outpatient. She was given return precautions. She expressed understanding and agreement. Discharge Plan Departure Patient Disposition: Home Clinical Impression: Atypical chest pain Instructions: DI for Atypical Chest Pain Activity Restrictions/Additional Instructions: Recommend that you continue to take all of your medications as directed. I do recommend that you keep your scheduled appointment with your electromyographic technician. Recommend that you talk with your primary doctor about the indications for a stress test. Return to the emergency department for new symptoms. Prescriptions: No Action fluticasone propionate 110 mcg/actuation HFA aerosol inhaler inhalation omeprazole 20 mg capsule,delayed release(DR/EC) 20 mg PO DAILY Qty: 90 2RF cetirizine 10 MG tablet 10 mg PO QDAYP PRNQty: 0 multivitamin [Multiple Vitamins] 1 EACH tablet 1 tab PO QDAY Qty: 0 Eliquis 5 mg tablet 5 mg PO BID Qty: 60 2RF albuterol sulfate [Ventolin HFA] 90 mcg/actuation HFA aerosol inhaler 2 puff INHALATION Q4-6H PRN (Reason: wheezing) Qty: 18 3RF diltiazem HCl 120 mg capsule,extended release 12 hr 120 mg PO BID Qty: 180 2RF Fish Oil 1 cap PO .QDAY Referrals: Rocio Thomas MD [Primary Care Provider] - Stand Alone Forms: Patient Portal/API/Survey
[2024-03-09 08:38] LABS: Alanine Aminotransferase 54 IU/L (<35); Albumin 4.2 g/dL (3.5-5.0); Albumin Globulin Ratio 1.7 (1.0-2.8); Alkaline Phosphatase 106 U/L (38-126); Aspartate Aminotransferase 59 IU/L (14-36); BUN Creatinine Ratio 19.1 (6-22); Bilirubin Total 0.2 mg/dL (0.2-1.3); Blood Urea Nitrogen 17 mg/dL (7-17); Calcium 9.2 mg/dL (8.4-10.2); Carbon Dioxide 27 mmol/L (22-32); Chloride 104 mmol/L (98-107); Creatine Kinase 102 U/L (30-135); Estimated Glomerular Filt Rate > 60 mL/min (>60); Globulin 2.5 g/dL (1.7-4.1); Glucose 125 mg/dL (80-110); HEMOLYSIS < 15 (0-50); Potassium 4.1 mmol/L (3.4-5.1); Sodium 137 mmol/L (137-145); Total Protein 6.7 g/dL (6.3-8.2)
[2024-03-09 08:50] LABS: Troponin I < 0.012 ng/mL (0.01-0.034)
[2024-03-09 10:27] LABS: Creatine Kinase 89 U/L (30-135)
[2024-03-09 10:39] LABS: Troponin I < 0.012 ng/mL (0.01-0.034)
== END 2024-03-09 11:44 | disposition home or self-care (01) ==
PROVIDERS: Emergency Provider Emergency Medicine; PCP Family Medicine
DX: R07.89 Other chest pain (principal); Z79.01 Long term (current) use of anticoagulants
CPT/HCPCS: 36415; 71045; 80053; 82550; 83735; 84484; 85025; 93005; 99284

== ENCOUNTER → 2024-03-16 15:14 | Outpatient (CLI) | payer MEDICARE, OTHER, SELFPAY ==
[2023-11-09 11:03] VITALS: BMI 28.8
--- NOTE | 2024-03-16 17:48 | DI.NM.S_ITS ---
DATE OF SERVICE: 03/16/2024 EXERCISE TREADMILL STRESS TEST WITHOUT IMAGING ORDERING PROVIDER: Rocio Thomas MD INDICATIONS: The patient is a 78-year-old female with a history of paroxysmal atrial fibrillation, recently evaluated in the emergency department with atypical chest discomfort but with a normal evaluation. FINDINGS: 1. The patient was able to exercise for 9 minutes 7 seconds on a standard [place] protocol, suggesting exceptional exercise capacity with an KAITLIN of -77%, achieving 10.1 METS. 2. She had a normal heart rate response to exercise achieving a maximum heart rate of 146 bpm (102% of her predicted maximum). She had a borderline hypertensive blood pressure response with a resting blood pressure of 140/80, increasing to a maximum of 200/80. 3. She had no chest discomfort or anginal symptoms beyond moderate exertional dyspnea. 4. Her resting ECG shows sinus rhythm with normal ST segments. There are no obvious ST-segment shifts or arrhythmias with stress, although limited by marked motion artifact.Yet, there are no concerning changes on the immediate recovery tracings. IMPRESSION: 1. Normal exercise treadmill stress test for ischemia. 2. Exceptional exercise capacity without angina or obvious arrhythmias. She had a borderline hypertensive blood pressure response to exercise. Alicia Richmond - LEONARDO/alcides/BO doc#: [id number]/job#: [id number] dd: 03/16/2024 17:20:00 dt: 03/16/2024 17:27:00 DICTATING MD/COPIES TO: Cholo Portillo MD, Rocio Thomas MD COPIES MNE: SINAN;
== END ==
PROVIDERS: PCP Family Medicine; Referring Provider Family Medicine; Visit Provider Family Medicine
DX: R07.89 Other chest pain (principal); I48.91 Unspecified atrial fibrillation
CPT/HCPCS: 93017

== ENCOUNTER 2024-05-21 23:04 | Observation (INO) | payer MEDICARE, OTHER, SELFPAY ==
[2023-11-09 11:03] VITALS: BMI 28.8
[2024-05-21 23:11] VITALS: BP 194/89; PULSE 53; RESP 22; TEMP 36.3; O2SAT 98; BMI 24.0
[2024-05-21 23:12] VITALS: PULSE 57; RESP 22; O2SAT 98
--- NOTE | 2024-05-21 23:12 | EKG_ITS ---
[address] [address] Test Date: 2024-05-21 Pat Name: Alicia Richmond Department: Room: Gender: Female Logistics Tech: DENILSON LICEA : 1945 Requested By: Order Number: [id number] Reading MD: Gerhard Shipman Measurements Intervals [place] Rate: 57 P: 59 [place]: 198 QRS: -43 QRSD: 96 T: 29 QT: 428 QTc: 416 Interpretive Statements Sinus bradycardia Left axis deviation Minimal voltage criteria for LVH, may be normal variant ( [place] product ) Electronically Signed On 05-22-2024 7:44:32 PDT by Gerhard Shipman
--- NOTE | 2024-05-21 23:14 | DI.RAD.S_ITS ---
PROCEDURE: XR CHEST 1V INDICATIONS: chest pain TECHNIQUE: One view of the chest was acquired. COMPARISON: [facility], CR, XR CHEST 1V, 03/09/2024, 8:08. FINDINGS: Surgical changes and devices: Bilateral shoulder arthroplasty Lungs and pleura: Lungs are clear. No pleural effusions or pneumothorax. Mediastinum: Mediastinal contours appear normal. Heart size is normal. Aortic arch is calcified indicating atherosclerosis. Bones and chest wall: No suspicious bony lesions. Overlying soft tissues appear unremarkable. IMPRESSION: No acute cardiopulmonary abnormality is seen. Approved by: Leyla Becker M.D.,Ph.D. on 05/22/2024 at 0:11
[2024-05-21 23:24] LABS: Add Manual Diff / Slide Review NO; Basophils Absolute Auto 0 /uL (0-100); Basophils Percent Auto 0.7 % (0-2); Eosinophils Absolute Auto 100 /uL (0-450); Eosinophils Percent Auto 2.1 % (2-4); Hematocrit 38.3 % (36-46); Hemoglobin 12.6 g/dL (12.0-16.0); Lymphocytes Absolute Auto 1600 /uL (1100-4500); Lymphocytes Percent Auto 28.9 % (25-40); Mean Corpuscular HGB Conc 32.9 % (30-36); Mean Corpuscular Hemoglobin 29.4 PG (26-34); Mean Corpuscular Volume 89.5 fL (80-100); Monocytes Absolute Auto 600 /uL (0-900); Monocytes Percent Auto 10.8 % (3-14); Neutrophils Absolute Auto 3200 /uL (1500-7000); Neutrophils Percent Auto 57.5 % (50-75); Platelet Count 231 X10^3/uL (150-400); Red Blood Cell Count 4.28 X10^6/uL (4.0-5.2); Red Cell Distribution Width 14.6 % (11.6-14.8); White Blood Cell Count 5.5 X10^3/uL (4.5-11.0)
[2024-05-21 23:30] VITALS: BP 193/88; PULSE 54; RESP 13; O2SAT 97
--- NOTE | 2024-05-21 23:30 | ED.CHESTPAIN ---
HPI - Chest Pain General Chief Complaint: Chest Pain Stated Complaint: Chest pain Time Seen by Provider: 05/21/24 23:18 Source: patient Mode of arrival: Ambulatory Limitations: no limitations History of Present Illness HPI narrative: Patient is a 78-year-old female history of atrial fibrillation recently just started bisoprolol to control atrial fibrillation on Eliquis presenting today with a variety of symptoms. She reports feeling pretty severe indigestion epigastric pain and chest pain tonight. She is overall really confused. She also reports that she has been unable to lift her right arm for a couple of days. She previously had right arm and shoulder repair replacement. But she was to be able to lift it she has no numbness or tingling. He actually does not look over to the right side but has no other weaknesses. Related Data Home Medications Medication Instructions Recorded Confirmed cetirizine 10 mg tablet 10 mg PO PRN PRN Allergic Symptoms 06/03/16 05/22/24 ##0 multivitamin (Multiple Vitamins 1 tab PO QDAY ##0 12/16/16 05/22/24 tablet) fluticasone propionate 110 See Rx Instructions .Route 08/30/23 05/22/24 mcg/actuation HFA aerosol inhaler .COMPLEX PRN asthma bisoprolol fumarate 5 mg tablet 5 mg PO DAILY 05/22/24 05/22/24 Previous Rx's Medication Instructions Recorded omeprazole 20 mg capsule,delayed 20 mg PO DAILY #90 caps 05/28/23 release apixaban 5 mg tablet (Eliquis) 5 mg PO BID #60 tabs 06/30/23 Allergies Allergy/AdvReac Type Severity Reaction Status Date / Time cephalexin [From KEFLEX] AdvReac Intermediate rash Verified 04/17/24 07:55 morphine [MORPHINE] AdvReac Intermediate rash Verified 04/17/24 07:55 high dose flu shot Allergy Throat Uncoded 04/17/24 07:55 closing, hoarsness Patient History Medical History Seasonal allergies Upper back pain Elevated blood pressure reading Heartburn Asthma Chronic rhinosinusitis Mixed hyperlipidemia Family history of cardiovascular disease Seasonal allergic rhinitis due to pollen Surgical History History of ankle surgery History of replacement of both shoulder joints Status post appendectomy Status post knee surgery Family History Father Leukemia Cancer Social History household members: none Smoking Status: Never smoker second hand exposure: No alcohol intake: current substance use type: does not use Smoking Status: Never smoker alcohol intake frequency: a few times a week Exam Initial Vital Signs Initial Vital Signs: Vital Signs Temperature 97.4 F L 05/21/24 23:11 Pulse Rate 53 L 05/21/24 23:11 Respiratory Rate 22 05/21/24 23:11 Blood Pressure 194/89 H 05/21/24 23:11 Pulse Oximetry 98 05/21/24 23:11 Oxygen Delivery Method Room Air 05/21/24 23:11 GENERAL: Alert confused 78-year-old female and in no acute distress. HEENT: Head atraumatic,EOMI, pupils reactive, face symmetric, moist mucous membranes CARDIOVASCULAR: Regular rate and rhythm without murmurs, rubs or gallops. RESPIRATORY: Breath sounds equal bilaterally, no wheezes rales or rhonchi. ABDOMEN: Soft, nontender. Normoactive bowel sounds all 4 quadrants. No guarding or rebound. EXTREMITIES: Normal range of motion, no clubbing or edema. Neurovascularly intact Right upper extremity she does have a scar in the right shoulder she was moving her hand wrist and elbow peripheral pulses are intact difficult to lift her shoulder NEUROLOGICAL: Alert and oriented x3.Normal gait and speech. Right arm weakness no change in sensation Good lasihc-zm-voar with left arm, good fixq-nt-giki, strength equal bilaterally, no dysarthria or aphasia, sensation in tact to soft touch bilaterally, no visual changes, no facial droop SKIN: Warm, dry, no laceration, no petechiae, no rashes or lesions. Scores NIH Stroke Scale Level of Conciousness: Alert, keenly responsive Ask month/age: Answers both questions correctly. Open/close eyes, close hand: Performs both tasks correctly Best gaze horizontal: Normal Visual [place]: No visual loss Facial palsy: Normal symetrical movement Left arm drift: No drift for full 10 sec Right arm drift: Some effort against gravity, cannot maintain, drifts down to bed Left leg drift: No drift for full 5 sec Right leg drift: No drift for full 5 sec Limb ataxia: Absent Sensory on face/arms/legs: Normal, no sensory loss Best language: No aphasia, normal Dysarthria: Normal Extinction or inattention: No abnormality Total NIH Stroke scale score: 2 Course Orders Ordered: ED Orders 05/21/24 23:07 EKG-12 Lead Stat 05/21/24 23:14 XR chest 1V Stat 05/21/24 23:17 Complete Blood Count AUTO DIFF Stat Comprehensive Metabolic Panel Stat Lactate (Lactic Acid) Stat Lipase Stat Magnesium Stat NT-proBNP (BNP-Adult 18+) Stat PTT Partial Thromboplastin Sánchez Stat Prothrombin Time INR Stat Troponin & CK Cardiac Panel Stat 05/21/24 23:39 CT angio head and neck Stat CT head/brain wo con Stat 05/22/24 00:05 UA Complete [Urinalysis and Microscopic] Stat Urine Culture Stat 05/22/24 01:54 EKG-12 Lead Stat 05/22/24 01:55 Trop I [Troponin I] Stat Acetaminophen (Acetaminophen 325 Mg Tablet) 650 mg PO Q6H PRN PRN Reason: Fever/Mild Pain (1-3) Apixaban (Apixaban 5 Mg Tablet) 5 mg PO BID SAHIL Naloxone HCl (Naloxone 0.4 Mg/Ml Vial) 0.2 mg IV Q2MIN PRN PRN Reason: Opiate Reversal Non-Formulary Medication (Diltiazem Hcl) 120 mg PO BID [facility] Ondansetron HCl (Ondansetron 4 Mg/2 Ml Inj) 4 mg IV Q4HR PRN PRN Reason: nausea Pantoprazole Sodium (Pantoprazole Dr 20 Mg Tablet) 20 mg PO DAILY SAHIL Discontinued Medications Aspirin (Aspirin 81 Mg Chew Tab) 324 mg PO NOW ONE Stop: 05/21/24 23:15 Last Admin: 05/21/24 23:49 Dose: 324 mg Documented By: AMEE Vital Signs Vital signs: Vital Signs - 8 hr 05/21/24 23:11 05/21/24 23:11 05/21/24 23:12 Temperature 97.4 F L Pulse Rate 53 L 57 L Respiratory Rate 22 22 Blood Pressure 194/89 H 194/89 H Pulse Oximetry 98 98 Oxygen Delivery Method Room Air 05/21/24 23:30 05/21/24 23:30 05/22/24 00:00 Temperature Pulse Rate 54 L 52 L Respiratory Rate 13 14 Blood Pressure 193/88 H Pulse Oximetry 97 96 Oxygen Delivery Method 05/22/24 00:19 05/22/24 00:19 05/22/24 00:34 Temperature Pulse Rate 51 L 60 Respiratory Rate Blood Pressure 197/87 H Pulse Oximetry 98 95 Oxygen Delivery Method Room Air 05/22/24 00:34 05/22/24 01:05 05/22/24 01:05 Temperature Pulse Rate 54 L Respiratory Rate 18 Blood Pressure 198/78 H 161/71 H Pulse Oximetry 96 Oxygen Delivery Method 05/22/24 02:00 05/22/24 02:03 05/22/24 02:03 Temperature Pulse Rate 58 L 56 L Respiratory Rate 23 11 L Blood Pressure 193/84 H Pulse Oximetry 98 97 Oxygen Delivery Method 05/22/24 02:30 05/22/24 02:31 05/22/24 02:31 Temperature Pulse Rate 62 60 Respiratory Rate 34 H 35 H Blood Pressure 138/75 Pulse Oximetry 92 95 Oxygen Delivery Method 05/22/24 02:40 05/22/24 02:40 Temperature Pulse Rate 54 L Respiratory Rate 17 Blood Pressure 185/88 H Pulse Oximetry 98 Oxygen Delivery Method MDM - Chest Pain Lab Data 05/21/24 23:17 05/21/24 23:17 Labs: Lab Results 05/21/24 05/22/24 05/22/24 Range/Units 23:17 00:05 01:55 WBC 5.5 (4.5-11.0) X10^3/uL RBC 4.28 (4.0-5.2) X10^6/uL Hgb 12.6 (12.0-16.0) g/dL Hct 38.3 (36-46) % MCV 89.5 (80-100) fL MCH 29.4 (26-34) PG MCHC 32.9 (30-36) % RDW 14.6 (11.6-14.8) % Plt Count 231 (150-400) X10^3/uL Neut % (Auto) 57.5 (50-75) % Lymph % (Auto) 28.9 (25-40) % [place] % (Auto) 10.8 (3-14) % Eos % (Auto) 2.1 (2-4) % Baso % (Auto) 0.7 (0-2) % Neut # (Auto) 3200 (3588-9506) /uL Lymph # (Auto) 1600 (2850-8249) /uL [place] # (Auto) 600 (0-900) /uL Eos # (Auto) 100 (0-450) /uL Baso # (Auto) 0 (0-100) /uL PT 13.4 H (9.4-12.5) SECONDS INR 1.2 (0.9-1.3) APTT 41 H (25.1-36.5) SECONDS Sodium 138 (137-145) mmol/L Potassium 4.5 (3.4-5.1) mmol/L Chloride 104 (98-107) mmol/L Carbon Dioxide 26 (22-32) mmol/L BUN 25 H (7-17) mg/dL Creatinine 0.78 (0.52-1.04) mg/dL Estimated GFR > 60 (>60) mL/min BUN/Creatinine Ratio 32.1 H (6-22) Glucose 116 H (80-110) mg/dL Lactate 0.8 (0.7-2.1) mmol/L Calcium 9.4 (8.4-10.2) mg/dL Magnesium 2.0 (1.6-2.3) mg/dL Total Bilirubin 0.2 (0.2-1.3) mg/dL AST 64 H (14-36) IU/L ALT 59 H (<35) IU/L Alkaline Phosphatase 115 (38-126) U/L Total Creatine Kinase 132 (30-135) U/L Troponin I < 0.012 0.024 (0.01-0.034) ng/mL NT-Pro-B Natriuret Pep 321 (<450) pg/mL Total Protein 6.7 (6.3-8.2) g/dL Albumin 4.0 (3.5-5.0) g/dL Globulin 2.7 (1.7-4.1) g/dL Albumin/Globulin Ratio 1.5 (1.0-2.8) Lipase 201 (23-300) U/L Urine Color Yellow Urine Appearance Clear Urine pH 6.0 (4.5-8.0) Ur Specific [place] <=1.005 (1.000-1.035) Urine Protein Negative (Negative) Urine Glucose (UA) Negative (Negative) g/dL Urine Ketones Negative (NEGATIVE) Urine Occult Blood 1+ H (Negative) Urine Nitrate Negative (Negative) Urine Bilirubin Negative (NEGATIVE) Urine Urobilinogen 0.2 (0.2) E.U./dL Ur Leukocyte Esterase 1+ H (NEGATIVE) Urine RBC 1-5/hpf (0-5/HPF) Urine WBC 1-5/hpf (0-5/HPF) Ur Squamous Epith Cells 1-5 /hpf (0-5/HPF) Ur Transition Epith Cell 1-5/hpf (0-5/HPF) Urine Bacteria Moderate (10-30) H (None) Ur Culture Indicated? Specimen cultured Vol Urine Centrifuged 10ml (spun) Imaging Data Chest x-ray: Radiologist's Impression: PROCEDURE: XR CHEST 1V INDICATIONS: chest pain TECHNIQUE: One view of the chest was acquired. COMPARISON: [facility], , XR CHEST 1V, 03/09/2024, 8:08. FINDINGS: Surgical changes and devices: Bilateral shoulder arthroplasty Lungs and pleura: Lungs are clear. No pleural effusions or pneumothorax. Mediastinum: Mediastinal contours appear normal. Heart size is normal. Aortic arch is calcified indicating atherosclerosis. Bones and chest wall: No suspicious bony lesions. Overlying soft tissues appear unremarkable. IMPRESSION: No acute cardiopulmonary abnormality is seen. Approved by: Leyla Becker M.D.,Ph.D. on 05/22/2024 at 0:11 ECG Data Attestation: I personally reviewed and interpreted this ECG as follows: Prior ECG tracings: available for review Interpretation: Sinus rhythm rate 57 MN interval 198 QRS [address] changes improve previous EKGs she was she does not persistent T-wave inversion noted in lead 3 which is similar to prior EKGs EKG 2. Sinus rhythm rate 57 MN interval 214 QRS 90 QTC 430 MDM Narrative Medical decision making narrative: MDM CC: Chest discomfort confusion Complicating co-morbidities: Atrial fibrillation on Eliquis Corroborating data: [ ] Data collected from: Patient Medical records reviewed: PCP visit 04/17/2024 Differential considered: Sepsis intracranial hemorrhage CVA Exam documented above, pertinent findings include: Confused 78-year-old female she has weakness in her right arm definitely starts at the shoulder he has good consumer loan processor strength bilaterally no facial droop. Lab Test results independently reviewed as above. Pertinent findings: CBC no leukocytosis no anemia Coags are negative CMP no electrolyte abnormality no CONCHITA creatinine 0.78, glucose 116 Bilirubin within normal limits 0.2 slight elevation AST is 64 ALT 59, lipase normal Lactate 0.8 Troponin negative Independently reviewed EKG as above sinus rhythm no significant changes or ischemia Imaging studies independently reviewed: Chest x-ray no acute cardiopulmonary process Head CT no acute intracranial process CT angio no large vessel occlusion Consultations: Dr. Mackay accepts patient Treatments: [ ] Re-evaluations: Patient still seems a little confused. She actually reports that she has a right shoulder chronic issue for aggressively getting worse over last couple of weeks. 1 of her doctor says she has a neurologic issue with her shoulder sometimes she can move it. Her mental status just does not seem quite right or normal Discussion: Patient 78-year-old female history of atrial fibrillation on Eliquis presents today with confusion and some right shoulder arm weakness which have been ongoing for couple of days. Difficult to tell what is going on she is also having this chest burning sensation which he feels like his epigastric indigestion. But she just feels like something is off can not really pinpoint it. Blood work is overall reassuring no evidence of infection Blood pressure is noted to be quite elevated but she has no evidence of hypertensive emergency Difficult to tell what patient's baseline mental status is she does seem to be little confused but is A&O x4. Right arm weakness also difficult to tell if this is chronic right shoulder issue which has gotten worse over the last 1-2 weeks versus CVA. CTs for negative. He has not having any further chest pain no changes her EKGs troponins remain negative Discharge Plan Departure Patient Disposition: Admitted as Observation Clinical Impression: Brain TIA, Chest pain Admit Date/Time: 05/22/24 02:51 Admit Provider: Herber Napier
--- NOTE | 2024-05-21 23:33 | PC.NURSE ---
Addendum entered by Nancy Bhatti R.N. 05/21/24 23:59: Pt reports going to lunch today with a friend and stating she couldn't pick her up because she didn't know where she lived. The friend told her that was odd because she had been there a zillion times. When she talked to her niece celeste she reports her niece said she sounded stressed and different. Pt reports something not right and also reports recent anniversary of her 's passing. Call light within reach and encouraged to use for needs. Original Note: Pt reports being confused and stressed out. She is alert and oriented to person, place, situation. At times speech stops and patient intently thinks of next words. BEFAST neg. Provider made aware.
[2024-05-21 23:34] LABS: INR 1.2 (0.9-1.3); Prothrombin Time 13.4 SECONDS (9.4-12.5)
[2024-05-21 23:37] LABS: PTT Partial Thromboplastin Tim 41 SECONDS (25.1-36.5)
[2024-05-21 23:38] LABS: Alanine Aminotransferase 59 IU/L (<35); Albumin Globulin Ratio 1.5 (1.0-2.8); Alkaline Phosphatase 115 U/L (38-126); Aspartate Aminotransferase 64 IU/L (14-36); BUN Creatinine Ratio 32.1 (6-22); Bilirubin Total 0.2 mg/dL (0.2-1.3); Blood Urea Nitrogen 25 mg/dL (7-17); Calcium 9.4 mg/dL (8.4-10.2); Carbon Dioxide 26 mmol/L (22-32); Chloride 104 mmol/L (98-107); Creatine Kinase 132 U/L (30-135); Estimated Glomerular Filt Rate > 60 mL/min (>60); Globulin 2.7 g/dL (1.7-4.1); Glucose 116 mg/dL (80-110); HEMOLYSIS < 15 (0-50); Lipase 201 U/L (23-300); Potassium 4.5 mmol/L (3.4-5.1); Sodium 138 mmol/L (137-145); Total Protein 6.7 g/dL (6.3-8.2)
--- NOTE | 2024-05-21 23:39 | DI.CT.S_ITS ---
PROCEDURE: CT ANGIO HEAD AND NECK INDICATIONS: right arm weakness TECHNIQUE: After the administration of intravenous contrast, 1 mm thick sections acquired from the aortic arch through the [place]. 3-dimensional jklgiok-dgbzwpect-dbtjqivocd (MIP) and/or volume rendering reformats were acquired of the central intracranial vasculature and neck separately. For radiation dose reduction, the following was used: automated exposure control, adjustment of mA and/or kV according to patient size. COMPARISON: None. FINDINGS: Image quality: Diagnostic. BRAIN: CSF spaces: Ventricles are normal in size and shape. Basal cisterns are patent. No extra-axial fluid collections. Brain: No significant abnormality of the brain can be seen. Skull and face: Calvarium and facial bones appear intact, without suspicious lesions. Orbits appear normal. Sinuses: Sinuses and mastoids are clear. HEAD CT ANGIOGRAPHY: Anterior circulation: Intracranial internal carotid arteries are normal in size and flow. The flow within the paired anterior cerebral arteries is normal and symmetric. The flow within the middle cerebral arteries is normal and symmetric. The anterior communicating artery is seen. No aneurysms are seen. Posterior circulation: Visualized portions of the vertebral arteries demonstrate normal caliber, and join to form a normal appearing basilar artery. Flow within the posterior cerebral arteries is normal and symmetric. No aneurysms are seen. NECK CT ANGIOGRAPHY: Carotid system: The great vessels demonstrate a conventional anatomy as they arise from the aortic arch. The origins of the common carotid arteries appear patent. The common carotid arteries demonstrate normal caliber and courses. The bifurcation regions are both widely patent. The internal carotid arteries demonstrate normal calibers and courses. Posterior circulation: The origins of the vertebral arteries both appear widely patent. The more superior extracranial portions of both vertebral arteries also demonstrate normal courses and calibers. They join to form a normal appearing basilar artery. Soft tissues: Visualized neck soft tissues demonstrate no suspicious abnormalities. Bones: No suspicious bony lesions. 5 mm anterolisthesis of C7 on T1. No acute vertebral body compression fracture. IMPRESSION: No significant intracranial arterial abnormality is seen. No significant abnormality is seen within the arteries of the neck. Any quantitative measurements of stenosis were performed using NASCET criteria. Approved by: Leyla Becker M.D.,Ph.D. on 05/22/2024 at 1:42
--- NOTE | 2024-05-21 23:39 | DI.CT.S_ITS ---
PROCEDURE: CT HEAD/BRAIN WO CON INDICATIONS: right arm weakness TECHNIQUE: Noncontrast 4.5 mm thick angled axial sections acquired from the foramen magnum to the vertex, with coronal and sagittal reformats. For radiation dose reduction, the following was used: automated exposure control, adjustment of mA and/or kV according to patient size. COMPARISON: [facility], CT, CT HEAD/BRAIN WO CON, 08/12/2021, 8:40. FINDINGS: Image quality: Diagnostic. CSF spaces: Basal cisterns are patent. No extra-axial fluid collections. The ventricles are symmetric in size and shape. Brain: No intracranial bleeds or masses. There is cerebral volume loss for age, with resultant ventricular and sulcal prominence. There are periventricular and deep white matter chronic small vessel ischemic changes. There is intracranial internal carotid artery atherosclerosis. Skull and face: Calvarium and visualized facial bones appear intact, without suspicious lesions. Sinuses: Visualized sinuses and mastoids are clear. IMPRESSION: No acute intracranial pathology. Approved by: Leyla Becker M.D.,Ph.D. on 05/22/2024 at 1:36
[2024-05-21 23:40] LABS: Lactate (Lactic Acid) 0.8 mmol/L (0.7-2.1)
[2024-05-21] MEDS: ASPIRIN 81 MG CHEW TAB 324 MG PO (23:49)
[2024-05-21 23:50] LABS: NT-proBNP (BNP-Adult 18+) 321 pg/mL (<450); Troponin I < 0.012 ng/mL (0.01-0.034)
[2024-05-22] VITALS (12 sets, daily range): BP systolic 138–198; BP diastolic 71–90; PULSE 50–62; RESP 11–35; TEMP 36.2; O2SAT 92–98; BMI 24.0
--- NOTE | 2024-05-22 01:54 | EKG_ITS ---
[address] [id number] Test Date: 2024-05-22 Pat Name: Alicia Richmond Department: Room: Gender: Female Technical Operations Manager: DENILSON LICEA : 1945 Requested By: Order Number: [id number] Reading MD: Gerhard Shipman Measurements Intervals [place] Rate: 57 P: 49 CT: 214 QRS: -43 QRSD: 98 T: 28 QT: 442 QTc: 430 Interpretive Statements Sinus bradycardia with 1st degree AV block Left axis deviation Minimal voltage criteria for LVH, may be normal variant ( Eulalio product ) Electronically Signed On 05-22-2024 7:44:46 PDT by Gerhard Shipman
[2024-05-22 02:15] LABS: Appearance Urine UA CLEAR; Bilirubin Urine UA NEGATIVE (NEGATIVE); Color Urine UA YELLOW; Glucose Urine UA NEGATIVE (Negative); Ketones Urine UA NEGATIVE (NEGATIVE); Leukocyte Esterase Urine UA 1+ (NEGATIVE); Nitrite Urine UA NEGATIVE (Negative); Occult Blood Urine UA 1+ (Negative); Protein Urine UA NEGATIVE (Negative); Specific Gravity Urine UA <=1.005 (1.000-1.035); Urobilinogen Urine UA 0.2 E.U./dL (0.2)
[2024-05-22 02:22] LABS: Troponin I 0.024 ng/mL (0.01-0.034)
[2024-05-22 02:26] LABS: Urine Volume 10mL (spun)
[2024-05-22 02:29] LABS: Bacteria Urine Moderate (10-30); RBC Urine 1-5/HPF (0-5/HPF); Squamous Epithelial Cell Urine 1-5 /HPF (0-5/HPF); Transitional Epi Cells Urine 1-5/HPF (0-5/HPF); WBC Urine 1-5/HPF (0-5/HPF)
[2024-05-22 02:30] LABS: Culture Indicated Urine Specimen Cultured
--- NOTE | 2024-05-22 03:40 | PM.HP.1 ---
History of Present Illness History of Present Illness Date Patient Seen: 05/22/24 Chief complaint: Chest pain Narrative: 78 by/o with PMH of A-fib, HTN, HLD, GERD, presented to ER with epigastric or chest pain. ED workup non-revealing. Additional complaints on Rt arm weakness. Without evidence of stroke. Confused, however. Placed in observation. [facility] Medical History Seasonal allergies Upper back pain Elevated blood pressure reading Heartburn Asthma Chronic rhinosinusitis Mixed hyperlipidemia Family history of cardiovascular disease Seasonal allergic rhinitis due to pollen Surgical History History of ankle surgery History of replacement of both shoulder joints Status post appendectomy Status post knee surgery Family History Father Leukemia Cancer Social History household members: none Smoking Status: Never smoker second hand exposure: No alcohol intake: current substance use type: does not use Meds Home Medications and Allergies Home Medications Medication Instructions Recorded Confirmed Type cetirizine 10 mg tablet 10 mg PO PRN PRN Allergic Symptoms 06/03/16 05/22/24 History ##0 multivitamin (Multiple Vitamins 1 tab PO QDAY ##0 12/16/16 05/22/24 History tablet) omeprazole 20 mg capsule,delayed 20 mg PO DAILY #90 caps 05/28/23 05/22/24 Rx release apixaban 5 mg tablet (Eliquis) 5 mg PO BID #60 tabs 06/30/23 05/22/24 Rx fluticasone propionate 110 See Rx Instructions .Route 08/30/23 05/22/24 History mcg/actuation HFA aerosol inhaler .COMPLEX PRN asthma bisoprolol fumarate 5 mg tablet 5 mg PO DAILY 05/22/24 05/22/24 History Allergies Allergy/AdvReac Type Severity Reaction Status Date / Time cephalexin [From KEFLEX] AdvReac Intermediate rash Verified 04/17/24 07:55 morphine [MORPHINE] AdvReac Intermediate rash Verified 04/17/24 07:55 high dose flu shot Allergy Throat Uncoded 04/17/24 07:55 closing, hoarsness Review of Systems Review of Systems Narrative: CVS - chest pain MSK - Rt shoulder pain Neuro - Rt arm weakness Psych - anxiety Exam Vital Signs (past 8 hours): - 05/21/24 23:11 05/21/24 23:11 05/21/24 23:12 Temperature 97.4 F L Pulse Rate 53 L 57 L Respiratory Rate 22 22 Blood Pressure 194/89 H 194/89 H Pulse Oximetry 98 98 Oxygen Delivery Method Room Air Oxygen Flow Rate 05/21/24 23:30 05/21/24 23:30 05/22/24 00:00 Temperature Pulse Rate 54 L 52 L Respiratory Rate 13 14 Blood Pressure 193/88 H Pulse Oximetry 97 96 Oxygen Delivery Method Oxygen Flow Rate 05/22/24 00:19 05/22/24 00:19 05/22/24 00:34 Temperature Pulse Rate 51 L 60 Respiratory Rate Blood Pressure 197/87 H Pulse Oximetry 98 95 Oxygen Delivery Method Room Air Oxygen Flow Rate 05/22/24 00:34 05/22/24 01:05 05/22/24 01:05 Temperature Pulse Rate 54 L Respiratory Rate 18 Blood Pressure 198/78 H 161/71 H Pulse Oximetry 96 Oxygen Delivery Method Oxygen Flow Rate 05/22/24 02:00 05/22/24 02:03 05/22/24 02:03 Temperature Pulse Rate 58 L 56 L Respiratory Rate 23 11 L Blood Pressure 193/84 H Pulse Oximetry 98 97 Oxygen Delivery Method Oxygen Flow Rate 05/22/24 02:30 05/22/24 02:31 05/22/24 02:31 Temperature Pulse Rate 62 60 Respiratory Rate 34 H 35 H Blood Pressure 138/75 Pulse Oximetry 92 95 Oxygen Delivery Method Oxygen Flow Rate 05/22/24 02:40 05/22/24 02:40 05/22/24 03:00 Temperature Pulse Rate 54 L 50 L Respiratory Rate 17 23 Blood Pressure 185/88 H Pulse Oximetry 98 96 Oxygen Delivery Method Oxygen Flow Rate 05/22/24 03:00 05/22/24 03:20 Temperature 97.2 F L Pulse Rate 54 L Respiratory Rate 20 Blood Pressure 195/90 H 178/75 H Pulse Oximetry 96 Oxygen Delivery Method Oxygen Flow Rate 0 Oxygen Delivery Method Room Air Oxygen Flow Rate 0 Narrative Exam Narrative: General - in no distress, hyper alert Psych - impaired memory, attention, appears anxious. Not delusional. Neuro - w/o focal muscle weakness CVS - bradycardic RS - tachypneic Objective ECG Impression: Sinus bradycardia - 57 1st degree AV block - 214 Left axis deviation Minimal voltage criteria for LVH Imaging Chest x-ray: My impression: Without infiltrates or cardiomegaly Radiologist's impression: No acute cardiopulmonary abnormality is seen. CT scan - head: Radiologist's impression: CTH - No acute intracranial pathology. CTA H&N - No significant intracranial arterial abnormality is seen. No significant abnormality is seen within the arteries of the neck. Labs 05/22/24 06:18 05/21/24 23:17 Labs: Laboratory Results - last 24 hr 05/21/24 05/22/24 05/22/24 23:17 00:05 01:55 WBC 5.5 RBC 4.28 Hgb 12.6 Hct 38.3 MCV 89.5 MCH 29.4 MCHC 32.9 RDW 14.6 Plt Count 231 Neut % (Auto) 57.5 Lymph % (Auto) 28.9 [place] % (Auto) 10.8 Eos % (Auto) 2.1 Baso % (Auto) 0.7 Neut # (Auto) 3200 Lymph # (Auto) 1600 [place] # (Auto) 600 Eos # (Auto) 100 Baso # (Auto) 0 PT 13.4 H INR 1.2 APTT 41 H Sodium 138 Potassium 4.5 Chloride 104 Carbon Dioxide 26 BUN 25 H Creatinine 0.78 Estimated GFR > 60 BUN/Creatinine Ratio 32.1 H Glucose 116 H Lactate 0.8 Calcium 9.4 Magnesium 2.0 Total Bilirubin 0.2 AST 64 H ALT 59 H Alkaline Phosphatase 115 Total Creatine Kinase 132 Troponin I < 0.012 0.024 NT-Pro-B Natriuret Pep 321 Total Protein 6.7 Albumin 4.0 Globulin 2.7 Albumin/Globulin Ratio 1.5 Lipase 201 Urine Color Yellow Urine Appearance Clear Urine pH 6.0 Ur Specific [place] <=1.005 Urine Protein Negative Urine Glucose (UA) Negative Urine Ketones Negative Urine Occult Blood 1+ H Urine Nitrate Negative Urine Bilirubin Negative Urine Urobilinogen 0.2 Ur Leukocyte Esterase 1+ H Urine RBC 1-5/hpf Urine WBC 1-5/hpf Ur Squamous Epith Cells 1-5 /hpf Ur Transition Epith Cell 1-5/hpf Urine Bacteria Moderate (10-30) H Ur Culture Indicated? Specimen cultured Vol Urine Centrifuged 10ml (spun) Assessment & Plan Assessment and plan (1) Altered mental status: Status: Acute (2) Chest pain: Status: Acute (3) Hypertension: Qualifiers: Hypertension type: primary hypertension Qualified Code(s): I10 - Essential (primary) hypertension Status: Acute (4) HLD (hyperlipidemia): Status: Acute (5) GERD (gastroesophageal reflux disease): Status: Acute Assessment & Plan narrative: Altered Mental Status - placed in observation for acute confusion - w/o evidence of CVA - TIA not likely either but possible - hypertensive on admission, possibly with hypertensive encephalopathy - anxious as well, at moments appears manic - prn Xanax Chest pain - w/o evidence of ACS - monitored - possibly related to reflux / GERD HTN / A-fib - uncontrolled BP, rate < 60 - bisoprolol, diltiazem - Eliquis GERD - Protonix Time-Based Coding :: [TOTAL MINUTES] spent with patient and on the chart (including review of chart, obtaining history, exam, reviewing outside data, placing orders, documenting exam and treatment plan, and counseling patient) on [DATE].
[2024-05-22 06:37] LABS: Add Manual Diff / Slide Review NO; Basophils Absolute Auto 0 /uL (0-100); Basophils Percent Auto 0.7 % (0-2); Eosinophils Absolute Auto 100 /uL (0-450); Eosinophils Percent Auto 2.3 % (2-4); Hematocrit 37.8 % (36-46); Hemoglobin 12.3 g/dL (12.0-16.0); Lymphocytes Absolute Auto 1400 /uL (1100-4500); Lymphocytes Percent Auto 28.1 % (25-40); Mean Corpuscular HGB Conc 32.5 % (30-36); Mean Corpuscular Hemoglobin 29.2 PG (26-34); Mean Corpuscular Volume 89.9 fL (80-100); Monocytes Absolute Auto 600 /uL (0-900); Monocytes Percent Auto 11.7 % (3-14); Neutrophils Absolute Auto 2900 /uL (1500-7000); Neutrophils Percent Auto 57.2 % (50-75); Platelet Count 218 X10^3/uL (150-400); Red Cell Distribution Width 14.5 % (11.6-14.8); White Blood Cell Count 5.1 X10^3/uL (4.5-11.0)
[2024-05-22 08:44] LABS: Troponin I < 0.012 ng/mL (0.01-0.034)
--- NOTE | 2024-05-22 08:59 | DI.MRI.S_ITS ---
PROCEDURE: MR HEAD/BRAIN WO CON INDICATIONS: right arm weakness TECHNIQUE: Non-contrast axial T1 spin echo, axial T2 fast spin echo, sagittal and axial FLAIR, coronal T2 fast spin echo, axial gradient echo, axial diffusion and ADC through the brain. COMPARISON: [facility], CT, CT ANGIO HEAD AND NECK, 05/22/2024, 0:29. [facility], CT, CT HEAD/BRAIN WO CON, 05/22/2024, 0:09. FINDINGS: Image quality: Excellent. CSF spaces: Ventricles appear symmetric in size and shape. Basal cisterns are patent. No extra-axial fluid collections. Brain: No intracranial bleeds or mass effects. There is cerebral volume loss for age. There are periventricular and deep white matter chronic small vessel ischemic changes. 3 oval T2 hyperintense lesions involving right periventricular white matter perpendicular to the right lateral ventricle best seen on series 9, image 14. Brainstem appears normal. Diffusion-weighted images show no acute infarct. No chronic ischemic insults. Normal intravascular flow voids are present. Skull and face: Calvarial bone marrow is normal in signal. Orbits are normal. Sinuses: Sinuses and mastoids are clear. IMPRESSION: 1. No acute infarction. No acute intracranial bleed, midline shift or mass effect. 2. Age related volume loss and mild periventricular and deep white matter small vessel chronic ischemic changes. 3 T2 hyperintense areas involving right periventricular white matter as described above concerning for demyelinating plaques secondary to multiple sclerosis suggest clinical correlation. Dictated by: Kiran Cotto M.D. on 05/22/2024 at 11:13 Approved by: Kiran Cotto M.D. on 05/22/2024 at 11:18
[2024-05-22] MEDS: PANTOPRAZOLE DR 20 MG TABLET PO (09:26)
[2024-05-22] MEDS: APIXABAN 5 MG TABLET PO (09:26)
[2024-05-22] MEDS: SODIUM CHLORIDE 0.9% FLUSH 10 ML IV (09:26)
--- NOTE | 2024-05-22 12:11 | OT.IP.EVAL ---
Current Diagnoses Hyperlipidemia, unspecified (05/22/24) Essential (primary) hypertension (05/22/24) Gastro-esophageal reflux disease without esophagitis (05/22/24) Chest pain, unspecified (05/22/24) Altered mental status, unspecified (05/22/24) Past Medical History (Last Reviewed 05/22/24 @ 03:43 by Herber Mackay MD) Asthma Chronic rhinosinusitis Elevated blood pressure reading Family history of cardiovascular disease Heartburn Mixed hyperlipidemia Seasonal allergic rhinitis due to pollen Seasonal allergies Upper back pain Surgical History (Last Reviewed 05/22/24 @ 03:43 by Herber Mackay MD) History of ankle surgery History of replacement of both shoulder joints Status post appendectomy Status post knee surgery Occupational Therapy Inpatient Evaluation/Re-Eval M1 PT/OT-IP Prior Functional Status Start: 05/22/24 12:22 Freq: NEEDED Status: Active Protocol: Document 05/22/24 12:22 CGR (Rec: 05/22/24 13:10 CGR [id number]) Medical Review Prior Functional Status Medical History Reviewed Yes Communication Pt is an effective verbal communicator. Mobility and Gait Pt was IND in all mobility at baseline. Activities of Daily Living and IADL's Pt was IND in all ADLs at baseline. Social History Household Members none Living Arrangements Apartment/Condo Number of Floors (Floors) 3 or More Floors Number of Stairs To Enter/Railing? 3 steps to enter with B narrow railings. 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 Garage is down a floor and master bedroom is upstairs . Home Environment High Toilet,Walk in Shower Home Equipment Grab Bars Near Toilet,Grab Bars In Shower Employment Status Retired Additional Social History Comment Pt has grab bars in the master bath only which is upstairs. M2 OT-IP Current Condition Start: 05/22/24 12:22 Freq: Status: Active Protocol: Document 05/22/24 12:22 CGR (Rec: 05/22/24 13:10 CGR [id number]) Occupational Therapy Current Condition Current Condition Evaluation Date 05/22/24 Treatment Diagnosis chest pain, confusion, R arm weakness. Diagnosis Onset Date 05/22/24 M3 OT- IP Subjective and Pain Start: 05/22/24 12:22 Freq: Status: Active Protocol: Document 05/22/24 12:22 CGR (Rec: 05/22/24 13:10 CGR [id number]) OT- Subjective Occupational Therapy Visit Type Type Initial Evaluation Visit Start Time 11:31 Visit Stop Time 12:11 Notes Pt has friend present throughout session. OT Pain Assessment Pain When Pain Assessed At Rest Pain Present Pain Present Denied Pain M4 OT- IP ADL's Start: 05/22/24 12:22 Freq: Status: Active Protocol: Document 05/22/24 12:22 CGR (Rec: 05/22/24 13:10 CGR [id number]) OT [id number] Comments OT Self-Feeding Comments pt declined to eat lunch OT ADL-Grooming General Evaluation Grooming Ability Independent Comments OT Grooming Comments standing at sink OT ADL-Oral Care General Eval Oral Care Ability Independent Areas of Assistance Brushing Teeth Comments Oral Care Comments standing at sink OT ADL-Dressing General Eval Lower Body Dressing Ability Independent Areas Needing Assistance Socks Comments OT Dressing Comments seated in chair OT ADL-Toileting General Evaluation Toileting Ability Independent Comments OT Toileting Comments simulated seated on toielt OT ADL-Bathing Comments OT Bathing Comments not performed M5 OT- IP IADL's Start: 05/22/24 12:22 Freq: Status: Active Protocol: Document 05/22/24 12:22 CGR (Rec: 05/22/24 13:10 CGR [id number]) OT-Instrumental Activities of Daily Living Deficits IADL Deficits Identified Deficits Home Safety Awareness Awareness of Need for Assistance at Home Decreased Awareness Ability to Problem Solve Emergency Unable to Problem Solve Situations Medication Management Medication Management Comments Concerns regarding patients ability to perform IND. Money Management Money Management Comments Concerns regarding patients ability to perform IND. Meal Preparation Meal Preparation No Deficits Identified Speech Communication Instructor Speech Communication Instructor No Deficits Identified Driving Driving Concerns Identified Regarding Safety M6 OT- IP Functional Cognition Start: 05/22/24 12:22 Freq: Status: Active Protocol: Document 05/22/24 12:22 CGR (Rec: 05/22/24 13:10 CGR [id number]) Cognitive Factors Limiting Selfcare Function Cognitive Ability Level of Alertness Alert,Confusional State Patient Orientation Name,Age,Birthday,Month,Date, Year,Day of Week,Place, Situation Attention Span Ability Unable to Focus,Unable to Sustain Attention Ability to Follow Commands Able to Follow One Step Commands with Increased Time, Able to Follow One Step Commands with Repetition Cognitive Tests SLUMS Pt scored an 18/30 but needed multiple questions reread to her. Pt answered the orientation questions and simple math but with extra time and repeating the information. Pt was able to name 12 animals in 1 minute and remembered 0 of 5 objects for recall. Pt was able to state numbers backwards and earned 2 of the 4 points for the clock making the hour hand longer than the number hand. She earned the 2 points for identifying the largest item and marking the triangle but of note, it took significant time for her to answer/perform each task. Pt earned 4 of the 8 for the listening comprehension. Cognitive Comments Cognitive Assessment Comments Pt appears confused throughout session, unable to answer questions consistently or directly. Pt is unable to give consistent information on when her R shld got weak first stating 1-2 years ago, then saying that its been much weaker this week. OT- Vision and Hearing OT- Hearing Assessment OT- Hearing Assessment WFL OT- Vision Assessment Vision History Cataracts Visual Acuity Glasses For Reading Visual Attentiveness WFL Occular Pursuits WFL Visual Convergence WFL M7 OT- IP Mobility and Balance Start: 05/22/24 12:22 Freq: Status: Active Protocol: Document 05/22/24 12:22 CGR (Rec: 05/22/24 13:10 R [id number]) OT-Transfer Assessment Sit to and From Stand Sit to and from Stand Independent Transfers Transfer Ability Independent Technique Transfer Destination Chair Transfer Technique Stand Step Pivot Devices Transfer Assistive Devices None Comments Mobility Comments Pt ambulates around the room without DME. Noted slight sway with ambulation and patient states that she feels like her R leg is suddenly weaker. Requested P.T. consult for higher level balance and testing. Communicated information to P.T. OT- Gait Assessment Gait Gait Assistance Required: Independent Assistive Devices Assistive Device None OT- Balance Assessment Sitting Balance and Reactions Static Sitting Balance Ability Normal Dynamic Sitting Balance Ability Normal M8 OT- IP Objective Assessments Start: 05/22/24 12:22 Freq: Status: Active Protocol: Document 05/22/24 12:22 CGR (Rec: 05/22/24 13:10 R [id number]) OT Gross Range of Motion Upper Extremity Range of Motion Assessment Right Impaired ROM Impairments 0-90 for safety of the R shld OT Strength Upper Extremity Strength Assessment Right Impaired Comments Strength Comments LUE 5/5 R shld 2/5, R arm 3+/5 OT- Coordination Assessment Upper Extremity Finger to Nose Test Within Functional Limits Finger Tapping Test Within Functional Limits OT-Muscle Tone Assessment Muscle Tone WNL Yes OT Sensation Assessment Comments Summary Comments Pt states the R side of her forhead is tingly Edema Edema Absent M9 OT- IP Assessment and Plan Start: 05/22/24 12:22 Freq: Status: Active Protocol: Document 05/22/24 12:22 CGR (Rec: 05/22/24 13:10 CGR [id number]) OT Summary Assessment and Plan Potential Rehabilitation Potential Excellent Analytic Complexity at Evaluation Moderate Summary OT Impairments Strength,Sensation,Functional Cognition Progress Towards Goals Slow Progress due to Cognition Assessment Summary Pt presents as a moderate complexity evaluation s/p admit for change in mental status and R sided weakness. Pt scored an 18/30 on the SLUMS in todays session and is demonstrating weakness in the R shld and arm. It is difficult to obtain information from the patient as she is indirect in responding and inconsistent with her answers. Pt reports tingling to the right side of her forhead, assessed weakness to the R shld and arm, assessed slight R sided facial droop, and pt reported RLE weakness. Pt's biggest barrier is her cognition at this time . Pt is not agreeable to rehab . Recommend outpatient OT or ST for cognition. Goals OT-Other Goals RUE strengthening Increased home safety Days to Meet Goals 5 Frequency of Treatment Other frequency 5x per week Treatment Plan OT Treatment Plan Functional Cognition Training, Therapeutic Exercises,Patient/ Family Education,Discharge Planning Other Treatment Recommendations and Next cog training, RUE weakness Treatment Focus Discharge Recommendations OT Discharge Recommendations Home Other Discharge Recommendations cog therapy with either OT or ST Transportation Needs at Discharge Private Vehicle
--- NOTE | 2024-05-22 13:34 | PT.IIE ---
Current Diagnoses Hyperlipidemia, unspecified (05/22/24) Essential (primary) hypertension (05/22/24) Gastro-esophageal reflux disease without esophagitis (05/22/24) Chest pain, unspecified (05/22/24) Altered mental status, unspecified (05/22/24) Surgical History (Last Reviewed 05/22/24 @ 03:43 by Herber Mackay MD) History of ankle surgery History of replacement of both shoulder joints Status post appendectomy Status post knee surgery Medical History (Last Reviewed 05/22/24 @ 03:43 by Herber Mackay MD) Asthma Chronic rhinosinusitis Elevated blood pressure reading Family history of cardiovascular disease Heartburn Mixed hyperlipidemia Seasonal allergic rhinitis due to pollen Seasonal allergies Upper back pain Physical Therapy Inpatient Evaluation/Re-Eval M1 PT/OT-IP Prior Functional Status Start: 05/22/24 12:22 Freq: NEEDED Status: Active Protocol: Document 05/22/24 13:15 MB (Rec: 05/22/24 13:33 MB [id number]) Medical Review Prior Functional Status Medical History Reviewed Yes Communication Pt is an effective verbal communicator. Mobility and Gait Pt was IND in all mobility at baseline. Activities of Daily Living and IADL's Pt was IND in all ADLs at baseline. Social History Household Members none Living Arrangements Apartment/Condo Number of Floors (Floors) 3 or More Floors Number of Stairs To Enter/Railing? 3 steps to enter with B narrow railings. 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 Garage is down a floor and master bedroom is upstairs . Home Environment High Toilet,Walk in Shower Home Equipment Grab Bars Near Toilet,Grab Bars In Shower Employment Status Retired Additional Social History Comment Pt has grab bars in the master bath only which is upstairs. M2 PT-IP Current Condition Start: 05/22/24 13:14 Freq: NEEDED Status: Active Protocol: Document 05/22/24 13:15 MB (Rec: 05/22/24 13:33 MB [id number]) Physical Therapy Current Condition Current Condition Evaluation Date 05/22/24 Treatment Diagnosis CP, confusion M3 PT-IP Subjective Start: 05/22/24 13:14 Freq: NEEDED Status: Active Protocol: Document 05/22/24 13:15 MB (Rec: 05/22/24 13:33 MB [id number]) Subjective Physical Therapy Visit Type Type Initial Evaluation Visit Start Time 13:15 Visit Stop Time 13:28 Number of BANK COMPLIANCE OFFICER Visits 0 Physical Therapy Visit Comments Patient Comments Pt does not answer questions directly and does not complete thoughts. Mentions being an athlete, having titanium and having a PT, Jett, and having trouble working on a lump in her right neck and issues down her right arm. Therapy Pain Assessment Pain When Pain Assessed At Rest Pain Present Pain Present Denied Pain M4 PT-IP Mobility and Gait Start: 05/22/24 13:14 Freq: NEEDED Status: Active Protocol: Document 05/22/24 13:15 MB (Rec: 05/22/24 13:33 [id number]) PT-Transfer Assessment Sit to and From Stand Sit to and from Stand Independent Equipment Transfer Assistive Device None Transfer Ability Level of Assist Independent Gait Assessment Gait Gait Assistance Required: Independent Distance (Feet) 200 Assistive Devices Assistive Device None Comments Gait Comments Pt does not swing her right arm and tends to let it hang by her side, she scuffs her right foot twice with gait Stair Climbing Assessment Evaluation Level of Assist On Stairs Independent Devices Stair Climbing Assistive Devices Left Railing,Right Railing Technique/Endurance Stair Climbing Direction Ascend and Descend Stair Climbing Technique Step Over Step Number of Steps Climbed 3 Query Text: Stair Climbing Set # Repetitions (reps) 3 PT-Balance Assessment Sitting Balance and Reactions Static Sitting Balance Ability Normal Dynamic Sitting Balance Ability Normal Standing Balance and Reactions Static Standing Balance Ability Normal Dynamic Standing Balance Ability Normal M5 PT-IP Objective Assessments Start: 05/22/24 13:14 Freq: NEEDED Status: Active Protocol: Document 05/22/24 13:15 MB (Rec: 05/22/24 13:33 MB [id number]) Orientation Orientation/Cognition Level of Alertness Alert Comments Pt does not answer all questions well and changes topics Gross Range of Motion Upper Extremity ROM Impairments Defer to OT Lower Extremity ROM Assessment Within Functional Limits Strength Lower Extremity Strength Assessment Within Functional Limits Coordination Assessment Gross Coordination Gross Coordination Impaired Assessment Heel on Roman Test Minimal Impairment Coordination Comments Minimal impairment right heel to roman Sensation Assessment Comments Sensation Comments Does not follow sensory commands M7 PT-IP Assessment and Plan Start: 05/22/24 13:14 Freq: NEEDED Status: Active Protocol: Document 05/22/24 13:15 MB (Rec: 05/22/24 13:33 MB [id number]) PT Summary Assessment and Plan Potential Rehabilitation Potential Good Status of Condition at Evaluation Evolving Summary Impairments Balance,Coordination,Cognition Assessment Summary Pt is a 78 y/o female adm with CP and cognitive challenges. Brain MRI report reveals plaques possibly consistent with MS. Pt reports history of lump in right upper neck that causes issues down her right arm as far as numbness and tingling. When asked if she has numbness and tingling today, pt cannot answer, has trouble word-finding and mentions being tired. She has minor coordination changes in right arm swing with gait and right heel to roman. Recommend outpatient follow-up about MRI findings and ongoing OPPT, increased assistance at home. Frequency of Treatment Frequency Of Treatment Discharge Recommendations To Nursing Amount of Assist Needed Standby Assistance Discharge Recommendations PT Discharge Recommendations Home with Assistance Transportation Needs at Discharge Private Vehicle
--- NOTE | 2024-05-22 13:39 | P.DS_ITS ---
History of Present Illness History of Present Illness Chief complaint: Chest pain Narrative: From H&P: 78 by/o with PMH of A-fib, HTN, HLD, GERD, presented to ER with epigastric or chest pain. ED workup non-revealing. Additional complaints on Rt arm weakness. Without evidence of stroke. Confused, however. Placed in observation. Discharge Providers Provider Date of admission: 05/22/24 02:51 Discharge Date: 05/22/24 Primary care physician: Rocio Thomas MD Consults: 05/22/24 09:01 Consult to Occupational Therapy Evaluate & Treat Comment: [facility] eval Physician Instructions: Evaluate and treat 05/22/24 12:13 Consult to Physical Therapy Evaluate & Treat Comment: Physician Instructions: Evaluate and Treat Discharge provider: Gerhard Shipman MD Summary Hospital Course Discharge Diagnosis: 1. Right shoulder weakness, acute on chronic. 2. Possible encephalopathy, present on admission and resolved. 3. Chronic frozen right shoulder, present on admission and active. 4. Cognitive impairment with a slums score of 18/30, present on admission and active. 5. Chest pain, present on admission and resolved. 6. Hypertension, initially uncontrolled but then improved. 7. Atrial fibrillation (possible PAF), present on admission and stable. 8. GERD, present on admission and stable. Hospital Course: The patient was admitted with possible confusion and a concern for right shoulder weakness. She was have a chronic frozen right shoulder. She was concerned because she was having difficulty lifting her camera. She was also confused by the fact that her shoulder was not hurting which is typically part of her shoulder syndrome. On exam she had no weakness of the arm other than abduction and bringing the shoulder straight up to the front on exam. She denied any leg symptoms although the therapist thought she might have mild leg weakness. CT angiogram, CT brain, an MRI of the brain were all negative for acute findings. There is a question of a chronic demyelination process on the right side of the brain which is of unclear clinical significance. She was evaluated by Physical therapy and felt to be appropriate for outpatient therapy. A cognitive screen revealed a slums of 18/30. She was felt to be stable for discharge with no further workup at this time and her case was discussed with her primary care physician with whom she will have close follow up. Status at Discharge Cognitive/behavioral status at discharge: oriented Functional status at discharge: independent ambulation Overall status at discharge: patient is back to baseline Time Spent with Patient Time spent: Greater than 30 minutes Exam Vital Signs (past 8 hours): - 05/22/24 08:00 Temperature 97.2 F L Pulse Rate 53 L Respiratory Rate 16 Blood Pressure 180/80 H Pulse Oximetry 97 Oxygen Flow Rate 0 Oxygen Delivery Method Room Air Oxygen Flow Rate 0 Narrative Exam Narrative: NAD, alert and oriented. Fluent speech. Lungs are clear, normal rate and effort. Heart is regular, no murmur gallop or rub. Abdomen is soft, non distended. Extremities are free of edema. Limitations of right shoulder range of motion is noted above. She has limited av conduction and ability to bring shoulder up in the frontal plane. Arm strength below the shoulder is otherwise unremarkable including coordination of the hand. Objective ECG Impression: Sinus bradycardia with 1st degree AV block Left axis deviation Minimal voltage criteria for LVH, may be normal variant ( [place] product ) Imaging Multipel studies:: Radiologist's impression: Chest x-ray: My impression: Without infiltrates or cardiomegaly Radiologist's impression: No acute cardiopulmonary abnormality is seen. CT scan - head: Radiologist's impression: CTH - No acute intracranial pathology. CTA H&N - No significant intracranial arterial abnormality is seen. No significant abnormality is seen within the arteries of the neck MR Brain: 1. No acute infarction. No acute intracranial bleed, midline shift or mass effect. 2. Age related volume loss and mild periventricular and deep white matter small vessel chronic ischemic changes. 3 T2 hyperintense areas involving right periventricular white matter as described above concerning for demyelinating plaques secondary to multiple sclerosis suggest clinical correlation. Labs 05/22/24 06:18 05/21/24 23:17 Labs: Laboratory Results - last 24 hr 05/21/24 05/22/24 05/22/24 23:17 00:05 01:55 WBC 5.5 RBC 4.28 Hgb 12.6 Hct 38.3 MCV 89.5 MCH 29.4 MCHC 32.9 RDW 14.6 Plt Count 231 Neut % (Auto) 57.5 Lymph % (Auto) 28.9 [place] % (Auto) 10.8 Eos % (Auto) 2.1 Baso % (Auto) 0.7 Neut # (Auto) 3200 Lymph # (Auto) 1600 [place] # (Auto) 600 Eos # (Auto) 100 Baso # (Auto) 0 PT 13.4 H INR 1.2 APTT 41 H Sodium 138 Potassium 4.5 Chloride 104 Carbon Dioxide 26 BUN 25 H Creatinine 0.78 Estimated GFR > 60 BUN/Creatinine Ratio 32.1 H Glucose 116 H Lactate 0.8 Calcium 9.4 Magnesium 2.0 Total Bilirubin 0.2 AST 64 H ALT 59 H Alkaline Phosphatase 115 Total Creatine Kinase 132 Troponin I < 0.012 0.024 NT-Pro-B Natriuret Pep 321 Total Protein 6.7 Albumin 4.0 Globulin 2.7 Albumin/Globulin Ratio 1.5 Lipase 201 Urine Color Yellow Urine Appearance Clear Urine pH 6.0 Ur Specific Silvis <=1.005 Urine Protein Negative Urine Glucose (UA) Negative Urine Ketones Negative Urine Occult Blood 1+ H Urine Nitrate Negative Urine Bilirubin Negative Urine Urobilinogen 0.2 Ur Leukocyte Esterase 1+ H Urine RBC 1-5/hpf Urine WBC 1-5/hpf Ur Squamous Epith Cells 1-5 /hpf Ur Transition Epith Cell 1-5/hpf Urine Bacteria Moderate (10-30) H Ur Culture Indicated? Specimen cultured Vol Urine Centrifuged 10ml (spun) 05/22/24 05/22/24 06:18 08:09 WBC 5.1 RBC 4.20 Hgb 12.3 Hct 37.8 MCV 89.9 MCH 29.2 MCHC 32.5 RDW 14.5 Plt Count 218 Neut % (Auto) 57.2 Lymph % (Auto) 28.1 [place]cock % (Auto) 11.7 Eos % (Auto) 2.3 Baso % (Auto) 0.7 Neut # (Auto) 2900 Lymph # (Auto) 1400 [place]cock # (Auto) 600 Eos # (Auto) 100 Baso # (Auto) 0 PT INR APTT Sodium Potassium Chloride Carbon Dioxide BUN Creatinine Estimated GFR BUN/Creatinine Ratio Glucose Lactate Calcium Magnesium Total Bilirubin AST ALT Alkaline Phosphatase Total Creatine Kinase Troponin I < 0.012 NT-Pro-B Natriuret Pep Total Protein Albumin Globulin Albumin/Globulin Ratio Lipase Urine Color Urine Appearance Urine pH Ur Specific Silvis Urine Protein Urine Glucose (UA) Urine Ketones Urine Occult Blood Urine Nitrate Urine Bilirubin Urine Urobilinogen Ur Leukocyte Esterase Urine RBC Urine WBC Ur Squamous Epith Cells Ur Transition Epith Cell Urine Bacteria Ur Culture Indicated? Vol Urine Centrifuged [facility] Medical History Seasonal allergies Upper back pain Elevated blood pressure reading [place] Asthma Chronic rhinosinusitis Mixed hyperlipidemia Family history of cardiovascular disease Seasonal allergic rhinitis due to pollen Surgical History History of ankle surgery History of replacement of both shoulder joints Status post appendectomy Status post knee surgery Family History Father Leukemia Cancer Social History household members: none Smoking Status: Never smoker second hand exposure: No alcohol intake: current substance use type: does not use Discharge Assessment & Plan Assessment and Plan Assessment: 1. Right shoulder weakness, acute on chronic. 2. Possible encephalopathy, present on admission and resolved. 3. Chronic frozen right shoulder, present on admission and active. 4. Cognitive impairment with a slums score of 18/30, present on admission and active. 5. Chest pain, present on admission and resolved. 6. Hypertension, initially uncontrolled but then improved. 7. Atrial fibrillation (possible PAF), present on admission and stable. 8. GERD, present on admission and stable. Plan of Treatment: Discharge home, no change in medications. Close follow up with PCP and consideration of outpatient physical therapy. Monitor her cognitive status with periodic assessment. Discharge Plan Discharge Plan Patient Disposition: Home Provider Discharge Comment: Stable for discharge home, communicated results of testing with her PCP. We would recommended outpatient physical therapy. Discharge orders & Medications Prescriptions: Continued fluticasone propionate 110 mcg/actuation HFA aerosol inhaler See Rx Instructions .ROUTE .COMPLEX PRN (Reason: asthma) Rx Instructions: pt takes it qas needed omeprazole 20 mg capsule,delayed release(DR/EC) 20 mg PO DAILY Qty: 90 2RF Rx Instructions: pt only takes it as needed cetirizine 10 MG tablet 10 mg PO PRN PRN (Reason: Allergic Symptoms) Qty: 0 multivitamin [Multiple Vitamins] 1 EACH tablet 1 tab PO QDAY Qty: 0 Eliquis 5 mg tablet 5 mg PO BID Qty: 60 2RF bisoprolol fumarate 5 mg tablet 5 mg PO DAILY Follow up/Referrals: Rocio Thomas MD [Primary Care Provider] - Discharge Health Status Multidrug resistant organism: No MDRO Diet/Activity/Treatments Diet: Diet as Tolerated Visit Report/Discharge Packet Stand Alone Forms: Patient Portal/API Discharge Data Primary Care Provider: Rocio Thomas Attending Provider: Herber Napier Admit Date/Time: 05/22/24 02:51
--- NOTE | 2024-05-22 14:52 | CM.DANOTE ---
B DCP Assessment note pt is a 78yo F admitted with AMS/chest pain PCP Rocio LOZANO and zainab LAINEZ AMUSEMENT RIDE INSPECTOR reviewed EMR. per provider, pending MRI results pt to dc home today. PT/OT rec home, OT [facility] . AMUSEMENT RIDE INSPECTOR met with pt briefly in room. confirms lives alone in [place], indep, drives, no DME. denies any CM needs. very eager to dc home. AMUSEMENT RIDE INSPECTOR updated TCM P: dc home today with OP f/u rec. Will continue to follow as needed [place] Discharge Planning/Care Management CM Discharge Assessment Start: 05/22/24 14:51 Freq: Status: Active Protocol: Document 05/22/24 14:51 (Rec: 05/22/24 14:52 [id number]) Discharge Planning Assessment Assigned Policy Loan Calculator [place] DPOA/Assigned Designee Name brother Golden Contact Information [phone] Advance Directives? No History Provided By Patient,Medical Record Prior Living Arrangements Apartment/Condo Household Members none Type of transporation used prior to Drives own vehicle admit Independent with ADL's Yes Is patient alert and oriented? Yes Comment [facility] Discharge Plan Home Transportation Arrangement self Referrals Initiated None needed Review Status In Process Please Provide Date Initial DC 05/22/24 Assessment Was Performed Next Review Type Continued Stay Review
== END 2024-05-22 13:58 | disposition home or self-care (01) ==
LOC: ED 05-22 02:51 → AC 05-22 02:51
PROVIDERS: Hospitalist; Admitting Provider Internal Medicine; Emergency Provider Emergency Medicine; PCP Family Medicine; Referring Provider Emergency Medicine; Visit Provider Internal Medicine
DX: R07.9 Chest pain, unspecified (principal); R10.13 Epigastric pain; R41.0 Disorientation, unspecified; R29.702 NIHSS score 2; I48.91 Unspecified atrial fibrillation; I10 Essential (primary) hypertension; E78.5 Hyperlipidemia, unspecified; K21.9 Gastro-esophageal reflux disease without esophagitis; Z79.01 Long term (current) use of anticoagulants
CPT/HCPCS: 36415; 70450; 70496; 70498; 70551; 71045; 80053; 81001; 82550; 83605; 83690; 83735; 83880; 84484; 85025; 85610; 85730; 87086; 93005; 97129; 97162; 97166; 97535; 99284; G0378; Q9967

== ENCOUNTER 2024-10-02 05:16 | Emergency (ER) | payer MEDICARE, OTHER, SELFPAY ==
[2024-05-22 13:46] VITALS: BMI 24.0
[2024-10-02] VITALS (12 sets, daily range): BP systolic 147–169; BP diastolic 84–112; PULSE 59–127; RESP 12–24; TEMP 36.4–36.5; O2SAT 91–99; BMI 24.0
--- NOTE | 2024-10-02 05:18 | DI.RAD.S_ITS ---
PROCEDURE: XR CHEST 1V INDICATIONS: Chest Pain TECHNIQUE: One view of the chest was acquired. COMPARISON: [facility], CR, XR CHEST 1V, 05/21/2024, 23:26. FINDINGS: Surgical changes and devices: Status post bilateral shoulder arthroplasty. Lungs and pleura: Lungs are clear. No pleural effusions or pneumothorax. Mediastinum: Mediastinal contours appear normal. Heart size is normal. Bones and chest wall: No suspicious bony lesions. Overlying soft tissues appear unremarkable. IMPRESSION: No acute cardiopulmonary abnormalities or focal consolidation. No significant discrepancy with the maintenance mechanic 2nd shift radiology preliminary report. Dictated by: John Crawford M.D. on 10/02/2024 at 7:20 Approved by: John Crawford M.D. on 10/02/2024 at 7:21
--- NOTE | 2024-10-02 05:26 | EKG_ITS ---
[place] [id number] [address] [place] [id number] Test Date: 2024-10-02 Pat Name: Alicia Richmond Department: [facility] Room: Gender: Female Warehouse Person: : 1945 Requested By: Order Number: [id number] Reading MD: Gerhard Shipman Measurements Intervals [place] Rate: 107 P: MN: QRS: -61 QRSD: 94 T: 70 QT: 324 QTc: 432 Interpretive Statements Atrial fibrillation with rapid ventricular response Left anterior fascicular block Minimal voltage criteria for LVH, may be normal variant ( [place] product ) Electronically Signed On 10-13-2024 8:46:40 PDT by Gerhard Shipman
--- NOTE | 2024-10-02 05:35 | ED.CHESTPAIN ---
HPI - Chest Pain <Yeison Contreras MD - Last Filed: 10/02/24 15:55> General Chief Complaint: Chest Pain Stated Complaint: Chest Pain, Abdominal Pain Time Seen by Provider: 10/02/24 05:25 Source: patient Mode of arrival: Ambulatory Limitations: no limitations History of Present Illness HPI narrative: 79-year-old female with history of atrial fibrillation on chronic oral anticoagulation and bisoprolol, history of COPD without chronic hypoxia on topical steroid inhaler and rescue inhaler as needed, no known aortic problems. Complains of recent days sensation of worsening of her asthma, not responsive to inhalers. Has intermittent posterior shoulder blade and posterior mid back pain, some abdominal pain as well. No nausea or vomiting or diarrhea. No fevers or chills. No history of known coronary artery disease. No associated diaphoresis. Related Data Home Medications ?Medication ?Instructions ?Recorded ?Confirmed cetirizine 10 mg tablet 10 mg PO PRN PRN Allergic Symptoms 06/03/16 09/15/24 ##0 multivitamin (Multiple Vitamins 1 tab PO QDAY ##0 12/16/16 09/15/24 tablet) bisoprolol fumarate 5 mg tablet 5 mg PO DAILY 05/22/24 09/15/24 Previous Rx's ?Medication ?Instructions ?Recorded apixaban 5 mg tablet (Eliquis) 5 mg PO BID #60 tabs 06/30/23 omeprazole 20 mg capsule,delayed 20 mg PO DAILY #90 caps 07/13/24 release fluticasone propionate 110 1 inh inhalation BID PRN asthma 07/14/24 mcg/actuation HFA aerosol inhaler #12 grams metoprolol succinate 25 mg 25 mg PO DAILY #14 tabs 10/02/24 tablet,extended release 24 hr Allergies Allergy/AdvReac Type Severity Reaction Status Date / Time cephalexin (From KEFLEX) AdvReac Intermediate rash Verified 10/02/24 05:26 morphine (MORPHINE) AdvReac Intermediate rash Verified 10/02/24 05:26 high dose flu shot Allergy Throat Uncoded 10/02/24 05:26 closing, hoarsness Patient History <Yeison Contreras MD - Last Filed: 10/02/24 15:55> Medical History (Updated 10/02/24 @ 08:14 by Barrie Moerland MD) Alzheimer's dementia Age-related cognitive decline Altered mental status Seasonal allergies Upper back pain Elevated blood pressure reading Heartburn Asthma Chronic rhinosinusitis Mixed hyperlipidemia Family history of cardiovascular disease Seasonal allergic rhinitis due to pollen Surgical History History of ankle surgery History of replacement of both shoulder joints Status post appendectomy Status post knee surgery Family History Father Leukemia Cancer Social History household members: none second hand exposure: No alcohol intake: current substance use type: does not use Smoking Status: Never smoker alcohol intake frequency: a few times a week Exam <Yeison Contreras MD - Last Filed: 10/02/24 15:55> Narrative Exam Narrative: GENERAL: Well-developed patient, in mild distress. HEAD: Atraumatic. Normocephalic. EYES: Pupils equal round and reactive. Extraocular motions intact. No scleral icterus. No injection or drainage. ENT: Nose without bleeding, purulent drainage. Throat without erythema, tonsillar hypertrophy or exudate. Airway patent. NECK: Trachea midline. Non tender CARDIOVASCULAR: Irregularly irregular, slight increased rate, without murmurs, gallops, or rubs. RESPIRATORY: Clear to auscultation. Breath sounds equal bilaterally. No wheezes, rales, or rhonchi. GASTROINTESTINAL: Abdomen soft, non-tender, nondistended. EXTREMITIES: No edema or joint tenderness. BACK: Nontender without deformity or crepitance. No flank tenderness. NEURO: AOx3. Motor functions grossly nonfocal. SKIN: No rash or erythema of visible areas Initial Vital Signs Initial Vital Signs: Vital Signs Temperature 97.7 F 10/02/24 05:26 Pulse Rate 107 H 10/02/24 05:26 Respiratory Rate 10/02/24 05:26 Blood Pressure 159/99 H 10/02/24 05:26 Pulse Oximetry 98 10/02/24 05:26 Oxygen Delivery Method Room Air 10/02/24 05:26 <Barrie Moreland MD - Last Filed: 10/02/24 08:24> Initial Vital Signs Initial Vital Signs: Vital Signs Temperature 97.7 F 10/02/24 05:26 Pulse Rate 107 H 10/02/24 05:26 Respiratory Rate 10/02/24 05:26 Blood Pressure 159/99 H 10/02/24 05:26 Pulse Oximetry 98 10/02/24 05:26 Oxygen Delivery Method Room Air 10/02/24 05:26 Course <Yeison Contreras MD - Last Filed: 10/02/24 15:55> Orders Ordered: ED Orders 10/02/24 07:33 Troponin I Stat Discontinued Medications Albuterol (Albuterol 2.5 Mg/3 Ml Neb (Adult)) 2.5 mg INH NOW ONE Stop: 10/02/24 06:08 Last Admin: 10/02/24 07:05 Dose: 2.5 mg Documented By: LASHELL Aspirin (Aspirin 81 Mg Chew Tab) 324 mg PO NOW ONE Stop: 10/02/24 05:19 Last Admin: 10/02/24 08:01 Dose: Not Given Documented By: SHIVANI Metoprolol Succinate (Metoprolol Er 25 Mg Tablet) 25 mg PO NOW ONE Stop: 10/02/24 07:53 Last Admin: 10/02/24 08:03 Dose: 25 mg Documented By: SHIVANI Metoprolol Tartrate (Metoprolol Tartrate 5 Mg/5 Ml Inj) 5 mg IV NOW ONE Stop: 10/02/24 06:14 Last Admin: 10/02/24 06:50 Dose: 5 mg Documented By: STEPH Pantoprazole Sodium (Pantoprazole 40 Mg Vial) 40 mg IV NOW ONE Stop: 10/02/24 06:22 Last Admin: 10/02/24 06:50 Dose: 40 mg Documented By: STEPH Vital Signs Vital signs: Vital Signs - 8 hr 10/02/24 08:03 10/02/24 08:36 Temperature 97.6 F Pulse Rate 88 83 Respiratory Rate 16 Blood Pressure 164/100 H 169/84 H Pulse Oximetry 98 Oxygen Delivery Method Room Air <Barrie Moreland MD - Last Filed: 10/02/24 08:24> Orders Ordered: ED Orders 10/02/24 07:33 Troponin I Stat Discontinued Medications Albuterol (Albuterol 2.5 Mg/3 Ml Neb (Adult)) 2.5 mg INH NOW ONE Stop: 10/02/24 06:08 Last Admin: 10/02/24 07:05 Dose: 2.5 mg Documented By: LASHELL Aspirin (Aspirin 81 Mg Chew Tab) 324 mg PO NOW ONE Stop: 10/02/24 05:19 Last Admin: 10/02/24 08:01 Dose: Not Given Documented By: SHIVANI Metoprolol Succinate (Metoprolol Er 25 Mg Tablet) 25 mg PO NOW ONE Stop: 10/02/24 07:53 Last Admin: 10/02/24 08:03 Dose: 25 mg Documented By: SHIVANI Metoprolol Tartrate (Metoprolol Tartrate 5 Mg/5 Ml Inj) 5 mg IV NOW ONE Stop: 10/02/24 06:14 Last Admin: 10/02/24 06:50 Dose: 5 mg Documented By: STEPH Pantoprazole Sodium (Pantoprazole 40 Mg Vial) 40 mg IV NOW ONE Stop: 10/02/24 06:22 Last Admin: 10/02/24 06:50 Dose: 40 mg Documented By: STEPH Reevaluation(s) Reevaluation #1: Upon re-evaluation, patient is asymptomatic. All her imaging came back negative. Patient's vital signs normalized for the most part. Patient given an additional metoprolol succinate 25 mg 1 tab p.o. daily and prescribed some for the next 14 days. Patient was never taking bisoprolol. Vital Signs Vital signs: Vital Signs - 8 hr 10/02/24 08:03 10/02/24 08:36 Temperature 97.6 F Pulse Rate 88 83 Respiratory Rate 16 Blood Pressure 164/100 H 169/84 H Pulse Oximetry 98 Oxygen Delivery Method Room Air MDM - Chest Pain <Yeison Contreras MD - Last Filed: 10/02/24 15:55> Lab Data Attestation: I reviewed the patient's lab results. Lab results narrative: White blood cell count 7800, hemoglobin 14.7, platelets adequate. Glucose 111. Renal function unremarkable, normal serum CO2 and electrolytes. Liver functions normal. Lipase normal. BNP not elevated. Troponin negative/unmeasurable. 10/02/24 05:25 10/02/24 05:25 Labs: Lab Results 10/02/24 10/02/24 Range/Units 05:25 07:33 WBC 7.8 (4.5-11.0) X10^3/uL RBC 4.84 (4.0-5.2) X10^6/uL Hgb 14.7 (12.0-16.0) g/dL Hct 43.5 (36-46) % MCV 89.9 (80-100) fL MCH 30.5 (26-34) PG MCHC 33.9 (30-36) % RDW 14.2 (11.6-14.8) % Plt Count 280 (150-400) X10^3/uL Neut % (Auto) 51.1 (50-75) % Lymph % (Auto) 36.1 (25-40) % [place] % (Auto) 9.0 (3-14) % Eos % (Auto) 2.8 (2-4) % Baso % (Auto) 1.0 (0-2) % Neut # (Auto) 4000 (2567-6324) /uL Lymph # (Auto) 2800 (8597-5467) /uL [place] # (Auto) 700 (0-900) /uL Eos # (Auto) 200 (0-450) /uL Baso # (Auto) 100 (0-100) /uL PT 12.2 (9.4-12.5) SECONDS INR 1.1 (0.9-1.3) APTT 33 (25.1-36.5) SECONDS Sodium 138 (137-145) mmol/L Potassium 4.2 (3.4-5.1) mmol/L Chloride 105 (98-107) mmol/L Carbon Dioxide 25 (22-32) mmol/L BUN 18 H (7-17) mg/dL Creatinine 0.78 (0.52-1.04) mg/dL Estimated GFR > 60 (>60) mL/min BUN/Creatinine Ratio 23.1 H (6-22) Glucose 111 H (70-99) mg/dL Calcium 9.2 (8.4-10.2) mg/dL Magnesium 1.9 (1.6-2.3) mg/dL Total Bilirubin 0.3 (0.2-1.3) mg/dL AST 28 (14-36) IU/L ALT 19 (<35) IU/L Alkaline Phosphatase 83 (38-126) U/L Total Creatine Kinase 111 (30-135) U/L Troponin I < 0.012 < 0.012 (0.01-0.034) ng/mL NT-Pro-B Natriuret Pep 326 (<450) pg/mL Total Protein 7.1 (6.3-8.2) g/dL Albumin 4.3 (3.5-5.0) g/dL Globulin 2.8 (1.7-4.1) g/dL Albumin/Globulin Ratio 1.5 (1.0-2.8) Lipase 132 (23-300) U/L ECG Data Attestation: I personally reviewed and interpreted this ECG as follows: Interpretation: 0526, atrial fibrillation with rapid ventricular response rate 107, left anterior fascicular block. QRS 94, QTC 432. MDM Narrative Medical decision making narrative: 79-year-old female with history of COPD, atrial fibrillation on chronic anticoagulation and beta blockade, topical inhaler use, no home oxygen. Has recent dyspnea, shoulder blade area discomfort, mid back pain, some anterior abdominal discomfort. No known aortic problems. Afebrile. On monitor has atrial fibrillation known, ventricular response rate 90-110 range. We will give IV metoprolol dose. EKG chest x-ray labs pending. DDx pneumonia, COPD exacerbation, pulmonary embolism seems less likely on Eliquis, consider aortic pathology however, consider referred pain from DONNY or other GI process. IV Protonix. Nebulized DuoNeb. EKG shows atrial fibrillation with ventricular rate 107. Chest x-ray no acute changes, see tele radiology report. Lab data: White blood cell count 7800, hemoglobin 14.7, platelets adequate. Glucose 111. Renal function unremarkable, normal serum CO2 and electrolytes. Liver functions normal. Lipase normal. BNP not elevated. Troponin negative/unmeasurable. Renal function adequate. CTA chest with IV only CT abdomen and pelvis imaging pending. IV fluid bolus. 0650, CTA chest shows no pulmonary emboli, hazy density in the lungs, atelectasis versus mild edema, no consolidation. See tele radiology report. CT abdomen and pelvis no acute changes. See tele radiology report. 0700, repeat troponin to be drawn later this hour, signed out to Dr Moreland. Repeat troponin negative. Patient is stable at this time. Gave an additional dose of metoprolol succinate 25 mg p.o. now. Patient will continue with this medication and follow up with PCP and Cardiology. <Barrie Moreland MD - Last Filed: 10/02/24 08:24> Lab Data Labs: Lab Results 10/02/24 10/02/24 Range/Units 05:25 07:33 WBC 7.8 (4.5-11.0) X10^3/uL RBC 4.84 (4.0-5.2) X10^6/uL Hgb 14.7 (12.0-16.0) g/dL Hct 43.5 (36-46) % MCV 89.9 (80-100) fL MCH 30.5 (26-34) PG MCHC 33.9 (30-36) % RDW 14.2 (11.6-14.8) % Plt Count 280 (150-400) X10^3/uL Neut % (Auto) 51.1 (50-75) % Lymph % (Auto) 36.1 (25-40) % [place] % (Auto) 9.0 (3-14) % Eos % (Auto) 2.8 (2-4) % Baso % (Auto) 1.0 (0-2) % Neut # (Auto) 4000 (5621-5513) /uL Lymph # (Auto) 2800 (6254-7865) /uL [place] # (Auto) 700 (0-900) /uL Eos # (Auto) 200 (0-450) /uL Baso # (Auto) 100 (0-100) /uL PT 12.2 (9.4-12.5) SECONDS INR 1.1 (0.9-1.3) APTT 33 (25.1-36.5) SECONDS Sodium 138 (137-145) mmol/L Potassium 4.2 (3.4-5.1) mmol/L Chloride 105 (98-107) mmol/L Carbon Dioxide 25 (22-32) mmol/L BUN 18 H (7-17) mg/dL Creatinine 0.78 (0.52-1.04) mg/dL Estimated GFR > 60 (>60) mL/min BUN/Creatinine Ratio 23.1 H (6-22) Glucose 111 H (70-99) mg/dL Calcium 9.2 (8.4-10.2) mg/dL Magnesium 1.9 (1.6-2.3) mg/dL Total Bilirubin 0.3 (0.2-1.3) mg/dL AST 28 (14-36) IU/L ALT 19 (<35) IU/L Alkaline Phosphatase 83 (38-126) U/L Total Creatine Kinase 111 (30-135) U/L Troponin I < 0.012 < 0.012 (0.01-0.034) ng/mL NT-Pro-B Natriuret Pep 326 (<450) pg/mL Total Protein 7.1 (6.3-8.2) g/dL Albumin 4.3 (3.5-5.0) g/dL Globulin 2.8 (1.7-4.1) g/dL Albumin/Globulin Ratio 1.5 (1.0-2.8) Lipase 132 (23-300) U/L [facility] Narrative Medical decision making narrative: 79-year-old female with history of COPD, atrial fibrillation on chronic anticoagulation and beta blockade, topical inhaler use, no home oxygen. Has recent dyspnea, shoulder blade area discomfort, mid back pain, some anterior abdominal discomfort. No known aortic problems. Afebrile. On monitor has atrial fibrillation known, ventricular response rate 90-110 range. We will give IV metoprolol dose. EKG chest x-ray labs pending. DDx pneumonia, COPD exacerbation, pulmonary embolism seems less likely on Eliquis, consider aortic pathology however, consider referred pain from DONNY or other GI process. IV Protonix. Nebulized DuoNeb. EKG shows atrial fibrillation with ventricular rate 107. Chest x-ray no acute changes, see tele radiology report. Lab data: White blood cell count 7800, hemoglobin 14.7, platelets adequate. Glucose 111. Renal function unremarkable, normal serum CO2 and electrolytes. Liver functions normal. Lipase normal. BNP not elevated. Troponin negative/unmeasurable. Renal function adequate. CTA chest with IV only CT abdomen and pelvis imaging pending. IV fluid bolus. 0650, CTA chest shows no pulmonary emboli, hazy density in the lungs, atelectasis versus mild edema, no consolidation. See tele radiology report. CT abdomen and pelvis no acute changes. See tele radiology report. 0700, repeat troponin to be drawn later this hour, signed out to Dr Moreland. Repeat troponin negative. Patient is stable at this time. Gave an additional dose of metoprolol succinate 25 mg p.o. now. Patient will continue with this medication and follow up with PCP and Cardiology. Discharge Plan Departure Patient Disposition: Home Clinical Impression: Atrial fibrillation with rapid ventricular response Instructions: DI for Arrhythmias Activity Restrictions/Additional Instructions: Stopped taking bisoprolol. Continue with new medication metoprolol succinate 25 mg 1 tab p.o. daily for the next 2 weeks and follow up with her PCP and possibly a Cardiology referral as well. Continue with other medications as prescribed. Come back to ER if having any new symptoms of chest pain shortness of breath. Prescriptions: New metoprolol succinate 25 mg tablet extended release 24 hr 25 mg PO DAILY Qty: 14 0RF No Action omeprazole 20 mg capsule,delayed release(DR/EC) 20 mg PO DAILY Qty: 90 2RF Rx Instructions: pt only takes it as needed cetirizine 10 MG tablet 10 mg PO PRN PRN (Reason: Allergic Symptoms) Qty: 0 multivitamin [Multiple Vitamins] 1 EACH tablet 1 tab PO QDAY Qty: 0 Eliquis 5 mg tablet 5 mg PO BID Qty: 60 2RF fluticasone propionate 110 mcg/actuation HFA aerosol inhaler 1 inh inhalation BID PRN (Reason: asthma) Qty: 12 2RF bisoprolol fumarate 5 mg tablet 5 mg PO DAILY Referrals: Rocio Thomas MD [Primary Care Provider, Family Practice] Stand Alone Forms: Patient Portal/API
[2024-10-02 05:37] LABS: Add Manual Diff / Slide Review NO; Hematocrit 43.5 % (36-46); Hemoglobin 14.7 g/dL (12.0-16.0); Lymphocytes Absolute Auto 2800 /uL (1100-4500); Mean Corpuscular HGB Conc 33.9 % (30-36); Mean Corpuscular Hemoglobin 30.5 PG (26-34); Mean Corpuscular Volume 89.9 fL (80-100); Platelet Count 280 X10^3/uL (150-400)
[2024-10-02 05:47] LABS: INR 1.1 (0.9-1.3); Prothrombin Time 12.2 SECONDS (9.4-12.5)
[2024-10-02 05:49] LABS: PTT Partial Thromboplastin Tim 33 SECONDS (25.1-36.5)
[2024-10-02 05:50] LABS: Alanine Aminotransferase 19 IU/L (<35); Albumin 4.3 g/dL (3.5-5.0); Albumin Globulin Ratio 1.5 (1.0-2.8); Alkaline Phosphatase 83 U/L (38-126); Blood Urea Nitrogen 18 mg/dL (7-17); Calcium 9.2 mg/dL (8.4-10.2); Carbon Dioxide 25 mmol/L (22-32); Chloride 105 mmol/L (98-107); Creatine Kinase 111 U/L (30-135); Estimated Glomerular Filt Rate > 60 mL/min (>60); Globulin 2.8 g/dL (1.7-4.1); Glucose 111 mg/dL (70-99); HEMOLYSIS < 15 (0-50); Lipase 132 U/L (23-300); Magnesium 1.9 mg/dL (1.6-2.3); Potassium 4.2 mmol/L (3.4-5.1); Sodium 138 mmol/L (137-145); Total Protein 7.1 g/dL (6.3-8.2)
[2024-10-02 06:02] LABS: NT-proBNP (BNP-Adult 18+) 326 pg/mL (<450); Troponin I < 0.012 ng/mL (0.01-0.034)
--- NOTE | 2024-10-02 06:06 | DI.CT.S_ITS ---
PROCEDURE: CT ANGIO CHEST PE PROTOCOL INDICATIONS: chest pain, dyspnea TECHNIQUE: After the administration of intravenous contrast, 2 mm thick sections acquired from the pulmonary apices to the posterior costophrenic angles. 3-dimensional maximum intensity projection (MIP) coronal and sagittal reformats were then acquired through the thorax. For radiation dose reduction, the following was used: automated exposure control, adjustment of mA and/or kV according to patient size. COMPARISON: None. FINDINGS: Image quality: Diagnostic. Pulmonary arteries: Pulmonary arteries are normal in size, and demonstrate no intraluminal filling defects to suggest central pulmonary embolism. Lower Neck: No enlarged lymph nodes. Thyroid: No thyroid nodules which require sonographic follow up, per consensus guidelines. Axillae: No enlarged lymph nodes. Chest Wall: Unremarkable. Bones: Visualized osseous structures appear intact without acute fracture or focal destructive lesion. No acute compression fractures of the imaged spine. Status post bilateral shoulder arthroplasties resulting in moderate beam hardening artifact of the surrounding soft tissues. Lungs and Pleura: No pneumothorax or pleural effusions. Moderate dependent atelectasis of the bilateral hemithoraces. Mild patchy ground-glass opacities noted in the bilateral hemithoraces. Mild smooth septal thickening. Visualized airways appear clear. No suspicious pulmonary nodules. Heart: Heart size is mildly enlarged. No pericardial effusion. Thoracic Vessels: No aortic aneurysm. Mediastinum and Janet: No enlarged lymph nodes. Esophagus: No wall thickening. Small hiatal hernia. Upper Abdomen: Visualized upper abdomen solid organs and bowel loops appear normal. IMPRESSION: No pulmonary embolus. Patchy ground-glass opacities with smooth septal thickening and mild cardiomegaly may represent pulmonary edema. However, an infectious or inflammatory process may have a similar appearance if clinically appropriate. No focal consolidation. No suspicious pulmonary nodules. Small hiatal hernia. 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 Dictated by: John Crawford M.D. on 10/02/2024 at 7:22 Approved by: John Crawford M.D. on 10/02/2024 at 7:27
--- NOTE | 2024-10-02 06:06 | DI.CT.S_ITS ---
PROCEDURE: CT ABDOMEN PELVIS W CON INDICATIONS: abd pain back pain TECHNIQUE: After the administration of intravenous contrast, axial sections acquired from the lung bases to the pubic symphysis. Coronal and sagittal reformats were performed. For radiation dose reduction, the following was used: automated exposure control, adjustment of mA and/or kV according to patient size. COMPARISON: None. FINDINGS: Image quality: Diagnostic. Lower Chest: Bibasilar atelectasis. Small hiatal hernia. ABDOMEN: Liver: No solid mass. There is diffuse hypoattenuation of the liver parenchyma relative to the spleen compatible with hepatic steatosis. Gallbladder: Density in the dependent portions of gallbladder may represent a noncalcified gallstone versus focal sludge. No significant gallbladder wall thickening. Biliary ducts: No biliary dilation. Pancreas: Homogeneous enhancement without focal lesions or pancreatic ductal dilatation. No peripancreatic inflammation or organized fluid collections. Spleen: Size is within normal limits. Adrenal Glands: Mild bilateral adrenal hyperplasia. Kidneys and Ureters: No hydronephrosis. No solid mass. No complex renal cystic lesion which requires follow up. Stomach and Bowel: Normal colonic caliber, without significant wall thickening. No evidence for small bowel obstruction or associated inflammatory changes. Postsurgical changes of prior appendectomy. Moderate fecal burden seen throughout the colon. Peritoneum: No abnormal intraperitoneal fluid. No free air. Ventral Wall: No significant ventral hernia. Abdominal Nodes: No retroperitoneal or mesenteric adenopathy by size criteria. Vessels: Aorta and inferior vena cava are normal in size. PELVIS: Pelvic Organs: Unremarkable. Bladder: No bladder wall thickening, accounting for underdistention. Pelvic Nodes: No enlarged lymph nodes. Miscellaneous: No inguinal hernias are seen. Bones: No aggressive osseous abnormality. No acute vertebral body compression fractures. Multilevel spondylitic changes throughout the imaged spine. No suspicious osseous lesions. Status post right hip arthroplasty. IMPRESSION: 1. CT abdomen and pelvis without acute abnormalities to explain patient's symptoms. 2. Suspected small gallstone without CT evidence for acute cholecystitis. Recommend clinical correlation. Consider further evaluation with right upper quadrant ultrasound if clinically indicated. 3. Other chronic findings as above. No significant discrepancy with the wallpaper installer radiology preliminary report. Dictated by: John Crawford M.D. on 10/02/2024 at 7:28 Approved by: John Crawford M.D. on 10/02/2024 at 7:32
[2024-10-02] MEDS: PANTOPRAZOLE 40 MG VIAL IV (06:50)
[2024-10-02] MEDS: METOPROLOL TARTRATE 5 MG/5 ML INJ IV (06:50)
[2024-10-02] MEDS: ALBUTEROL 2.5 MG/3 ML NEB (ADULT) INH (07:05)
[2024-10-02 08:03] LABS: Troponin I < 0.012 ng/mL (0.01-0.034)
[2024-10-02] MEDS: METOPROLOL ER 25 MG TABLET PO (08:03)
== END 2024-10-02 08:38 | disposition home or self-care (01) ==
PROVIDERS: Emergency Medicine; Emergency Provider Family Medicine; PCP Family Medicine
DX: I48.91 Unspecified atrial fibrillation (principal); R10.9 Unspecified abdominal pain; M54.89 Other dorsalgia; Z79.01 Long term (current) use of anticoagulants; J45.909 Unspecified asthma, uncomplicated
CPT/HCPCS: 36415; 71045; 71275; 74177; 80053; 82550; 83690; 83735; 83880; 84484; 85025; 85610; 85730; 93005; 94640; 96374; 96375; 99284; J2470; J7613; Q9967

== ENCOUNTER 2024-12-04 02:29 | Emergency (ER) | payer MEDICARE, OTHER, SELFPAY ==
[2024-05-22 13:46] VITALS: BMI 24.0
[2024-12-04] VITALS (18 sets, daily range): BP systolic 106–147; BP diastolic 65–98; PULSE 64–155; RESP 16–25; TEMP 36.8; O2SAT 91–99; BMI 23.8
--- NOTE | 2024-12-04 02:37 | DI.RAD.S_ITS ---
PROCEDURE: XR CHEST 1V INDICATIONS: Chest Pain TECHNIQUE: One view of the chest was acquired. COMPARISON: [facility], CR, XR CHEST 1V, 10/02/2024, 5:18. [facility], CR, XR CHEST 1V, 05/21/2024, 23:26. FINDINGS: Surgical changes and devices: Bilateral shoulder arthroplasties. Lungs and pleura: Lungs are clear. No pleural effusions or pneumothorax. Mediastinum: Mediastinal contours appear normal. Heart size is normal. Bones and chest wall: No suspicious bony lesions. Overlying soft tissues appear unremarkable. IMPRESSION: No acute cardiopulmonary abnormality is seen. Agree with preliminary report. Dictated by: Jayesh Lee M.D. on 12/04/2024 at 8:46 Approved by: Jayesh Lee M.D. on 12/04/2024 at 8:46
--- NOTE | 2024-12-04 02:41 | EKG_ITS ---
[address] [address] [place] [address] Test Date: 2024-12-04 Pat Name: Alicia Richmond Department: Room: Gender: Female Mine Laborer: DENILSON clifford : 1945 Requested By: Order Number: [id number] Reading MD: Gerhard Shipman Measurements Intervals [place] Rate: 112 P: OK: QRS: -45 QRSD: 90 T: 55 QT: 320 QTc: 436 Interpretive Statements Atrial fibrillation with rapid ventricular response with premature ventricular or aberrantly conducted complexes Left anterior fascicular block Electronically Signed On 12-06-2024 8:05:24 PDT by Gerhard Shipman
--- NOTE | 2024-12-04 02:49 | ED_ITS ---
HPI - Arrhythmia/Palpitations General Chief Complaint: Arrhythmia/Palpitations Stated Complaint: AFIB, rapid heart rate Time Seen by Provider: 12/04/24 02:34 Source: patient Mode of arrival: Ambulatory History of Present Illness HPI narrative: 79-year-old female with a history of paroxysmal atrial fibrillation comes in with fluttering and palpitations that she is feeling over the left side of her chest. Patient denies any shortness of breath or other symptoms. She is on chronic anticoagulation and has been taking her Eliquis 5 mg b.i.d. chronically. Patient denies having a ediscovery project manager at this time. She comes in with an atrial fibrillation with rapid ventricular rate picture. She was put on metoprolol 25 mg p.o. daily at her last visit in the ER but sometimes forgets to take her dose of metoprolol. She does have a history of asthma as well and uses a rapid acting inhaler as needed. Related Data Home Medications ?Medication ?Instructions ?Recorded ?Confirmed cetirizine 10 mg tablet 10 mg PO PRN PRN Allergic Sy mptoms 06/03/16 09/15/24 ##0 multivitamin (Multiple Vitamins 1 tab PO QDAY ##0 12/0609/15/24 tablet) Previous Rx's ?Medication ?Instructions ?Recorded apixaban 5 mg tablet (Eliquis) 5 mg PO BID #60 tabs omeprazole 20 mg capsule,delayed 20 mg PO DAILY #90 ca ps 07/13/24 release fluticasone propionate 110 1 inh inhalation BID PRN as thma 10/09/24 mcg/actuation HFA aerosol inhaler #12 grams metoprolol succinate 25 mg 25 mg PO DAILY #60 tabs 06/30 tablet,extended release 24 hr albuterol sulfate 90 mcg/actuation 2 puff inhalation Q 4-6H PRN 10/26/24 aerosol inhaler (Ventolin HFA) wheezing #18 grams Allergies Allergy/AdvReac Type Severity Reaction Status Date / Time cephalexin (From KEFLEX) AdvReac Intermediate rash Verified 12/04/24 02:42 morphine (MORPHINE) AdvReac Intermediate rash Verified 12/04/24 02:42 high dose flu shot Allergy Throat Uncoded 12/04/24 02:42 closing, hoarsness Review of Systems Review of Systems ROS Unobtainable: All systems reviewed & are unremarkable except as noted in HPI and below Patient History Medical History (Updated 12/04/24 @ 03:52 by Barrie Moreland MD) Alzheimer's dementia Age-related cognitive decline Altered mental status Seasonal allergies Upper back pain Elevated blood pressure reading Heartburn Asthma Chronic rhinosinusitis Mixed hyperlipidemia Family history of cardiovascular disease Seasonal allergic rhinitis due to pollen Surgical History History of ankle surgery History of replacement of both shoulder joints Status post appendectomy Status post knee surgery Family History Father Leukemia Cancer Social History household members: none second hand exposure: No alcohol intake: current substance use type: does not use Smoking Status: Never smoker alcohol intake frequency: a few times a week Exam Narrative Exam Narrative: General: Patient appears to be in no acute distress, acting appropriately Head: normocephalic, atraumatic, HEENT: Pupils equal round reactive, eyes tracking well, neck supple, no JVD Heart: Irregularly irregular, no murmurs, rubs, or gallops heard Lungs: clear to auscultation, no adventitious sounds Abdomen: soft , nontender, nondistended, positive bowel sounds Neurological: no focal neurological signs, moving all extremities well, alert and oriented x3, Psych: good judgment ,good insight, mood is normal. Initial Vital Signs Initial Vital Signs: Vital Signs Temperature 98.2 F 12/04/24 02:42 Pulse Rate 80 12/04/24 02:42 Respiratory Rate 16 12/04/24 02:42 Blood Pressure 138/89 12/04/24 02:42 Pulse Oximetry 97 12/04/24 02:42 Oxygen Delivery Method Room Air 12/04/24 02:42 Procedures Cardioversion Time of Cardioversion: 03:00 Consent Signed: Yes Indication: Symptomatic Atrial fibrillation with rapid ventricular rate Stability: Stable Number of attempts (shocks): 1 Joules used: 120 Cardiac rhythm post-cardioversion: normal sinus rhythm Procedural Sedation Time of procedure: 03:00 Consent signed: Yes Time out performed: Yes Indication: cardioversion ASA Class: I Time of Last PO Intake: 07:00 IV Propofol dose (mg): 70 Intraservice time/total sedation time (min): 17 ED Sedation Level: Moderate (Concious) Patient Tolerated Procedure: Well and No complications Complications: hypoxia Interventions: Airway repositioned and Oxygen applied Course Orders Ordered: ED Orders 12/04/24 02:36 EKG-12 Lead Stat 12/04/24 02:37 XR chest 1V Stat Complete Blood Count AUTO DIFF Stat Comprehensive Metabolic Panel Stat Lipase Stat Magnesium Stat NT-proBNP (BNP-Adult 18+) Stat PTT Partial Thromboplastin Sánchez Stat Prothrombin Time INR Stat Troponin & CK Cardiac Panel Stat Discontinued Medications Propofol (Propofol 200 Mg/20 Ml Vial) 125 mg 2 mg/kg (125 mg) IV NOW ONE Stop: 12/04/24 03:05 Last Admin: 12/04/24 03:15 Dose: 70 mg Reevaluation(s) Reevaluation #1: Upon re-evaluation, patient is stable and asymptomatic. Patient's rhythm has returned to normal sinus rhythm. Time: 03:45 Vital Signs Vital signs: Vital Signs - 8 hr 12/04/24 02:42 12/04/24 02:43 12/04/24 02:55 Temperature 98.2 F Pulse Rate 80 155 H 149 H Respiratory Rate 16 17 25 H Blood Pressure 138/89 Pulse Oximetry 97 98 99 Oxygen Delivery Method Room Air 12/04/24 02:55 12/04/24 03:00 12/04/24 03:00 Temperature Pulse Rate 132 H Respiratory Rate 18 Blood Pressure 126/88 147/87 H Pulse Oximetry 97 Oxygen Delivery Method 12/04/24 03:11 12/04/24 03:11 12/04/24 03:13 Temperature Pulse Rate 143 H 143 H Respiratory Rate 22 Blood Pressure 135/98 H 135/98 H Pulse Oximetry 98 98 Oxygen Delivery Method 12/04/24 03:16 12/04/24 03:16 12/04/24 03:20 Temperature Pulse Rate 75 Respiratory Rate Blood Pressure 106/69 119/68 Pulse Oximetry 91 Oxygen Delivery Method 12/04/24 03:20 12/04/24 03:25 12/04/24 03:25 Temperature Pulse Rate 67 70 Respiratory Rate Blood Pressure 119/71 Pulse Oximetry 98 96 Oxygen Delivery Method 12/04/24 03:29 12/04/24 03:30 12/04/24 03:31 Temperature Pulse Rate 71 71 Respiratory Rate 24 Blood Pressure 114/65 Pulse Oximetry 97 Oxygen Delivery Method 12/04/24 03:31 Temperature Pulse Rate 72 Respiratory Rate Blood Pressure Pulse Oximetry 98 Oxygen Delivery Method MDM - Arrhythmia/Palpitations Differential Diagnosis Differential diagnosis: Likely palpitations, artial fibrillation and artial flutter Lab Data 12/04/24 02:52 12/04/24 02:52 Labs: Lab Results 12/04/24 Range/Units 02:52 WBC 6.7 (4.5-11.0) X10^3/uL RBC 4.66 (4.0-5.2) X10^6/uL Hgb 14.0 (12.0-16.0) g/dL Hct 41.3 (36-46) % MCV 88.6 (80-100) fL MCH 30.1 (26-34) PG MCHC 33.9 (30-36) % RDW 13.6 (11.6-14.8) % Plt Count 247 (150-400) X10^3/uL Neut % (Auto) 56.8 (50-75) % Lymph % (Auto) 29.9 (25-40) % [place] % (Auto) 10.2 (3-14) % Eos % (Auto) 2.5 (2-4) % Baso % (Auto) 0.6 (0-2) % Neut # (Auto) 3800 (5134-0841) /uL Lymph # (Auto) 2000 (7334-0883) /uL [place] # (Auto) 700 (0-900) /uL Eos # (Auto) 200 (0-450) /uL Baso # (Auto) 0 (0-100) /uL PT 13.0 H (9.4-12.5) SECONDS INR 1.1 (0.9-1.3) APTT 33 (25.1-36.5) SECONDS Sodium 136 L (137-145) mmol/L Potassium 4.2 (3.4-5.1) mmol/L Chloride 107 (98-107) mmol/L Carbon Dioxide 24 (22-32) mmol/L BUN 19 H (7-17) mg/dL Creatinine 0.77 (0.52-1.04) mg/dL Estimated GFR > 60 (>60) mL/min BUN/Creatinine Ratio 24.7 H (6-22) Glucose 117 H (70-99) mg/dL Calcium 9.5 (8.4-10.2) mg/dL Magnesium 1.8 (1.6-2.3) mg/dL Total Bilirubin 0.3 (0.2-1.3) mg/dL AST 29 (14-36) IU/L ALT 24 (<35) IU/L Alkaline Phosphatase 86 (38-126) U/L Total Creatine Kinase 109 (30-135) U/L Troponin I < 0.012 (0.01-0.034) ng/mL NT-Pro-B Natriuret Pep 345 (<450) pg/mL Total Protein 7.0 (6.3-8.2) g/dL Albumin 4.3 (3.5-5.0) g/dL Globulin 2.7 (1.7-4.1) g/dL Albumin/Globulin Ratio 1.6 (1.0-2.8) Lipase 103 (23-300) U/L Imaging Data Chest x-ray: My Impression: No acute cardiopulmonary process. ECG Data Interpretation: Initial EKG showed an atrial fibrillation with rapid ventricular response with PVC picture. Left anterior fascicular block at 112 beats per minute. Previous EKG showed the same Atrial fibrillation with rapid ventricular response with left anterior fascicular block at 108 bpm Post electrical cardioversion EKG showed a normal sinus rhythm at 69 beats per minute left anterior fascicular block. No UT interval changes or STT wave changes. MDM Narrative Medical decision making narrative: 79-year-old female with paroxysmal symptomatic atrial fibrillation came in with an atrial fibrillation in rapid ventricular rate picture. Patient is on chronic anticoagulation and so it was determined to do an electrical cardioversion for her. Patient was successfully cardioverted into a normal sinus rhythm. Patient will continue with home metoprolol dose upon discharge and stay on her home medications until she sees a ediscovery project manager. Discharge Plan Departure Patient Disposition: Home Clinical Impression: Atrial fibrillation with rapid ventricular response Instructions: DI for Atrial Fibrillation Activity Restrictions/Additional Instructions: Later this evening, take the metoprolol 25 mg tab along with the Eliquis 5 mg. Stay on metoprolol succinate 25 mg p.o. daily until visitation with ediscovery project manager. Follow up with primary care physician this week as planned for a cardiology referral. Return to the ED if ever having any new chest pain, palpitations that wont go away. Prescriptions: No Action omeprazole 20 mg capsule,delayed release(DR/EC) 20 mg PO DAILY Qty: 90 2RF Rx Instructions: pt only takes it as needed fluticasone propionate 110 mcg/actuation HFA aerosol inhaler 1 inh inhalation BID PRN (Reason: asthma) Qty: 12 2RF metoprolol succinate 25 mg tablet extended release 24 hr 25 mg PO DAILY Qty: 60 1RF cetirizine 10 MG tablet 10 mg PO PRN PRN (Reason: Allergic Symptoms) Qty: 0 multivitamin [Multiple Vitamins] 1 EACH tablet 1 tab PO QDAY Qty: 0 Eliquis 5 mg tablet 5 mg PO BID Qty: 60 2RF albuterol sulfate [Ventolin HFA] 90 mcg/actuation HFA aerosol inhaler 2 puff INHALATION Q4-6H PRN (Reason: wheezing) Qty: 18 3RF Referrals: Herminio Almonte MD [Physician, Cardiology] Rocio Thomas MD [Primary Care Provider, Family Practice] Stand Alone Forms: Patient Portal/API
[2024-12-04 03:09] LABS: INR 1.1 (0.9-1.3); Prothrombin Time 13.0 SECONDS (9.4-12.5)
[2024-12-04 03:12] LABS: Add Manual Diff / Slide Review NO; Hematocrit 41.3 % (36-46); Hemoglobin 14.0 g/dL (12.0-16.0); Lymphocytes Absolute Auto 2000 /uL (1100-4500); Mean Corpuscular HGB Conc 33.9 % (30-36); Mean Corpuscular Hemoglobin 30.1 PG (26-34); Mean Corpuscular Volume 88.6 fL (80-100); PTT Partial Thromboplastin Tim 33 SECONDS (25.1-36.5); Platelet Count 247 X10^3/uL (150-400)
[2024-12-04 03:13] LABS: Alanine Aminotransferase 24 IU/L (<35); Albumin 4.3 g/dL (3.5-5.0); Albumin Globulin Ratio 1.6 (1.0-2.8); Alkaline Phosphatase 86 U/L (38-126); Blood Urea Nitrogen 19 mg/dL (7-17); Calcium 9.5 mg/dL (8.4-10.2); Carbon Dioxide 24 mmol/L (22-32); Chloride 107 mmol/L (98-107); Creatine Kinase 109 U/L (30-135); Estimated Glomerular Filt Rate > 60 mL/min (>60); Globulin 2.7 g/dL (1.7-4.1); Glucose 117 mg/dL (70-99); HEMOLYSIS < 15 (0-50); Lipase 103 U/L (23-300); Magnesium 1.8 mg/dL (1.6-2.3); Potassium 4.2 mmol/L (3.4-5.1); Sodium 136 mmol/L (137-145); Total Protein 7.0 g/dL (6.3-8.2)
[2024-12-04 03:25] LABS: NT-proBNP (BNP-Adult 18+) 345 pg/mL (<450); Troponin I < 0.012 ng/mL (0.01-0.034)
--- NOTE | 2024-12-04 03:28 | EKG_ITS ---
[address] [address] Test Date: 2024-12-04 Pat Name: Alicia Richmond Department: Room: Gender: Female [employer] Operator: JEFF : 1945 Requested By: Order Number: [id number] Reading MD: Gerhard Shipman Measurements Intervals [place] Rate: 69 P: 43 NM: 174 QRS: -46 QRSD: 88 T: 33 QT: 394 QTc: 422 Interpretive Statements Normal sinus rhythm Left anterior fascicular block Electronically Signed On 12-06-2024 8:05:40 PDT by Gerhard Shipman
== END 2024-12-04 04:05 | disposition home or self-care (01) ==
PROVIDERS: Emergency Provider Family Medicine; PCP Family Medicine
DX: I48.20 Chronic atrial fibrillation, unspecified (principal); Z79.01 Long term (current) use of anticoagulants
CPT/HCPCS: 71045; 80053; 82550; 83690; 83735; 83880; 84484; 85025; 85610; 85730; 92960; 93005; 99152; 99284; 99285; J2704

== ENCOUNTER 2025-01-09 06:18 | Emergency (ER) | payer MEDICARE, OTHER, SELFPAY ==
[2024-05-22 13:46] VITALS: BMI 24.0
[2025-01-09] VITALS (10 sets, daily range): BP systolic 159–195; BP diastolic 72–83; PULSE 43–48; RESP 11–20; TEMP 36.6; O2SAT 96–98; BMI 23.1
--- NOTE | 2025-01-09 06:21 | DI.RAD.S_ITS ---
PROCEDURE: XR CHEST 1V
--- NOTE | 2025-01-09 06:21 | EKG_ITS ---
[facility]
--- NOTE | 2025-01-09 06:51 | PC.NURSE ---
pt states she woke at 0100 to take her 2nd dose of metoprolol as Rx, thens she started having a tightness in her chest she was trying to take her pulse with her pulse ox but it kept reading so low a number so she tried another and it kept showing a really low no so she decided to come in, pt has a rambling speech, and is talking trying to explain about the reasons her doctor changed/increased her medication. then she starts to ramble about why she didn't come earlier, how she doesn't like to take medication and several other things before being able to refocus pt
[2025-01-09 07:14] LABS: Add Manual Diff / Slide Review NO; Hematocrit 38.8 % (36-46); Hemoglobin 13.1 g/dL (12.0-16.0); Lymphocytes Absolute Auto 1300 /uL (1100-4500); Mean Corpuscular HGB Conc 33.8 % (30-36); Mean Corpuscular Hemoglobin 29.8 PG (26-34); Mean Corpuscular Volume 88.1 fL (80-100); Platelet Count 210 X10^3/uL (150-400)
[2025-01-09 07:17] LABS: Alanine Aminotransferase 25 IU/L (<35); Albumin 4.1 g/dL (3.5-5.0); Albumin Globulin Ratio 1.5 (1.0-2.8); Alkaline Phosphatase 87 U/L (38-126); Blood Urea Nitrogen 19 mg/dL (7-17); Calcium 9.1 mg/dL (8.4-10.2); Carbon Dioxide 23 mmol/L (22-32); Chloride 106 mmol/L (98-107); Creatine Kinase 66 U/L (30-135); Estimated Glomerular Filt Rate > 60 mL/min (>60); Globulin 2.8 g/dL (1.7-4.1); Glucose 100 mg/dL (70-99); HEMOLYSIS < 15 (0-50); Lipase 93 U/L (23-300); Magnesium 1.9 mg/dL (1.6-2.3); Potassium 4.1 mmol/L (3.4-5.1); Sodium 137 mmol/L (137-145); Total Protein 6.9 g/dL (6.3-8.2)
[2025-01-09 07:18] LABS: INR 1.1 (0.9-1.3); Prothrombin Time 12.7 SECONDS (9.4-12.5)
[2025-01-09 07:21] LABS: PTT Partial Thromboplastin Tim 33 SECONDS (25.1-36.5)
[2025-01-09 07:28] LABS: NT-proBNP (BNP-Adult 18+) 207 pg/mL (<450); Troponin I < 0.012 ng/mL (0.01-0.034)
--- NOTE | 2025-01-09 07:28 | ED_ITS ---
HPI - Arrhythmia/Palpitations
--- NOTE | 2025-01-09 07:28 | ED.ARRPALP ---
HPI - Arrhythmia/Palpitations General Chief Complaint: Arrhythmia/Palpitations Stated Complaint: per Patient , possible AFIB Time Seen by Provider: 01/09/25 06:28 Source: patient, RN notes reviewed and old records reviewed Mode of arrival: Ambulatory Limitations: no limitations History of Present Illness HPI narrative: 79-year-old female with a history of paroxysmal atrial fibrillation on Eliquis, history of asthma presents with complaint of chest heaviness. Patient thought it might be her atrial fibrillation. She notes she was here in November had a cardioversion. She states she woke up this morning with a sense of chest heaviness. She also notes that she has been splinting her medications she did not think she can take her Eliquis with her metoprolol so she was supposed to take it at 2:[address] this morning any way. Patient states that she symptoms resolved before she got to the emergency department she denies any shortness of breath no diaphoresis no nausea or vomiting no swelling in her extremities no issues with bowel movements or urination. She is unsure if this symptoms might has been for her atrial fibrillation she does not always sense when she has AFib. She was initially on Eliquis and diltiazem but changed to metoprolol she had her metoprolol increased about a week ago but noted with her pulse oximeter that her heart rate was quite low. She states medications are Eliquis, metoprolol, fluticasone and albuterol inhaler as needed. She notes her heart rates typically runs in the 50s to 60s. She follows with Dr. Thomas from primary care and Dr. Olivares for primary care. Patient has a electrical cardioversion on 12/04/2024 here in the emergency department. Related Data Home Medications ?Medication ?Instructions ?Recorded ?Confirmed cetirizine 10 mg tablet 10 mg PO PRN PRN Allergic Symptoms 06/03/16 12/07/24 ##0 multivitamin (Multiple Vitamins 1 tab PO QDAY ##0 12/16/16 12/07/24 tablet) Previous Rx's ?Medication ?Instructions ?Recorded apixaban 5 mg tablet (Eliquis) 5 mg PO BID #60 tabs 06/30/23 omeprazole 20 mg capsule,delayed 20 mg PO DAILY #90 caps 07/13/24 release fluticasone propionate 110 1 inh inhalation BID PRN asthma 10/09/24 mcg/actuation HFA aerosol inhaler #12 grams metoprolol succinate 25 mg 25 mg PO DAILY #60 tabs 10/09/24 tablet,extended release 24 hr albuterol sulfate 90 mcg/actuation 2 puff inhalation Q4-6H PRN 10/26/24 aerosol inhaler (Ventolin HFA) wheezing #18 grams Allergies Allergy/AdvReac Type Severity Reaction Status Date / Time cephalexin (From KEFLEX) AdvReac Intermediate rash Verified 01/09/25 06:31 morphine (MORPHINE) AdvReac Intermediate rash Verified 01/09/25 06:31 high dose flu shot Allergy Throat Uncoded 01/09/25 06:31 closing, hoarsness Review of Systems Review of Systems ROS Unobtainable: All systems reviewed & are unremarkable except as noted in HPI and below Patient History Medical History Alzheimer's dementia Age-related cognitive decline Altered mental status Seasonal allergies Upper back pain Elevated blood pressure reading Heartburn Asthma Chronic rhinosinusitis Mixed hyperlipidemia Family history of cardiovascular disease Seasonal allergic rhinitis due to pollen Surgical History History of ankle surgery History of replacement of both shoulder joints Status post appendectomy Status post knee surgery Family History Father Leukemia Cancer Social History household members: none Smoking Status: Never smoker second hand exposure: No alcohol intake: current substance use type: does not use Smoking Status: Never smoker alcohol intake frequency: a few times a week Exam Narrative Exam Narrative: GENERAL: Alert and oriented x three, thin elderly female in mild distress HEENT: Head normocephalic, atraumatic, EOMI, pupils reactive, face symmetric, moist mucous membranes NECK: Supple, full range of motion CARDIOVASCULAR: Bradycardic but regular rate and rhythm without murmurs, rubs or gallops. No JVD. No edema bilateral lower extremities. RESPIRATORY: Breath sounds equal bilaterally, no wheezes rales or rhonchi. No tachypnea or accessory muscle use. ABDOMEN: Soft, nontender. Normoactive bowel sounds all 4 quadrants. No guarding or rebound, rigidity, no mass : No CVA tenderness EXTREMITIES: Normal range of motion, no clubbing or edema. Neurovascularly intact NEUROLOGICAL: Cranial nerves II through XII grossly intact. Moving all extremities SKIN: Warm, dry, no petechiae, no rashes or lesions. Initial Vital Signs Initial Vital Signs: Vital Signs Temperature 97.8 F 01/09/25 06:31 Pulse Rate 48 L 01/09/25 06:31 Respiratory Rate 16 01/09/25 06:31 Blood Pressure 195/83 H 01/09/25 06:31 Pulse Oximetry 97 01/09/25 06:31 Oxygen Delivery Method Room Air 01/09/25 06:31 Course Orders Ordered: ED Orders 01/09/25 06:44 Complete Blood Count AUTO DIFF Stat Comprehensive Metabolic Panel Stat Lipase Stat Magnesium Stat NT-proBNP (BNP-Adult 18+) Stat PTT Partial Thromboplastin Sánchez Stat Prothrombin Time INR Stat Troponin & CK Cardiac Panel Stat 01/09/25 08:33 Trop I [Troponin I] Stat Vital Signs Vital signs: Vital Signs - 8 hr 01/09/25 08:00 01/09/25 08:01 01/09/25 08:01 Pulse Rate 43 L 43 L Respiratory Rate 14 17 Blood Pressure 186/79 H Pulse Oximetry 97 97 01/09/25 08:30 01/09/25 08:34 01/09/25 08:34 Pulse Rate 44 L Respiratory Rate 20 12 Blood Pressure 159/72 H Pulse Oximetry 98 01/09/25 09:00 01/09/25 09:00 01/09/25 09:30 Pulse Rate 45 L 44 L Respiratory Rate 17 Blood Pressure 174/75 H Pulse Oximetry 97 97 01/09/25 09:31 01/09/25 09:31 Pulse Rate 43 L Respiratory Rate 17 Blood Pressure 171/72 H Pulse Oximetry 97 MDM - Arrhythmia/Palpitations Lab Data 01/09/25 06:44 01/09/25 06:44 Labs: Lab Results 01/09/25 01/09/25 Range/Units 06:44 08:33 WBC 4.7 (4.5-11.0) X10^3/uL RBC 4.40 (4.0-5.2) X10^6/uL Hgb 13.1 (12.0-16.0) g/dL Hct 38.8 (36-46) % MCV 88.1 (80-100) fL MCH 29.8 (26-34) PG MCHC 33.8 (30-36) % RDW 13.9 (11.6-14.8) % Plt Count 210 (150-400) X10^3/uL Neut % (Auto) 60.2 (50-75) % Lymph % (Auto) 27.7 (25-40) % [place] % (Auto) 8.7 (3-14) % Eos % (Auto) 2.6 (2-4) % Baso % (Auto) 0.8 (0-2) % Neut # (Auto) 2900 (7809-3764) /uL Lymph # (Auto) 1300 (0361-5144) /uL [place] # (Auto) 400 (0-900) /uL Eos # (Auto) 100 (0-450) /uL Baso # (Auto) 0 (0-100) /uL PT 12.7 H (9.4-12.5) SECONDS INR 1.1 (0.9-1.3) APTT 33 (25.1-36.5) SECONDS Sodium 137 (137-145) mmol/L Potassium 4.1 (3.4-5.1) mmol/L Chloride 106 (98-107) mmol/L Carbon Dioxide 23 (22-32) mmol/L BUN 19 H (7-17) mg/dL Creatinine 0.81 (0.52-1.04) mg/dL Estimated GFR > 60 (>60) mL/min BUN/Creatinine Ratio 23.5 H (6-22) Glucose 100 H (70-99) mg/dL Calcium 9.1 (8.4-10.2) mg/dL Magnesium 1.9 (1.6-2.3) mg/dL Total Bilirubin 0.4 (0.2-1.3) mg/dL AST 33 (14-36) IU/L ALT 25 (<35) IU/L Alkaline Phosphatase 87 (38-126) U/L Total Creatine Kinase 66 (30-135) U/L Troponin I < 0.012 < 0.012 (0.01-0.034) ng/mL NT-Pro-B Natriuret Pep 207 (<450) pg/mL Total Protein 6.9 (6.3-8.2) g/dL Albumin 4.1 (3.5-5.0) g/dL Globulin 2.8 (1.7-4.1) g/dL Albumin/Globulin Ratio 1.5 (1.0-2.8) Lipase 93 (23-300) U/L ECG Data Attestation: I personally reviewed and interpreted this ECG as follows: Prior ECG tracings: available for review Interpretation: Sinus bradycardia, left anterior fascicular block rate of 47 PA 194 QRS of 98 QTC of 400, no acute ST elevation appreciated appreciated. Patient has priors from 12/04/2024 which shows AFib with RVR followed by repeat EKG on 12/04/2024 which shows sinus rhythm with left anterior fascicular block that looks similar to today's no acute ST changes appreciated. [facility] Narrative Medical decision making narrative: Chest x-ray shows no acute process. Labs show normal white count, hemoglobin and platelets, INR is 1.1 with a PTT of 33 BUN 19 electrolytes are appropriate creatinine 0.81 glucose is 100 LFTs are normal with a troponin of less than 0.012 and a BNP of 207. Repeat troponin is negative at less than 0.012 EKG shows sinus bradycardia with left anterior fascicular block appears similar to prior with a rate of 47. 79-year-old female unsure if she was in atrial fibrillation but noted some chest discomfort earlier this morning when she woke up it had resolved shortly she is unsure if this was possibly being in atrial fibrillation. She did have a cardioversion in November she does not always noticed when she is in atrial fibrillation. Discharge Plan Departure Patient Disposition: Home Clinical Impression: Atypical chest pain, Bradycardia Instructions: DI for Atypical Chest Pain Activity Restrictions/Additional Instructions: Follow up with your physician and your casing in line feeder. I would recommend returning your prior dose of metoprolol as your heart rate is in the 40s today. Continue your other home medications as prescribed. You can take your blood thinner, metoprolol as well as your asthma medications at the same time. Please return if you have new or worsening symptoms, shortness of breath, lightheadedness or passing out or other new or concerning changes. Prescriptions: No Action omeprazole 20 mg capsule,delayed release(DR/EC) 20 mg PO DAILY Qty: 90 2RF Rx Instructions: pt only takes it as needed fluticasone propionate 110 mcg/actuation HFA aerosol inhaler 1 inh inhalation BID PRN (Reason: asthma) Qty: 12 2RF metoprolol succinate 25 mg tablet extended release 24 hr 25 mg PO DAILY Qty: 60 1RF cetirizine 10 MG tablet 10 mg PO PRN PRN (Reason: Allergic Symptoms) Qty: 0 multivitamin [Multiple Vitamins] 1 EACH tablet 1 tab PO QDAY Qty: 0 Eliquis 5 mg tablet 5 mg PO BID Qty: 60 2RF albuterol sulfate [Ventolin HFA] 90 mcg/actuation HFA aerosol inhaler 2 puff INHALATION Q4-6H PRN (Reason: wheezing) Qty: 18 3RF Referrals: Rocio Thomas MD [Primary Care Provider, Family Practice] Stand Alone Forms: Patient Portal/API
[2025-01-09 09:09] LABS: Troponin I < 0.012 ng/mL (0.01-0.034)
== END 2025-01-09 10:03 | disposition home or self-care (01) ==
PROVIDERS: Emergency Medicine; Emergency Provider Emergency Medicine; PCP Family Medicine
DX: R07.89 Other chest pain (principal); R00.1 Bradycardia, unspecified; I44.7 Left bundle-branch block, unspecified; Z79.01 Long term (current) use of anticoagulants
CPT/HCPCS: 36415; 71045; 80053; 82550; 83690; 83735; 83880; 84484; 85025; 85610; 85730; 93005; 99283; 99284

== ENCOUNTER → 2025-01-24 14:47 | Outpatient (CLI) | payer MEDICARE, OTHER, SELFPAY ==
[2024-05-22 13:46] VITALS: BMI 24.0
--- NOTE | 2025-01-24 14:49 | DI.ECHO.S_ITS ---
[facility] : : [id number] : : [place] : : [id number] : : Phone: [phone] Echocardiogram Report + + :Name: YOLIS US Study Date: 01/24/2025 Height: 65 in : :[facility] ReadingLocation: Weight: 139 lb : : Gender: Female BSA: 1.7 m2 : :: 1945 Age: 79 yrs BP: 148/80 mmHg: :Reason For Study: PAF : :Ordering Physician: RASHAUN, : :NIKOLAY Performed By: Humberto Rebolledo : :Referring: NIKOLAY RODNEY : + + Interpretation Summary The ejection fraction is estimated to be 60-65%. Diastolic function is indeterminate. The right ventricle is normal in size and function. There is mild aortic regurgitation. Pulmonary artery pressures cannot be estimated because of the lack of a measurable TR jet velocity but the IVC suggests a CVP of around 3 mmHg. Compared to the prior study 05/18/2023, no major change. Procedure: A two-dimensional transthoracic echocardiogram with color flow and Doppler was performed. The study quality was technically adequate. Comparison is made with the echocardiogram of 05/18/2023. The patient was in normal sinus rhythm during the exam. Left Ventricle: The left ventricle is normal in size and wall thickness. Left ventricular systolic function is normal. The ejection fraction is estimated to be 60-65%. There are no focal wall motion abnormalities. Diastolic function is indeterminate. Right Ventricle: The right ventricle is normal in size and function. Atria: The left atrial size is normal. Right atrial size is normal. There is no Doppler evidence for an interatrial shunt. Mitral Valve: The mitral valve leaflets appear to open well. There is no mitral valve stenosis. There is trace mitral regurgitation. Aortic Valve: The aortic valve is trileaflet. The aortic valve opens well. There is no aortic valve stenosis. There is mild aortic regurgitation. Tricuspid Valve: The tricuspid valve leaflets are thin and pliable. There is trace tricuspid regurgitation. Pulmonary artery pressures cannot be estimated because of the lack of a measurable TR jet velocity but the IVC suggests a CVP of around 3 mmHg. Pulmonic Valve: The pulmonic valve is not well seen, but is grossly normal. There is trace pulmonic regurgitation. Great Vessels: The aortic root is normal size. The ascending aorta is normal in size. The aortic arch could not be visualized. The pulmonary is not well visualized. The IVC is of normal diameter and collapses greater than 50% with a sniff. This suggests a low right atrial pressure of 3 mm Hg. Pericardium/ Pleura There is no pericardial effusion. MMode/2D Measurements & Calculations LVIDd: 4.3 cm LVOT diam: 2.0 cm LVIDs: 2.9 cm Ao root diam: 2.8 cm FS: 32.5 % asc Aorta Diam: 3.3 cm IVSd: 0.88 cm LVPWd: 0.90 cm LV albright. diameter/BSA (cm/m^2): 2.6 LV sys. diameter/BSA (cm/m^2): 1.7 LA A2 area: 16.0 cm2 RA long axis: 4.6 cm LA A4 area: 17.4 cm2 RA area: 10.7 cm2 LA length (vol): 5.0 cm RA vol: 20.8 ml LA vol: 47.2 ml RA : 12.3 ml/m2 LA vol index: 27.8 ml/m2 IVC diam: 1.8 cm RVD1 (basal): 2.6 cm RVD2 (mid): 2.3 cm TAPSE: 2.2 cm Doppler Measurements & Calculations Ao V2 max: 137.9 cm/sec LVOT Max Haris: 111.0 cm/sec Ao V2 mean: 87.5 cm/sec LV V1 max P.9 mmHg Ao max P.6 mmHg LV V1 VTI: 24.6 cm Ao mean P.6 mmHg CORNEL(I,D): 2.9 cm2 Ao V2 VTI: 26.0 cm CORNEL(V,D): 2.5 cm2 sev ratio: 0.95 CORNEL indexed to BSA (cm^2/m^2): 1.7 AI P1/2t: 521.9 msec AI dec slope: 226.3 cm/sec2 MV E max haris: 97.0 cm/sec TR max haris: 223.2 cm/sec MV A max haris: 96.4 cm/sec TR max P.9 mmHg MV E/A: 1.0 Med Peak E' Haris: 6.2 cm/sec E/E' med: 15.6 Lat Peak E' Haris: 7.0 cm/sec E/E' lat: 13.8 E/e' average: 14.7 MV dec time: 0.21 sec SV(LVOT): 74.9 ml Reading Physician:04:18 PM
== END ==
LOC: ECHO 14:48
PROVIDERS: PCP Family Medicine; Referring Provider Family Medicine; Visit Provider Internal Medicine Cardiovascular Disease
DX: I35.1 Nonrheumatic aortic (valve) insufficiency (principal); I48.0 Paroxysmal atrial fibrillation
CPT/HCPCS: 93306

== ENCOUNTER 2025-02-03 02:29 | Emergency (ER) | payer MEDICARE, OTHER, SELFPAY ==
[2024-05-22 13:46] VITALS: BMI 24.0
[2025-02-03] VITALS (8 sets, daily range): BP systolic 163–203; BP diastolic 76–95; PULSE 49–63; RESP 14–18; TEMP 36.3; O2SAT 96–98; BMI 23.1
--- NOTE | 2025-02-03 02:43 | EKG_ITS ---
[address] [address] Test Date: 2025-02-03 Pat Name: Alicia Richmond Department: Room: Gender: Female Jewel Inspector: VANGIE : 1945 Requested By: Order Number: [id number] Reading MD: Measurements Intervals Gilson Rate: 50 P: 49 RI: 188 QRS: -39 QRSD: 94 T: 17 QT: 448 QTc: 408 Interpretive Statements Sinus bradycardia Left axis deviation
--- NOTE | 2025-02-03 02:55 | DI.RAD.S_ITS ---
PROCEDURE: XR CHEST 1V INDICATIONS: afib TECHNIQUE: One view of the chest was acquired. COMPARISON: [facility], CR, XR CHEST 1V, 01/09/2025, 6:14. [facility], CT, CT HEAD/BRAIN WO CON, 02/03/2025, 4:15. FINDINGS: Surgical changes and devices: Shoulder arthroplasty hardware is seen. Lungs and pleura: An incomplete inspiratory result is noted, causing a crowded appearance to the lung markings. No focal infiltrates are seen. No pneumothorax or significant pleural effusions are seen. Mediastinum: The cardiac contours are mildly enlarged. The aorta demonstrates calcification and tortuosity. Bones and chest wall: No suspicious bony lesions. Age-appropriate bony degenerative changes are seen. Overlying soft tissues appear unremarkable. IMPRESSION: Limited study with clear lungs. Mild cardiomegaly. Postoperative and degenerative changes are seen. Note: No significant discrepancy from the preliminary report. Dictated by: Hang Guzman M.D. on 02/03/2025 at 7:20 Approved by: Hang Guzman M.D. on 02/03/2025 at 7:21
[2025-02-03 03:25] LABS: Add Manual Diff / Slide Review NO; Hematocrit 37.6 % (36-46); Hemoglobin 12.7 g/dL (12.0-16.0); Lymphocytes Absolute Auto 1300 /uL (1100-4500); Mean Corpuscular HGB Conc 33.7 % (30-36); Mean Corpuscular Hemoglobin 29.8 PG (26-34); Mean Corpuscular Volume 88.4 fL (80-100); Platelet Count 218 X10^3/uL (150-400)
--- NOTE | 2025-02-03 03:25 | ED.ARRPALP ---
HPI - Arrhythmia/Palpitations General Chief Complaint: Arrhythmia/Palpitations Stated Complaint: afib Time Seen by Provider: 02/03/25 02:41 Source: patient Mode of arrival: Ambulatory History of Present Illness HPI narrative: Patient is a 79-year-old female who presents to the ER today with concern for heart palpitations. History is significant for atrial fibrillation x 2 cardioversion (on metoprolol and Eliquis), asthma, hyperlipidemia. Patient states that she had not eaten dinner approximately 5:00 p.m. today and felt bloated afterwards. This evening, she was unsure if she was having heart palpitations or indigestion, therefore presented to the ER to be evaluated. Neighbor who has been her friend for 6 years is at bedside and states that patient has confusion started approximately 1 year ago and progressively worsened over the past month. Related Data Home Medications ?Medication ?Instructions ?Recorded ?Confirmed cetirizine 10 mg tablet 10 mg PO PRN PRN Allergic Symptoms 06/03/16 12/07/24 ##0 multivitamin (Multiple Vitamins 1 tab PO QDAY ##0 12/16/16 12/07/24 tablet) Previous Rx's ?Medication ?Instructions ?Recorded apixaban 5 mg tablet (Eliquis) 5 mg PO BID #60 tabs 06/30/23 omeprazole 20 mg capsule,delayed 20 mg PO DAILY #90 caps 07/13/24 release metoprolol succinate 25 mg 25 mg PO DAILY #60 tabs 10/09/24 tablet,extended release 24 hr albuterol sulfate 90 mcg/actuation 2 puff inhalation Q4-6H PRN 10/26/24 aerosol inhaler (Ventolin HFA) wheezing #18 grams fluticasone propionate 110 1 inh inhalation BID PRN asthma 01/24/25 mcg/actuation HFA aerosol inhaler #12 grams Allergies Allergy/AdvReac Type Severity Reaction Status Date / Time cephalexin (From KEFLEX) AdvReac Intermediate rash Verified 01/09/25 06:31 morphine (MORPHINE) AdvReac Intermediate rash Verified 01/09/25 06:31 high dose flu shot Allergy Throat Uncoded 01/09/25 06:31 closing, hoarsness Review of Systems Review of Systems Narrative: Pertinent positives and negatives as per HPI. Patient History Medical History Alzheimer's dementia Age-related cognitive decline Altered mental status Seasonal allergies Upper back pain Elevated blood pressure reading Heartburn Asthma Chronic rhinosinusitis Mixed hyperlipidemia Family history of cardiovascular disease Seasonal allergic rhinitis due to pollen Surgical History History of ankle surgery History of replacement of both shoulder joints Status post appendectomy Status post knee surgery Family History Father Leukemia Cancer Social History household members: none second hand exposure: No alcohol intake: current substance use type: does not use alcohol intake frequency: a few times a week Exam Initial Vital Signs Initial Vital Signs: Vital Signs Pulse Rate 63 02/03/25 02:37 Pulse Oximetry 98 02/03/25 02:37 Vitals in triage reviewed. HR 63, BP 193/94, map 127, RR 16, SpO2 96% on room air, T 97.4? F. Const Other: Well-developed, well-nourished in no acute Corey acute distress. Eyes Other: Equal round reactive. Resp Other: No increased work of breathing. Clear to auscultation all lung hatfield. Cardio Other: Regular rate, no murmurs rubs or gallops. GI Other: Soft, nondistended, nontender palpation all quadrants. Neuro Other: Cranial nerves intact. Rapid alternating movement, [id number], [id number] normal bilaterally. Psych Other: Patient does not tell HPI and linear fashion, very tangential. Mental status intact, A&O x4, speech, mood, affect appropriate. However thought process and thought content not entirely appropriate. Scores GCS Citation: 14 NIH Stroke Scale Citation:: Zero Course Course Course Narrative: 0401 Patient evaluated. There is concerned about patient's confusion. I reviewed her prior imaging which includes head CT, head and neck CTA, brain MRI. Head CT obtained on 05/2024 were without any intracranial pathology; MRI with small-vessel chronic ischemic changes. Given recent worsening confusion, repeat head CT was discussed with patient and friend at bedside. 0451 There was some issue with transmission of imaging to radiologist for read. Read obtained via fax revealing small lacunar infarct and right basal ganglia old in appearance. 3057 Stroke neurology, Dr. Lui, consulted. States that lacunar infarcts seen on imaging today was seen on prior imaging on 05/2024. Given chronicity of symptoms, do not believe patient warrants inpatient workup. 0537 Discussed ER workup and findings with patient and neighbor at bedside. 0541 Patient discharged from ER in stable condition. Orders Ordered: ED Orders 02/03/25 02:52 EKG-12 Lead Stat 02/03/25 02:55 CXR [XR chest 1V] Stat 02/03/25 03:13 CBC Auto Diff [Complete Blood Count AUTO DIFF] Stat CMP [Comprehensive Metabolic Panel] Stat Troponin I Stat 02/03/25 03:44 CT head/brain wo con Stat Vital Signs Vital signs: Vital Signs - 8 hr 02/03/25 02:37 02/03/25 02:39 02/03/25 02:39 Temperature Pulse Rate 63 54 L Respiratory Rate Blood Pressure 193/94 H Pulse Oximetry 98 98 Oxygen Delivery Method 02/03/25 02:52 02/03/25 03:00 02/03/25 03:01 Temperature 97.4 F L Pulse Rate 63 50 L 49 L Respiratory Rate 16 16 17 Blood Pressure 193/94 H Pulse Oximetry 96 98 96 Oxygen Delivery Method Room Air 02/03/25 03:01 02/03/25 03:30 02/03/25 03:30 Temperature Pulse Rate 51 L Respiratory Rate Blood Pressure 163/76 H 164/85 H Pulse Oximetry 98 Oxygen Delivery Method 02/03/25 04:00 02/03/25 04:01 02/03/25 04:01 Temperature Pulse Rate 52 L 52 L Respiratory Rate 18 14 Blood Pressure 203/95 H Pulse Oximetry 98 98 Oxygen Delivery Method MDM - Arrhythmia/Palpitations Lab Data 02/03/25 03:13 02/03/25 03:13 Labs: Lab Results 02/03/25 Range/Units 03:13 WBC 5.8 (4.5-11.0) X10^3/uL RBC 4.25 (4.0-5.2) X10^6/uL Hgb 12.7 (12.0-16.0) g/dL Hct 37.6 (36-46) % MCV 88.4 (80-100) fL MCH 29.8 (26-34) PG MCHC 33.7 (30-36) % RDW 13.7 (11.6-14.8) % Plt Count 218 (150-400) X10^3/uL Neut % (Auto) 64.8 (50-75) % Lymph % (Auto) 22.9 L (25-40) % [place] % (Auto) 9.6 (3-14) % Eos % (Auto) 2.0 (2-4) % Baso % (Auto) 0.7 (0-2) % Neut # (Auto) 3800 (9671-5752) /uL Lymph # (Auto) 1300 (8638-9297) /uL [place] # (Auto) 600 (0-900) /uL Eos # (Auto) 100 (0-450) /uL Baso # (Auto) 0 (0-100) /uL Sodium 137 (137-145) mmol/L Potassium 4.1 (3.4-5.1) mmol/L Chloride 106 (98-107) mmol/L Carbon Dioxide 24 (22-32) mmol/L BUN 22 H (7-17) mg/dL Creatinine 0.76 (0.52-1.04) mg/dL Estimated GFR > 60 (>60) mL/min BUN/Creatinine Ratio 28.9 H (6-22) Glucose 106 H (70-99) mg/dL Calcium 9.0 (8.4-10.2) mg/dL Total Bilirubin 0.4 (0.2-1.3) mg/dL AST 26 (14-36) IU/L ALT 22 (<35) IU/L Alkaline Phosphatase 79 (38-126) U/L Troponin I < 0.012 (0.01-0.034) ng/mL Total Protein 6.6 (6.3-8.2) g/dL Albumin 4.0 (3.5-5.0) g/dL Globulin 2.6 (1.7-4.1) g/dL Albumin/Globulin Ratio 1.5 (1.0-2.8) MDM Narrative Medical decision making narrative: Patient is a 79-year-old female with history of atrial fibrillation who presents for concern for her palpitations versus indigestion in the setting of intermittent compliance on metoprolol and Eliquis. Differential diagnosis: Atrial fibrillation recurrence or paroxysmal arrhythmia Medication effect (metoprolol, Eliquis) Dyspepsia/GERD, bloating, indigestion Dementia (progressive confusion over 1 year) Chronic small vessel ischemic disease Acute stroke/TIA (ruled out by imaging and neurology consult) Electrolyte disturbance (Na, K, Mg, Ca) Infection (UTI, pneumonia, sepsis) Labs obtained include CBC without leukocytosis or left shift. No anemia or thrombocytopenia. CMP with mild elevated BUN. No other metabolic derangements. Normal liver function tests. Troponin negative. EKG normal sinus rhythm and nonischemic. CT head with small lacunar infarct in the right basal ganglia likely to be old. This was compared to prior imaging to include CT head, CTA brain and neck, MRI obtained on 05/2024 which was largely unchanged. Stroke neurology consulted to ensure there were no acute stroke or no additional further management to decreased morbidity or mortality. Discussed with the patient supportive care for bloating/indigestion and outpatient follow-up with PCP if persistent. Encouraged patient to be more compliant with her medication. Patient was discharged home in stable condition with with neighbor. Return precautions for chest pain, palpitations, syncope, new neurologic deficits, worsening confusion was discussed with patient and new prepped bedside. Discharge Plan Departure Patient Disposition: Home Clinical Impression: History of atrial fibrillation, Abdominal bloating Instructions: DI for Atrial Fibrillation Activity Restrictions/Additional Instructions: No activity or diet restrictions. You were seen in the emergency department for concerns of atrial fibrillation. In the ER, you informed me that you were intermittently taking your metoprolol however been compliant this week. Your cardiac workup to include EKG, cardiac enzymes, blood work, electrolytes were normal. Given your memory changes, CT head was performed and revealed old strokes that were seen on prior imaging. Stroke neurology was consulted and agreed with this. Recommend: That you take your daily medications as prescribed. Return to the ER if you develop any new or worsening symptoms to include chest pain, shortness of breath, clamminess, nausea, vomiting or any other concerns. Prescriptions: No Action omeprazole 20 mg capsule,delayed release(DR/EC) 20 mg PO DAILY Qty: 90 2RF Rx Instructions: pt only takes it as needed metoprolol succinate 25 mg tablet extended release 24 hr 25 mg PO DAILY Qty: 60 1RF cetirizine 10 MG tablet 10 mg PO PRN PRN (Reason: Allergic Symptoms) Qty: 0 multivitamin [Multiple Vitamins] 1 EACH tablet 1 tab PO QDAY Qty: 0 Eliquis 5 mg tablet 5 mg PO BID Qty: 60 2RF albuterol sulfate [Ventolin HFA] 90 mcg/actuation HFA aerosol inhaler 2 puff INHALATION Q4-6H PRN (Reason: wheezing) Qty: 18 3RF fluticasone propionate 110 mcg/actuation HFA aerosol inhaler 1 inh inhalation BID PRN (Reason: asthma) Qty: 12 2RF Referrals: Rocio Thomas MD [Primary Care Provider, Family Practice] Stand Alone Forms: Patient Portal/API
[2025-02-03 03:37] LABS: Alanine Aminotransferase 22 IU/L (<35); Albumin 4.0 g/dL (3.5-5.0); Albumin Globulin Ratio 1.5 (1.0-2.8); Alkaline Phosphatase 79 U/L (38-126); Blood Urea Nitrogen 22 mg/dL (7-17); Calcium 9.0 mg/dL (8.4-10.2); Carbon Dioxide 24 mmol/L (22-32); Chloride 106 mmol/L (98-107); Estimated Glomerular Filt Rate > 60 mL/min (>60); Globulin 2.6 g/dL (1.7-4.1); Glucose 106 mg/dL (70-99); HEMOLYSIS < 15 (0-50); Potassium 4.1 mmol/L (3.4-5.1); Sodium 137 mmol/L (137-145); Total Protein 6.6 g/dL (6.3-8.2)
--- NOTE | 2025-02-03 03:44 | DI.CT.S_ITS ---
PROCEDURE: CT HEAD/BRAIN WO CON INDICATIONS: memory issues, changes in personality TECHNIQUE: Noncontrast 4.5 mm thick angled axial sections acquired from the foramen magnum to the vertex, with coronal and sagittal reformats. For radiation dose reduction, the following was used: automated exposure control, adjustment of mA and/or kV according to patient size. COMPARISON: [facility], CR, XR CHEST 1V, 02/03/2025, 3:36. [facility], CT, CT HEAD/BRAIN WO CON, 05/22/2024, 0:09. FINDINGS: Image quality: Diagnostic. CSF spaces: Basal cisterns are patent. No extra-axial fluid collections. The ventricles are symmetric in size and shape. Brain: No intracranial bleeds or mass effect. There is cerebral volume loss, with resultant ventricular and sulcal prominence. There are periventricular and deep white matter chronic small vessel ischemic changes. Minimal remote lacunar infarctions can be seen. There is intracranial internal carotid artery atherosclerosis. Skull and face: Calvarium and visualized facial bones appear intact, without suspicious lesions. Incidental note is made of hyperostosis frontalis. This is not considered to be pathologic in a woman of this age. Sinuses: Visualized sinuses and mastoids are clear. IMPRESSION: Stable head CT, without an acute abnormality identified. Note is made of age-appropriate brain parenchymal volume loss and chronic small vessel ischemic changes. Minimal remote lacunar infarctions seen. Note: No significant discrepancy from the preliminary report. Dictated by: Hang Guzman M.D. on 02/03/2025 at 7:24 Approved by: Hang Guzman M.D. on 02/03/2025 at 7:25
[2025-02-03 03:49] LABS: Troponin I < 0.012 ng/mL (0.01-0.034)
== END 2025-02-03 05:44 | disposition home or self-care (01) ==
PROVIDERS: Emergency Provider Student in an Organized Health Care Education/Training Program; PCP Family Medicine
DX: I48.91 Unspecified atrial fibrillation (principal); R14.0 Abdominal distension (gaseous); R41.0 Disorientation, unspecified; Z79.01 Long term (current) use of anticoagulants
CPT/HCPCS: 70450; 71045; 80053; 84484; 85025; 93005; 99281; 99284